=== PATIENT | male | born 1940 | race Caucasian/White ===

== ENCOUNTER → 2018-07-01 08:36 | Outpatient (BNVA) | payer MEDICARE, SELFPAY | PROVIDERS: Visit Provider Urology | DX: R35.0 Frequency of micturition (principal) | CPT/HCPCS: 99213 ==

== ENCOUNTER → 2018-09-24 08:31 | Outpatient (BNVA) | payer MEDICARE, SELFPAY | PROVIDERS: PCP Family Medicine; Visit Provider Urology | DX: R39.15 Urgency of urination (principal); N40.1 Benign prostatic hyperplasia with lower urinary tract symptoms | CPT/HCPCS: 99213 ==

== ENCOUNTER 2018-11-22 17:19 | Observation (INO) | payer MEDICARE, SELFPAY ==
[2018-11-22] VITALS (20 sets, daily range): BP systolic 85–124; BP diastolic 42–75; PULSE 67–104; RESP 12–38; TEMP 36.6–37; O2SAT 94–96
--- NOTE | 2018-11-22 17:49 | DI.COMBO_ITS ---
SYMPTOM/DIAGNOSIS: COUGH, SMOKER, HYPOTENSION, RT SIDED NECK PAIN, ALTERED MENTAL STAT FRONTAL AND LATERAL CHEST: Comparison is made with 09/03/15. Heart size and pulmonary vasculature are within normal limits. The lungs are free of infiltrates, effusions or pneumothoraces. The lungs are hyperinflated with flattened diaphragms suggesting underlying COPD. Degenerative changes are seen in the spine. There is mild accentuation of the kyphosis of the thorax. IMPRESSION: No acute pulmonary process. NONCONTRAST HEAD CT: Comparison is made with 09/26/12. There is prominence of the ventricles and sulci consistent with the patient's age. Areas of decreased attenuation are present in the white matter, most consistent with small vessel ischemic disease. No acute intracranial hemorrhage, infarct, midline shift or mass effect is identified. The ventricles are intact. The basilar cisterns are patent. The visualized paranasal sinuses are clear. The mastoid air cells are well pneumatized. The calvarium is intact. IMPRESSION: No acute intracranial process. CTA OF HEAD AND NECK: CT angiography was performed with multi slice acquisition and multi planar and 3D reconstruction. NECK: There is atherosclerosis of the aortic arch noted. The common carotid arteries are unremarkable. No occlusion,dissection or significant stenosis. The external carotid arteries are unremarkable. No evidence of occlusion or significant stenosis. There is atherosclerotic calcification in the left carotid bulb and the proximal left internal carotid artery with less than 50% stenosis noted. There is atherosclerosis seen in the right carotid bulb and origin of the right internal carotid artery without significant stenosis. No occlusion or dissection is seen. The vertebral arteries are unremarkable. No evidence of significant stenosis, dissection or occlusion. Degenerative changes are seen in the spine. Severe centrilobular and paraseptal emphysematous changes are seen in the lung apices. 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 No significant stenosis, dissection or occlusion is seen. HEAD: Routine post contrast examination was performed. Sagittal and coronal images were evaluated on the Siemens work station. There is atherosclerotic calcification of the cavernous sinus portions of the internal carotid arteries bilaterally. No evidence of occlusion, aneurysm or significant stenosis is seen. The anterior cerebral arteries are unremarkable. No evidence of aneurysm, occlusion or significant stenosis. The middle cerebral arteries are unremarkable. No evidence of aneurysm, occlusion or significant stenosis. The left posterior cerebral artery appears to arise from the posterior communicating artery. It is unremarkable without evidence of aneurysm, occlusion or significant stenosis. The right posterior cerebral artery is unremarkable without evidence of occlusion, aneurysm or significant stenosis. The vertebral arteries and basilar artery are unremarkable. No evidence of occlusion, dissection, aneurysm or significant stenosis. IMPRESSION: No evidence of intracranial arterial occlusion, dissection or aneurysm.
--- NOTE | 2018-11-22 17:55 | W.ED.GENAD ---
Discharge Plan Disposition Patient Disposition: [facility] INPATIENT Condition: Good Discharge Details Chief Complaint: Nk/Back Pain Clinical Impression: Hypotension, Hypokalemia Reason For Visit: HYPOTENSION,HYPOKALEMIA,NECK PAIN,EPISODE OF Admit Date/Time: 11/22/18 19:53 Admit Provider: Kamaljit Piper Attending Provider: Kamaljit Piper Primary Care Provider: Costa Lockett ED Provider: Yenni Johnson Discharge Data Discharge Date/Time-TO BE ENTERED AT DEPARTURE: 11/22/18 20:21 Medical Decision Making 77-year-old male with a history of hypertension and BPH and a history of chronic right-sided neck pain for the past 8 months who presents with worsening right-sided neck pain today. also states he had a period of confusion today which is since resolved. Patient drank 2 beers today. He is a daily drinker of 2-3 beers. Patient hypotensive. Systolic on arrival 88. Remainder vitals within normal limits. Patient appears nontoxic. Normal ENT exam. Lungs clear to auscultation. Abdomen soft and nontender. No focal deficits. He has tenderness to palpation of his right cervical paraspinal region but no midline C-spine/T-spine/L-spine tenderness. Differential diagnosis includes pneumonia, UTI, carotid dissection, electrolyte abnormality, ND. EKG notes a rate of 86, sinus, no acute ST findings. Will place an IV, bolus IV fluids, labs, lactate, blood cultures, chest x-ray, urinalysis, CT head. Will also obtain a CTA brain and neck. 1944 --labs and imaging reviewed. Normal white blood cell count and hemoglobin. Sodium 132. Potassium 2.3. Creatinine 1.79, GFR 36. Lactate 3. Troponin negative. Urinalysis not yet obtained. Discussed with nurse to obtain Specimen. CT head and CTA head and neck negative. Chest x-ray negative for acute findings. Patient's blood pressure improved with fluids, 111/71. Considering patient's age, hypokalemia which may be attributed to his Lasix, and an episode of confusion today, will admit patient for observation overnight, repeat potassium in the morning, and to monitor blood pressure. Suspect his blood pressure may be due to his blood pressure medications and alcohol use. 1999 --discussed with hospitalist -accepts patient for admission. Notified hospitalist that due to high number of patients in the emergency department after patient was admitted, patient was transferred to the floor prior to my discussion with him regarding his diagnosis and plan. Medical Records Medical records reviewed: Yes I reviewed the patient's medical records. Imaging Data Radiologic Study: Radiologist's impression: CT Head Without Contrast EXAM DATE/TIME: 11/22/2018 5:54 PM FINDINGS: Brain: Global cerebral atrophy is consistent with patient's age. Decreased attenuation within the white matter tracts of both cerebral hemispheres is nonspecific but typically seen with small vessel disease/chronic white matter ischemic changes of aging. No CT scan evidence of acute stroke. No intracranial hemorrhage or mass effect. Ventricles: Unremarkable. No ventriculomegaly. Bones/joints: Unremarkable. No acute fracture. Sinuses: Visualized sinuses are unremarkable. No acute sinusitis. Mastoid air cells: Visualized mastoid air cells are unremarkable. No mastoid effusion. Soft tissues: Unremarkable. Vasculature: Atherosclerosis of the cavernous carotid arteries. IMPRESSION: No acute abnormality. CT Angiography Head With Contrast EXAM DATE/TIME: 11/22/2018 5:54 PM FINDINGS: Right internal carotid artery: Atherosclerosis of the right cavernous carotid artery. No occlusion, dissection or aneurysm. Right anterior cerebral artery: Unremarkable. No occlusion or significant stenosis. No aneurysm. Right middle cerebral artery: Unremarkable. No occlusion or significant stenosis. No aneurysm. Right posterior cerebral artery: Unremarkable. No occlusion or significant stenosis. No aneurysm. Right vertebral artery: Unremarkable. No occlusion or significant stenosis. No aneurysm. Left internal carotid artery: Mild atherosclerosis of the left cavernous carotid artery. No occlusion, aneurysm or dissection. Left anterior cerebral artery: Unremarkable. No occlusion or significant stenosis. No aneurysm. Left middle cerebral artery: Unremarkable. No occlusion or significant stenosis. No aneurysm. Left posterior cerebral artery: Unremarkable. No occlusion or significant stenosis. No aneurysm. Left vertebral artery: Unremarkable. No occlusion or significant stenosis. No aneurysm. Basilar artery: Unremarkable. No occlusion or significant stenosis. No aneurysm. IMPRESSION: No intracranial arterial occlusion, dissection or aneurysm. CT Angiography Neck With Contrast EXAM DATE/TIME: 11/22/2018 5:54 PM FINDINGS: VASCULATURE: Right common carotid artery: Normal. No significant stenosis. No dissection or occlusion. Right internal carotid artery: Mild atherosclerosis of the proximal right ICA without significant stenosis or dissection. Right external carotid artery: Normal. No occlusion or significant stenosis. Right vertebral artery: Normal. No significant stenosis. No dissection or occlusion. Left common carotid artery: Normal. No significant stenosis. No dissection or occlusion. Left internal carotid artery: Mild atherosclerosis of the proximal left ICA with less than 50% stenosis. No left ICA dissection. Left external carotid artery: Normal. No occlusion or significant stenosis. Left vertebral artery: Normal. No significant stenosis. No dissection or occlusion. Aorta: Mild atherosclerosis of the aortic arch and origin of the great vessels. No significant stenosis. No dissection. NECK: Bones/joints: Degenerative spondylosis of the cervical spine. Soft tissues: Unremarkable. No significant soft tissue swelling. Lungs: Severe diffuse bilateral centrilobular and paraseptal emphysema. IMPRESSION: Mild atherosclerosis of the aortic arch, origin of the great vessels and proximal aspects of the right and left internal carotid arteries. No significant stenosis or dissection. XR Chest, 2 Views EXAM DATE/TIME: 11/22/2018 5:55 PM FINDINGS: The lungs are hyperexpanded, consistent with COPD. The lungs are clear. The cardiomediastinal silhouette and pulmonary vasculature are within normal limits. No pleural effusion or pneumothorax. Degenerative changes of aging within the thoracic spine with mild accentuation of thoracic kyphosis. IMPRESSION: 1. COPD. 2. No acute abnormality. Lab Data Lab results reviewed: Yes I reviewed the patient's lab results. 11/22/18 17:49 Blood Blood Culture - Pending 11/22/18 17:49 Blood Blood Culture - Pending Laboratory Tests Range/Units 11/22/18 11/22/18 11/22/18 17:48 17:48 17:48 WBC (4.4-10.8) k/cumm 6.02 RBC (4.50-6.00) m/cumm 3.80 L Hgb (13.5-17.5) g/dL 13.9 Hct (40.0-50.0) % 37.7 L MCV (80-95) fL 99.2 H MCH (27.0-33.0) pg 36.6 H MCHC (32.0-36.0) g/dL 36.9 H RDW (11.8-14.1) % 12.5 Plt Count (130-400) x1000/uL 152 MPV (8.0-11.0) fL 10.6 Immature Gran % 0.2 Neutrophils % 63.9 Lymphocytes % 23.3 Monocytes % 10.5 Eosinophils % 1.8 Basophils % 0.3 Absolute Neutrophils (1.2-6.7) k/cumm 3.85 Absolute Lymphocytes (1.2-3.4) k/cumm 1.40 Absolute Monocytes (0.11-0.7) k/cumm 0.63 Absolute Eosinophils (0.0-0.7) k/cumm 0.11 Absolute Basophils (0.0-0.2) k/cumm 0.02 Sodium (136-145) mmol/L 132 L Potassium (3.5-5.1) mmol/L 2.3 L* Chloride (98-107) mmol/L 92 L Carbon Dioxide (21.0-32.0) mmol/L 30.9 Anion Gap (3-11) mmol/L 9.1 BUN (7-18) mg/dL 15 Creatinine (0.70-1.30) mg/dL 1.79 H Estimated GFR/1.73 m2 (mL/min/1.73m2) 36.82 Glucose (70-100) mg/dL 99 Lactate (0.6-1.4) mmol/l Calcium (8.5-10.1) mg/dL 8.5 Magnesium (1.8-2.4) mg/dL 1.7 L Total Bilirubin (0.2-1.0) mg/dL 0.5 AST (15-37) U/L 25 ALT (12-78) U/L 18 Alkaline Phosphatase (46-116) U/L 48 Troponin I (0.00-0.06) ng/mL < 0.02 Total Protein (6.4-8.2) g/dL 6.9 Albumin (3.4-5.0) g/dL 3.4 Ethyl Alcohol (<3) mg/dL 136.6 Range/Units 11/22/18 18:00 WBC (4.4-10.8) k/cumm RBC (4.50-6.00) m/cumm Hgb (13.5-17.5) g/dL Hct (40.0-50.0) % MCV (80-95) fL MCH (27.0-33.0) pg MCHC (32.0-36.0) g/dL RDW (11.8-14.1) % Plt Count (130-400) x1000/uL MPV (8.0-11.0) fL Immature Gran % Neutrophils % Lymphocytes % Monocytes % Eosinophils % Basophils % Absolute Neutrophils (1.2-6.7) k/cumm Absolute Lymphocytes (1.2-3.4) k/cumm Absolute Monocytes (0.11-0.7) k/cumm Absolute Eosinophils (0.0-0.7) k/cumm Absolute Basophils (0.0-0.2) k/cumm Sodium (136-145) mmol/L Potassium (3.5-5.1) mmol/L Chloride (98-107) mmol/L Carbon Dioxide (21.0-32.0) mmol/L Anion Gap (3-11) mmol/L BUN (7-18) mg/dL Creatinine (0.70-1.30) mg/dL Estimated GFR/1.73 m2 (mL/min/1.73m2) Glucose (70-100) mg/dL Lactate (0.6-1.4) mmol/l 3.0 H Calcium (8.5-10.1) mg/dL Magnesium (1.8-2.4) mg/dL Total Bilirubin (0.2-1.0) mg/dL AST (15-37) U/L ALT (12-78) U/L Alkaline Phosphatase (46-116) U/L Troponin I (0.00-0.06) ng/mL Total Protein (6.4-8.2) g/dL Albumin (3.4-5.0) g/dL Ethyl Alcohol (<3) mg/dL ECG Data Attestation: I personally reviewed and interpreted this ECG (s) as follows: Interpretation: Rate of 86, sinus, PACs. No acute ST elevation or depression. QTc 440. QRS 88. HPI General Mode of arrival: wheelchair. Date/Time Provider Initiated Documentation: 11/22/18 17:36. Limitations to Documentation: no limitations. Information obtained by: patient and family. HPI Narrative: Patient is a 77-year-old male with history of hypertension and BPH who presents for right-sided neck pain for the past 8 months, worse today at home. Denies any new injury. Patient denies headache, fever, chest pain, shortness of breath, nausea, vomiting. Patient states he had 2 beers today. states patient had a period of severe right-sided neck pain and appeared confused but now he seems more back at his baseline. Patient denies any unilateral extremity weakness or numbness. Related Data Home Medications Medication Instructions Recorded Confirmed ibuprofen 600 mg PO Q8H PRN PRN #30 tab 03/21/18 11/21/18 lisinopril 20 mg tablet 20 mg PO DAILY #90 tab-cap 11/21/18 11/21/18 tamsulosin 0.4 mg capsule 0.4 mg PO DAILY #90 cap 11/21/18 11/21/18 trazodone 50 mg tablet 50 mg PO hs prn #90 tab-cap 11/21/18 11/21/18 potassium chloride [Klor-Con M10] 10 meq PO BID #14 tab 11/23/18 Previous Rx's Medication Instructions Recorded ibuprofen 600 mg PO Q8H PRN PRN #30 tab 03/21/18 lisinopril 20 mg tablet 20 mg PO DAILY #90 tab-cap 11/21/18 tamsulosin 0.4 mg capsule 0.4 mg PO DAILY #90 cap 11/21/18 trazodone 50 mg tablet 50 mg PO hs prn #90 tab-cap 11/21/18 potassium chloride [Klor-Con M10] 10 meq PO BID #14 tab 11/23/18 Allergies Allergy/AdvReac Type Severity Reaction Status Date / Time hydrochlorothiazide AdvReac Severe URINARY Verified 11/21/18 13:03 FREQ General Stated Complaint: Nk/Back Pain JULIENNE: 3 Review of Systems Review of Systems All systems reviewed & are unremarkable except as noted in HPI and below Constitutional Denies chills and Denies fever(s) Eyes Denies blurry vision ENT Denies dizziness, Reports neck pain, Denies sore throat and Denies throat swelling Cardiovascular Denies chest pain and Denies dyspnea Respiratory Reports cough and Denies dyspnea Gastrointestinal Denies abdominal pain, Denies diarrhea and Denies vomiting Genitourinary Denies hematuria and Denies dysuria Musculoskeletal Denies back pain, Reports neck pain and Denies numbness Integumentary/Breasts Denies lesions and Denies rash Neurologic Denies dizziness, Denies focal weakness and Denies numbness Allergic/Immunologic Denies throat swelling [facility] Medical History BPH (benign prostatic hyperplasia) (Chronic) HTN (hypertension) (Chronic) Surgical History History of cataract surgery (Chronic) Colonoscopy - [facility] Social History Smoking and Tabacco status: Current every day alcohol intake: current alcohol intake frequency: 3 or more drinks per day substance use type: does not use Exam Const General: cooperative and no acute distress Orientation: alert, awake and oriented x3 HENMT Head: normal to inspection Ears: hearing grossly normal bilaterally, external ears normal and TM's normal bilaterally General nose exam: external nose normal Face and sinus: normal facial exam Mouth: oral mucosae normal Teeth and gingiva: dentition normal Throat: posterior oropharynx normal Eyes General: appearance normal, both eyes and all related structures Eyelids: eyelids normal Pupils: PERRL EOM: EOM intact bilaterally Neck Neck: normal visual inspection Lymphatic: no lymphadenopathy noted Chest Chest: normal inspection of the chest Resp Effort & Inspection: normal respiratory effort and able to speak in complete sentences Auscultation: clear to auscultation bilaterally Cardio Rate: regular rate Rhythm: regular rhythm GI Inspection: normal to inspection Palpation: soft, not firm, no guarding, no hepatosplenomegaly, no masses and nontender Auscultation: normal bowel sounds Back/Spine/Pelvis Cervical Spine: cervical muscular tenderness (Right-sided) and No cervical spinal tenderness Thoracic/Lumbar Spine: No thoracic spinal tenderness and No lumbar spinal tenderness Skin General skin exam: no rashes or lesions noted Neuro General: alert and awake Cranial Nerves: CN's II-XI intact bilaterally Cognition: normal cognition Speech: speech normal Gait: normal gait Motor: muscle tone normal throughout and strength 5/5 throughout Sensory Exam: no sensory deficits noted Extrem General: normal to inspection, full ROM, normal capillary refill and no edema Psych Appearance: grossly normal Mental Status: mental status grossly normal Speech and Movement: speech and movement normal Affect: normal affect Thought Process: normal Course Vital Signs Temperature 98.4 F 11/22/18 17:33 Pulse 72 11/22/18 17:33 Respiratory Rate 16 11/22/18 17:33 Blood Pressure 90/45 L 11/22/18 17:33 Pulse Oximetry 95 11/22/18 17:33 Temperature 98.4 F 11/22/18 17:33 Temperature Source Skin 03/08/19 17:33 Pulse 72 11/22/18 17:33 Respiratory Rate 16 11/22/18 17:33 Blood Pressure 90/45 L 11/22/18 17:33 Blood Pressure Position Supine 11/22/18 17:33 Pulse Oximetry 95 11/22/18 17:33 Oxygen Delivery Method Room Air 11/22/18 17:33 Oxygen Flow Rate 0 11/22/18 17:33 Pain Level 10 11/22/18 17:43 Lab/Test Results Lab/Test Results: 11/22/18 17:49 Blood Blood Culture - Pending 11/22/18 17:49 Blood Blood Culture - Pending
[2018-11-22 18:11] LABS: Abs Immature Grans 0.01 k/cumm (0.0-0.09); Absolute Basophil Count 0.02 k/cumm (0.0-0.2); Absolute Eosinophil Count 0.11 k/cumm (0.0-0.7); Absolute Monocyte Count 0.63 k/cumm (0.11-0.7); Absolute Neutrophil Count 3.85 k/cumm (1.2-6.7); Basophils % 0.3; Eosinophils % 1.8; HCT 37.7 % (40.0-50.0); HGB 13.9 g/dL (13.5-17.5); Immature Grans % 0.2; Lymphocytes % 23.3; Mean Corp. HGB Concentration 36.9 g/dL (32.0-36.0); Mean Corpuscular Hemoglobin 36.6 pg (27.0-33.0); Mean Corpuscular Volume 99.2 fL (80-95); Mean Platelet Volume 10.6 fL (8.0-11.0); Monocytes % 10.5; Neutrophils % 63.9; Platelet Count 152 x1000/uL (130-400); RBC Distribution Width 12.5 % (11.8-14.1); White Blood Cell Count 6.02 k/cumm (4.4-10.8)
[2018-11-22 18:21] LABS: ETHANOL BLOOD 136.6 mg/dL (<3)
[2018-11-22 18:24] LABS: ALT 18 U/L (12-78); AST 25 U/L (15-37); Albumin 3.4 g/dL (3.4-5.0); Alkaline Phosphatase 48 U/L (46-116); Anion Gap 9.1 mmol/L (3-11); BUN 15 mg/dL (7-18); Bilirubin, Total 0.5 mg/dL (0.2-1.0); CO2 30.9 mmol/L (21.0-32.0); CREATININE 1.79 mg/dL (0.70-1.30); Calcium 8.5 mg/dL (8.5-10.1); Chloride 92 mmol/L (98-107); Estimated GFR 36.82 (mL/min/1.73m2); Glucose 99 mg/dL (70-100); Magnesium 1.7 mg/dL (1.8-2.4); Sodium 132 mmol/L (136-145); Total Protein 6.9 g/dL (6.4-8.2)
[2018-11-22 18:25] LABS: Potassium 2.3 mmol/L (3.5-5.1); Troponin I < 0.02 ng/mL (0.00-0.06)
--- NOTE | 2018-11-22 18:46 | DI.VRAD_ITS ---
EXAM: CT Head Without Contrast EXAM DATE/TIME: 11/22/2018 5:54 PM CLINICAL HISTORY: 77 years old, male; Signs and symptoms; Altered mental status/memory loss; Additional info: R/O acute process TECHNIQUE: Axial computed tomography images of the head/brain without contrast. Coronal and sagittal reformatted images were created and reviewed. COMPARISON: CT HEAD WITHOUT CONTRAST 09/26/2012 8:26 PM FINDINGS: Brain: Global cerebral atrophy is consistent with patient's age. Decreased attenuation within the white matter tracts of both cerebral hemispheres is nonspecific but typically seen with small vessel disease/chronic white matter ischemic changes of aging. No CT scan evidence of acute stroke. No intracranial hemorrhage or mass effect. Ventricles: Unremarkable. No ventriculomegaly. Bones/joints: Unremarkable. No acute fracture. Sinuses: Visualized sinuses are unremarkable. No acute sinusitis. Mastoid air cells: Visualized mastoid air cells are unremarkable. No mastoid effusion. Soft tissues: Unremarkable. Vasculature: Atherosclerosis of the cavernous carotid arteries. IMPRESSION: No acute abnormality. Dictated and Authenticated by: Slick Young MD. Ordering:MAC Hyman MD
--- NOTE | 2018-11-22 18:48 | DI.VRAD_ITS ---
EXAM: XR Chest, 2 Views EXAM DATE/TIME: 11/22/2018 5:55 PM CLINICAL HISTORY: 77 years old, male; Signs and symptoms; Cough; Additional info: Smoker, hypotension TECHNIQUE: XR of the chest, 2 views. COMPARISON: CR CHEST 2 VIEWS PA,LAT 09/03/2015 9:50 AM FINDINGS: The lungs are hyperexpanded, consistent with COPD. The lungs are clear. The cardiomediastinal silhouette and pulmonary vasculature are within normal limits. No pleural effusion or pneumothorax. Degenerative changes of aging within the thoracic spine with mild accentuation of thoracic kyphosis. IMPRESSION: 1. COPD. 2. No acute abnormality. Dictated and Authenticated by: Slick Young MD. Ordering:MAC Hyman MD
[2018-11-22] MEDS: Omnipaque 350 MG/ML 100 ML BTL IJ (18:53)
[2018-11-22] MEDS: Normal Saline Flush 10 ML SYR IVP ×2 (19:13→22:21)
[2018-11-22] MEDS: Potassium Chloride 20 MEQ TABCR 40 MEQ PO (19:13)
[2018-11-22] MEDS: POTASSIUM CHLORIDE 20 MEQ/100 ML BAG 50 MEQ IVPB (19:14)
[2018-11-22] MEDS: Normal Saline 500 ML 1000 ML IV (19:16)
--- NOTE | 2018-11-22 19:39 | DI.VRAD_ITS ---
EXAM: CT Angiography Head With Contrast EXAM DATE/TIME: 11/22/2018 5:54 PM CLINICAL HISTORY: 77 years old, male; Signs and symptoms; Other: R sided neck pain, hypotension, R/O carotid dissection; Additional info: Smoker, hypotension TECHNIQUE: Axial computed tomographic angiography images of the head with intravenous contrast using CT angiography protocol. All CT scans at this facility use at least one of these dose optimization techniques: automated exposure control; mA and/or kV adjustment per patient size (includes targeted exams where dose is matched to clinical indication); or iterative reconstruction. Coronal reformatted images were created and reviewed. MIP reconstructed images were created and reviewed. CONTRAST: Contrast Material: 85 ml of omnipaque 350; Contrast Route: iv COMPARISON: CT HEAD WO 11/22/2018 6:07 PM FINDINGS: Right internal carotid artery: Atherosclerosis of the right cavernous carotid artery. No occlusion, dissection or aneurysm. Right anterior cerebral artery: Unremarkable. No occlusion or significant stenosis. No aneurysm. Right middle cerebral artery: Unremarkable. No occlusion or significant stenosis. No aneurysm. Right posterior cerebral artery: Unremarkable. No occlusion or significant stenosis. No aneurysm. Right vertebral artery: Unremarkable. No occlusion or significant stenosis. No aneurysm. Left internal carotid artery: Mild atherosclerosis of the left cavernous carotid artery. No occlusion, aneurysm or dissection. Left anterior cerebral artery: Unremarkable. No occlusion or significant stenosis. No aneurysm. Left middle cerebral artery: Unremarkable. No occlusion or significant stenosis. No aneurysm. Left posterior cerebral artery: Unremarkable. No occlusion or significant stenosis. No aneurysm. Left vertebral artery: Unremarkable. No occlusion or significant stenosis. No aneurysm. Basilar artery: Unremarkable. No occlusion or significant stenosis. No aneurysm. IMPRESSION: No intracranial arterial occlusion, dissection or aneurysm. EXAM: CT Angiography Neck With Contrast EXAM DATE/TIME: 11/22/2018 5:54 PM CLINICAL HISTORY: 77 years old, male; Signs and symptoms; Other: R sided neck pain, hypotension, R/O carotid dissection; Additional info: Smoker, hypotension TECHNIQUE: Axial computed tomographic angiography images of the neck with intravenous contrast using CT angiography protocol. All CT scans at this facility use at least one of these dose optimization techniques: automated exposure control; mA and/or kV adjustment per patient size (includes targeted exams where dose is matched to clinical indication); or iterative reconstruction. Coronal reformatted images were created and reviewed. MIP reconstructed images were created and reviewed. CONTRAST: Contrast Material: 85 ml of omnipaque 350; Contrast Route: iv COMPARISON: CT HEAD WO 11/22/2018 6:07 PM FINDINGS: VASCULATURE: Right common carotid artery: Normal. No significant stenosis. No dissection or occlusion. Right internal carotid artery: Mild atherosclerosis of the proximal right ICA without significant stenosis or dissection. Right external carotid artery: Normal. No occlusion or significant stenosis. Right vertebral artery: Normal. No significant stenosis. No dissection or occlusion. Left common carotid artery: Normal. No significant stenosis. No dissection or occlusion. Left internal carotid artery: Mild atherosclerosis of the proximal left ICA with less than 50% stenosis. No left ICA dissection. Left external carotid artery: Normal. No occlusion or significant stenosis. Left vertebral artery: Normal. No significant stenosis. No dissection or occlusion. Aorta: Mild atherosclerosis of the aortic arch and origin of the great vessels. No significant stenosis. No dissection. NECK: Bones/joints: Degenerative spondylosis of the cervical spine. Soft tissues: Unremarkable. No significant soft tissue swelling. Lungs: Severe diffuse bilateral centrilobular and paraseptal emphysema. IMPRESSION: Mild atherosclerosis of the aortic arch, origin of the great vessels and proximal aspects of the right and left internal carotid arteries. No significant stenosis or dissection. COMMENT: Reference per NASCET criteria for degree of stenosis: Mild: less than 50% stenosis. Moderate: 50-69% stenosis. Severe: 70-94% stenosis. Near occlusion: 95-99% stenosis. Dictated and Authenticated by: Slick Young MD. Ordering:MAC Hyman MD
--- NOTE | 2018-11-22 21:29 | HPE_ITS ---
Date of service: 11/22/18 Time of Service: 21:28 Assessment and Plan (1) Altered mental status: Start date: 11/22/18 Current visit: Yes Status: Acute This is a 77-year-old gentleman who drinks beer daily and most likely became mildly dehydrated with alcohol intake and being on diuretics which resulted in altered mental status but also mild hypotension which corrected with IV fluids and hypokalemia which will be corrected with IV and oral supplement. He was at his baseline for the time I saw him and during his stay in the ED but was kept for observation because of his presentation and the need to replace potassium prior to releasing home. He was most concerned about his neck pain which was persisting and has poor insight into his home habits possibly exace rbating his medical problems. He will be observed overnight with IV hydration and IV potassium along with oral potassium to be continued in the morning with follow-up labs. If he is stable he will be discharged home for continued medical follow-up with his PMD. (2) Hypokalemia: Start date: 11/22/18 Current visit: Yes Status: Acute Patient is currently on furosemide but not on potassium supplement. This may need to be followed closely as outpatient supplemented IV and orally and probably discharged on oral supplement with close follow-up as an outpatient with PMD. (3) Hypotension: Start date: 11/22/18 Current visit: Yes Status: Acute This most likely secondary to mild dehydration which responded to IV fluid resuscitation. Chronically he is on Lasix and should have adequate hydration without use of alcohol daily. (4) Dehydration: Start date: 11/22/18 Current visit: Yes Status: Acute As stated above the patient most likely has this is a problem secondary to alcohol intake with ongoing diuretics. He should avoid alcohol hydrate well during the day with IV hydration overnight during his observation. This probably was the cause of his altered mental status as well. History of Present Illness Chief Complaint: Neck pain with mental status changes just prior to arrival to ED Narrative: This is a 77-year-old gentleman who has chronic neck pain for the last 8 months which he was told is arthritis. He was worsening just prior to presentation to the ED tonight with the patient having a change in mental status acting confused compared to his baseline and his called the ambulance and to be evaluated in the ED. In the ED after IV fluid resuscitation for mild hypotension he was more toward his baseline, smelled strongly of alcohol though he stated he only drinks 2 beers a day and he had less severe neck pain. With IV hydration he improved overall except for his neck pain persisting at the time I saw him he thought he was simply coming in to get something for his neck pain and to go home. He was found to be hypokalemic requiring IV potassium replacement and appears slightly dry which may have been why he cleared up some with IV hydration in the ED. He was admitted for observation for continued IV fluid resuscitation and replacement of the potassium. Questioned him about his drinking and smoking and advised that this was not healthy with his use of Lasix chronically and would not help his chronic arthritic pain. He was cooperative during exam but avoided talking about stopping his alcohol and tobacco. He did state that he saw a urologist to help with his nocturia and was placed on tamsulosin but thought that taken his Lasix later in the day just afternoon helped more than the pill for his prostate. He is not on potassium supplement chronically. He did need a urinalysis to be checked and this is pending. He had no fever or other urinar complaints other than nocturia and he had no other back pain other than neck pain. His appetite is been fair and he has no focal neurological complaints. He denies any chest pain and his edema is chronically stable on Lasix. Denies any increased shortness of breath though he does have some respiratory treatments at home and does smoke. Review of Systems Review of Systems 13 point review of systems otherwise unrevealing or stable and as per HPI. [facility] Medical History BPH (benign prostatic hyperplasia) (Chronic) HTN (hypertension) (Chronic) Surgical History History of cataract surgery (Chronic) Colonoscopy - [facility] Social History Smoking and Tabacco status: Current every day alcohol intake: current alcohol intake frequency: 3 or more drinks per day substance use type: does not use Meds Home Medications Medication Instructions Recorded Confirmed Type ibuprofen 600 mg PO Q8H PRN PRN #30 tab 03/21/18 11/21/18 Rx furosemide 20 mg tablet See Rx Instructions PO QAM PRN #30 11/21/18 11/21/18 Rx tab-cap lisinopril 20 mg tablet 20 mg PO DAILY #90 tab-cap 11/21/18 11/21/18 Rx tamsulosin 0.4 mg capsule 0.4 mg PO DAILY #90 cap 11/21/18 11/21/18 Rx trazodone 50 mg tablet 50 mg PO hs prn #90 tab-cap 11/21/18 11/21/18 Rx Allergies Allergy/AdvReac Type Severity Reaction Status Date / Time hydrochlorothiazide AdvReac Severe URINARY Verified 11/21/18 13:03 FREQ Exam Narrative Exam Narrative: General: Patient appears appropriate for age slightly agitated during the initial part of my exam but he calm down and was cooperative as we proceeded. He is alert and oriented at least to person and place. He is in no acute distress. He does have a strong odor of alcohol on his breath. HEENT: Normocephalic, eyes with pupils equal and react to light symmetrically, extraocular movement intact and sclera anicteric. Ears normal. Oropharynx slightly dry oral mucosa and dentures above and below. Neck: Supple with some discomfort with range of motion and decreased range of motion overall. He does have increased muscle tone and tenderness of the right side of his neck. Lungs: Bronchovesicular breath sounds diffusely with decreased aeration over both lung marroquin but no auscultated rales or rhonchi and no expiratory wheeze or increased expiratory phase. Heart: Distant heart sounds with regular rate and rhythm and no appreciated murmur or gallop. Abdomen: Scaphoid, soft and nontender with no palpable hepatomegaly. Bowel sounds are positive in present in all quadrants. Genitalia and rectal: Deferred. Extremities: No pitting edema, cyanosis or clubbing with decreased range of motion of his large joints but no joint swelling. Muscle atrophy diffusely. Skin: Tanned and brown, decreased turgor with increased wrinkling and rough texture over sun exposed areas. No rashes. Neuro: Cranial nerves II through XII grossly intact, no focalizing motor deficits. Psych: Poor insight into his tobacco and alcohol use with some denial. Results Imaging Additional studies: XR Chest, 2 Views EXAM DATE/TIME: 11/22/2018 5:55 PM CLINICAL HISTORY: 77 years old, male; Signs and symptoms; Cough; Additional info: Smoker, hypotension TECHNIQUE: XR of the chest, 2 views. COMPARISON: CR CHEST 2 VIEWS PA,LAT 09/03/2015 9:50 AM FINDINGS: The lungs are hyperexpanded, consistent with COPD. The lungs are clear. The cardiomediastinal silhouette and pulmonary vasculature are within normal limits. No pleural effusion or pneumothorax. Degenerative changes of aging within the thoracic spine with mild accentuation of thoracic kyphosis. IMPRESSION: 1. COPD. 2. No acute abnormality. Dictated and Authenticated by: Slick Young MD. CT Angiography Head With Contrast EXAM DATE/TIME: 11/22/2018 5:54 PM CLINICAL HISTORY: 77 years old, male; Signs and symptoms; Other: R sided neck pain, hypotension, R/O carotid dissection; Additional info: Smoker, hypotension TECHNIQUE: Axial computed tomographic angiography images of the head with intravenous contrast using CT angiography protocol. All CT scans at this facility use at least one of these dose optimization techniques: automated exposure control; mA and/or kV adjustment per patient size (includes targeted exams where dose is matched to clinical indication); or iterative reconstruction. Coronal reformatted images were created and reviewed. MIP reconstructed images were created and reviewed. CONTRAST: Contrast Material: 85 ml of omnipaque 350; Contrast Route: iv COMPARISON: CT HEAD WO 11/22/2018 6:07 PM FINDINGS: Right internal carotid artery: Atherosclerosis of the right cavernous carotid artery. No occlusion, dissection or aneurysm. Right anterior cerebral artery: Unremarkable. No occlusion or significant stenosis. No aneurysm. Right middle cerebral artery: Unremarkable. No occlusion or significant stenosis. No aneurysm. Right posterior cerebral artery: Unremarkable. No occlusion or significant stenosis. No aneurysm. Right vertebral artery: Unremarkable. No occlusion or significant stenosis. No aneurysm. Left internal carotid artery: Mild atherosclerosis of the left cavernous carotid artery. No occlusion, aneurysm or dissection. Left anterior cerebral artery: Unremarkable. No occlusion or significant stenosis. No aneurysm. Left middle cerebral artery: Unremarkable. No occlusion or significant stenosis. No aneurysm. Left posterior cerebral artery: Unremarkable. No occlusion or significant stenosis. No aneurysm. Left vertebral artery: Unremarkable. No occlusion or significant stenosis. No aneurysm. Basilar artery: Unremarkable. No occlusion or significant stenosis. No aneurysm. IMPRESSION: No intracranial arterial occlusion, dissection or aneurysm. EXAM: CT Angiography Neck With Contrast EXAM DATE/TIME: 11/22/2018 5:54 PM CLINICAL HISTORY: 77 years old, male; Signs and symptoms; Other: R sided neck pain, hypotension, R/O carotid dissection; Additional info: Smoker, hypotension TECHNIQUE: Axial computed tomographic angiography images of the neck with intravenous contrast using CT angiography protocol. All CT scans at this facility use at least one of these dose optimization techniques: automated exposure control; mA and/or kV adjustment per patient size (includes targeted exams where dose is matched to clinical indication); or iterative reconstruction. Coronal reformatted images were created and reviewed. MIP reconstructed images were created and reviewed. CONTRAST: Contrast Material: 85 ml of omnipaque 350; Contrast Route: iv COMPARISON: CT HEAD WO 11/22/2018 6:07 PM FINDINGS: VASCULATURE: Right common carotid artery: Normal. No significant stenosis. No dissection or occlusion. Right internal carotid artery: Mild atherosclerosis of the proximal right ICA without significant stenosis or dissection. Right external carotid artery: Normal. No occlusion or significant stenosis. Right vertebral artery: Normal. No significant stenosis. No dissection or occlusion. Left common carotid artery: Normal. No significant stenosis. No dissection or occlusion. Left internal carotid artery: Mild atherosclerosis of the proximal left ICA with less than 50% stenosis. No left ICA dissection. Left external carotid artery: Normal. No occlusion or significant stenosis. Left vertebral artery: Normal. No significant stenosis. No dissection or occlusion. Aorta: Mild atherosclerosis of the aortic arch and origin of the great vessels. No significant stenosis. No dissection. NECK: Bones/joints: Degenerative spondylosis of the cervical spine. Soft tissues: Unremarkable. No significant soft tissue swelling. Lungs: Severe diffuse bilateral centrilobular and paraseptal emphysema. IMPRESSION: Mild atherosclerosis of the aortic arch, origin of the great vessels and proximal aspects of the right and left internal carotid arteries. No significant stenosis or dissection. COMMENT: Reference per NASCET criteria for degree of stenosis: Mild: less than 50% stenosis. Moderate: 50-69% stenosis. Severe: 70-94% stenosis. Near occlusion: 95-99% stenosis. Dictated and Authenticated by: Slick Young MD. Labs : 11/22/18 17:48 11/22/18 17:48 Laboratory Results - last 24 hr 11/22/18 11/22/18 11/22/18 17:48 17:48 17:48 WBC 6.02 RBC 3.80 L Hgb 13.9 Hct 37.7 L MCV 99.2 H MCH 36.6 H MCHC 36.9 H RDW 12.5 Plt Count 152 MPV 10.6 Immature Gran % 0.2 Neutrophils % 63.9 Lymphocytes % 23.3 Monocytes % 10.5 Eosinophils % 1.8 Basophils % 0.3 Absolute Neutrophils 3.85 Absolute Lymphocytes 1.40 Absolute Monocytes 0.63 Absolute Eosinophils 0.11 Absolute Basophils 0.02 Sodium 132 L Potassium 2.3 L* Chloride 92 L Carbon Dioxide 30.9 Anion Gap 9.1 BUN 15 Creatinine 1.79 H Estimated GFR/1.73 m2 36.82 Glucose 99 Lactate Calcium 8.5 Magnesium 1.7 L Total Bilirubin 0.5 AST 25 ALT 18 Alkaline Phosphatase 48 Troponin I < 0.02 Total Protein 6.9 Albumin 3.4 Ethyl Alcohol 136.6 11/22/18 18:00 WBC RBC Hgb Hct MCV MCH MCHC RDW Plt Count MPV Immature Gran % Neutrophils % Lymphocytes % Monocytes % Eosinophils % Basophils % Absolute Neutrophils Absolute Lymphocytes Absolute Monocytes Absolute Eosinophils Absolute Basophils Sodium Potassium Chloride Carbon Dioxide Anion Gap BUN Creatinine Estimated GFR/1.73 m2 Glucose Lactate 3.0 H Calcium Magnesium Total Bilirubin AST ALT Alkaline Phosphatase Troponin I Total Protein Albumin Ethyl Alcohol Last Vital Signs Temp 36.9 C 11/22/18 20:44 Pulse 75 11/22/18 20:44 Resp 18 11/22/18 20:44 BP 111/71 11/22/18 20:44 Pulse Ox 95 11/22/18 20:44
[2018-11-22] MEDS: Pantoprazole 40 MG VIAL IVP (22:18)
[2018-11-22] MEDS: MAGNESIUM SULFATE 1 GM/100 ML BAG IVPB (22:23)
[2018-11-22] MEDS: Heparin 5,000 UNITS/ML VIAL 5000 UNITS SC (22:23)
[2018-11-22 22:27] LABS: Bilirubin Negative (Negative); Blood Negative (Negative); Clarity Clear; Glucose Negative (Negative); Ketones Negative (Negative); Leukocyte Esterase Negative (Negative); Nitrite Negative (Negative); Specific Gravity <= 1.005 (1.005-1.025); Urobilinogen 0.2 EU/dL (Up TO 0.2); pH 5.5 (5-8)
[2018-11-23 01:54] LABS: Troponin I < 0.02 ng/mL (0.00-0.06)
[2018-11-23 03:05] VITALS: BP 145/69; PULSE 83; RESP 18; TEMP 36.9; O2SAT 96
--- NOTE | 2018-11-23 04:04 | NUR.NOTE ---
Nursing Note: Pt is admitted in rm. 209 on observation status. Alert and oriented, with presenting problems of neck and shoulder blades pain. Refused to drink and eat and denied of pain until this time. Oriented to call lights system and bed alarm in progress.
[2018-11-23] MEDS: Heparin 5,000 UNITS/ML VIAL 5000 UNITS SC (06:02)
[2018-11-23 07:12] LABS: HCT 36.6 % (40.0-50.0); Mean Corp. HGB Concentration 35.5 g/dL (32.0-36.0); Mean Corpuscular Hemoglobin 35.4 pg (27.0-33.0); Mean Corpuscular Volume 99.7 fL (80-95); Mean Platelet Volume 10.7 fL (8.0-11.0); Platelet Count 139 x1000/uL (130-400); RBC 3.67 m/cumm (4.50-6.00); RBC Distribution Width 12.5 % (11.8-14.1); White Blood Cell Count 3.36 k/cumm (4.4-10.8)
[2018-11-23 07:40] LABS: ALT 14 U/L (12-78); AST 23 U/L (15-37); Albumin 3.2 g/dL (3.4-5.0); Alkaline Phosphatase 47 U/L (46-116); Anion Gap 7.9 mmol/L (3-11); BUN 14 mg/dL (7-18); Bilirubin, Total 0.7 mg/dL (0.2-1.0); CO2 31.1 mmol/L (21.0-32.0); CREATININE 1.44 mg/dL (0.70-1.30); Calcium 8.3 mg/dL (8.5-10.1); Chloride 98 mmol/L (98-107); Estimated GFR 47.32 (mL/min/1.73m2); Glucose 85 mg/dL (70-100); Potassium 3.3 mmol/L (3.5-5.1); Sodium 137 mmol/L (136-145); Total Protein 6.6 g/dL (6.4-8.2)
[2018-11-23] MEDS: POTASSIUM CHLORIDE/0.9% NACL 1,000 ML 100 MEQ IV (07:45)
[2018-11-23 07:54] LABS: Troponin I 0.02 ng/mL (0.00-0.06)
[2018-11-23] MEDS: Potassium Chloride 10 MEQ TABCR PO (08:30)
[2018-11-23] MEDS: Tamsulosin 0.4 MG CAPCR PO (08:30)
[2018-11-23] MEDS: Lisinopril 20 MG TAB PO (08:30)
--- NOTE | 2018-11-23 10:14 | PDOC.CMPRO ---
Care Management Progress Note Dave was admitted observation overnight with IV hydration and IV potassium with plan for oral potassium to be continued in the morning with follow-up labs. Once stable he will be discharged home for continued medical follow-up with his PCP. Patient admitted with transient altered mental status, hypotension and hypokalemia all of which improved with IV hydration, oral supplementation of potassium and time. He is a current everyday smoker 1.5/ppd. PMH significant for COPD, GERD, benign prostate hyperplasia, hypertension, PVD, urgency of urination, hx of colonoscopy and cataract surgery. He resides with his significant other, Sheyla in [place], [place]. She will transport him home upon discharge.
--- NOTE | 2018-11-23 10:59 | W.PM.DS.N ---
Date of service: 11/23/18 Time of Service: 11:00 DS: Diagnosis Discharge Diagnosis (1) Altered mental status: Status: Acute Asessment and Plan: Mental status back to baseline on day of discharge. Etiology attributed to dehydration and hypotension. (2) Hypokalemia: Status: Acute Asessment and Plan: Improved with oral supplementation. Lasix put on hold at discharge and discharged with oral potassium supplement. Will need follow-up potassium checked in 1 week. (3) Hypotension: Status: Acute Asessment and Plan: Responded to IV fluids and holding his diuretic. Discharged just on lisinopril and will need outpatient follow-up for med adjustment. (4) Dehydration: Status: Acute Asessment and Plan: Resolved with IV fluids. Taking p.o. well by day of discharge. (5) Neck pain: Status: Chronic Asessment and Plan: Chronic problem, no change made to his outpatient dose of tramadol. No complaints of neck pain on the morning of discharge. (6) Essential hypertension: Status: Chronic Asessment and Plan: No further episodes of low blood pressure, blood pressure crept upward during hospitalization. Diuretic on hold at discharge. Will need outpatient monitoring for further med adjustment. Discharge Plan Disposition Patient Disposition: HOME Condition: Good Discharge Details Reason For Visit: HYPOTENSION,HYPOKALEMIA,NECK PAIN,EPISODE OF Admit Date/Time: 11/22/18 19:53 Admit Provider: Kamaljit Piper Attending Provider: Kamaljit Piper Primary Care Provider: Costa Lockett [facility] Course Hospital Course: Patient admitted with transient altered mental status, hypotension and hypokalemia all of which improved with IV hydration, oral supplementation of potassium and time. He never had any focal neurologic signs or symptoms. He had initial complaints of neck pain which resolved without any particular intervention other than continuing his outpatient dosing of tramadol. In discussion with him regarding his use of diuretic, he states that it helps decrease his nocturia if he takes 40 mg of Lasix midday. I urged him to stop this medication at least transiently until seen in follow-up to see if it makes any difference with his nocturia. I also discussed with him his alcohol use and he has no intent to cut down or stop his current 2 beer per day drinking pattern. Likewise, no progress made and encouraged him to cut down on his tobacco use. Diagnostic studies during hospitalization included admission potassium of 2.3, 3.3 on discharge after oral supplementation. Creatinine 1.79 on admission 1.[address] with age-related changes, no infarct or bleed. Chest x-ray with changes compatible with COPD but no infiltrate. Medication changes made during hospitalization?furosemide put on hold. Potassium supplement for 7 days. Home Meds and New Rx's Prescriptions: New potassium chloride [Klor-Con M10] 10 mEq Tablet,Er Particles/Crystals 10 meq PO BID Qty: 14 RF: 1 Continued lisinopril 20 mg tablet 20 mg PO DAILY Qty: 90 RF: 4 tamsulosin [Flomax] 0.4 mg capsule 0.4 mg PO DAILY Qty: 90 RF: 4 trazodone 50 mg tablet 50 mg PO hs prn Qty: 90 RF: 4 ibuprofen 600 MG tablet 600 mg PO Q8H PRN PRN (Reason: Moderate To Severe Pain) Qty: 30 RF: 0 Discontinued furosemide 20 mg tablet See Rx Instructions PO QAM PRN (Reason: edema) Qty: 30 RF: 0 Discharge Instructions Instructions: How to Stop Smoking (DC), Hypokalemia (DC) Additional Instructions: Stop taking furosemide at least until you are seen in follow-up by Dr. Lockett. Take the potassium supplement twice a day for 1 week. He will need to have your blood rechecked in about 1 week to be sure your potassium level is back to normal. Call the [facility] medical office on Sunday if you do not get a call with a follow-up appointment in about 2 weeks. Stand Alone Forms: Nursing Discharge Form Referrals: Costa Lockett MD [Primary Care Provider] - Activity:: Activity as Tolerated Equipment/Supplies:: No Equipment Needed Diet:: As Tolerated Discharge Orders Discharge Orders: Discharge Order (Routine); Ordered 11/23/18 Ordered By: Osmin Matos Other Ambulatory Orders: Basic Metabolic Panel (Routine) Timeframe: 1 Week Facility: [facility] - Location: Laboratory Ordered By: Osmin Matos DS: Summary Status at Discharge Cognitive/behavioral status at discharge: Back to baseline, oriented x3. Functional status at discharge: independent ambulation Time Spent with Patient Less than 30 minutes Exam Narrative Exam Narrative: On the day of discharge he is awake alert talkative and in no distress. He has spontaneous neck rotation left and right without complaints of pain. No facial asymmetry. Speech is clear. No JVD. Lungs with distant breath sounds no crackles or wheeze. Heart tones also distant no murmur S3 or S4. Nontender abdomen. No ankle edema. He has antigravity power symmetrically in all extremities. He sits up without difficulty and walks without ataxia or complaints of lightheadedness. DS: Data Vitals/I&O Vitals and I&O: Vital Signs Temperature 36.9 C 11/23/18 03:05 Temperature Source Tympanic 11/23/18 03:05 Pulse 83 11/23/18 03:05 Pulse 83 11/22/18 20:10 Respiratory Rate 18 11/23/18 03:05 Respiratory Effort Non-Labored 11/22/18 20:44 Respiratory Depth Normal 11/22/18 20:44 Respiratory Pattern Normal 11/22/18 20:44 Blood Pressure 145/69 H 11/23/18 03:05 Blood Pressure Mean 74 11/22/18 19:46 Blood Pressure Position Supine 11/22/18 17:33 Pulse Oximetry 96 11/23/18 03:05 Oxygen Delivery Method Room Air 11/23/18 03:05 Oxygen Flow Rate 0 11/23/18 03:05 Pain Level 3 11/22/18 20:15 Intake & Output 11/22/18 11/22/18 11/23/18 11:59 23:59 11:59 Intake Total 252.5 / 252.5 Output Total 500 / 500 200 / 200 Balance -247.5 / -247.5 -200 / -200 Weight 60.6 kg 60.4 kg Intake: IV 252.5 / 252.5 Output: Urine 500 / 500 200 / 200 Other: Urine Color Yellow Yellow Urine Appearance Clear Clear Urine Odor Normal Voiding Methods Toilet Urinal Urinal Labs on day of discharge: Labs from last 24 hours 11/23/18 11/23/18 11/23/18 06:25 06:25 06:25 WBC 3.36 L D RBC 3.67 L Hgb 13.0 L Hct 36.6 L MCV 99.7 H MCH 35.4 H MCHC 35.5 RDW 12.5 Plt Count 139 MPV 10.7 Immature Gran % Neutrophils % Lymphocytes % Monocytes % Eosinophils % Basophils % Absolute Neutrophils Absolute Lymphocytes Absolute Monocytes Absolute Eosinophils Absolute Basophils Sodium 137 Potassium 3.3 L D Chloride 98 Carbon Dioxide 31.1 Anion Gap 7.9 BUN 14 Creatinine 1.44 H Estimated GFR/1.73 m2 47.32 Glucose 85 Lactate Calcium 8.3 L Magnesium 2.0 Total Bilirubin 0.7 AST 23 ALT 14 Alkaline Phosphatase 47 Troponin I 0.02 Total Protein 6.6 Albumin 3.2 L TSH 1.00 Urine Color Urine Clarity Urine pH Ur Specific [place] Urine Protein Urine Ketones Urine Blood Urine Nitrite Urine Bilirubin Urine Urobilinogen Ur Leukocyte Esterase Urine Glucose Ethyl Alcohol 11/23/18 11/22/18 11/22/18 01:25 22:17 18:00 WBC RBC Hgb Hct MCV MCH MCHC RDW Plt Count MPV Immature Gran % Neutrophils % Lymphocytes % Monocytes % Eosinophils % Basophils % Absolute Neutrophils Absolute Lymphocytes Absolute Monocytes Absolute Eosinophils Absolute Basophils Sodium Potassium Chloride Carbon Dioxide Anion Gap BUN Creatinine Estimated GFR/1.73 m2 Glucose Lactate 3.0 H Calcium Magnesium Total Bilirubin AST ALT Alkaline Phosphatase Troponin I < 0.02 Total Protein Albumin TSH Urine Color Yellow Urine Clarity Clear Urine pH 5.5 Ur Specific [place] <= 1.005 Urine Protein Negative Urine Ketones Negative Urine Blood Negative Urine Nitrite Negative Urine Bilirubin Negative Urine Urobilinogen 0.2 Ur Leukocyte Esterase Negative Urine Glucose Negative Ethyl Alcohol 11/22/18 11/22/18 11/22/18 17:48 17:48 17:48 WBC 6.02 RBC 3.80 L Hgb 13.9 Hct 37.7 L MCV 99.2 H MCH 36.6 H MCHC 36.9 H RDW 12.5 Plt Count 152 MPV 10.6 Immature Gran % 0.2 Neutrophils % 63.9 Lymphocytes % 23.3 Monocytes % 10.5 Eosinophils % 1.8 Basophils % 0.3 Absolute Neutrophils 3.85 Absolute Lymphocytes 1.40 Absolute Monocytes 0.63 Absolute Eosinophils 0.11 Absolute Basophils 0.02 Sodium 132 L Potassium 2.3 L* Chloride 92 L Carbon Dioxide 30.9 Anion Gap 9.1 BUN 15 Creatinine 1.79 H Estimated GFR/1.73 m2 36.82 Glucose 99 Lactate Calcium 8.5 Magnesium 1.7 L Total Bilirubin 0.5 AST 25 ALT 18 Alkaline Phosphatase 48 Troponin I < 0.02 Total Protein 6.9 Albumin 3.4 TSH Urine Color Urine Clarity Urine pH Ur Specific [place] Urine Protein Urine Ketones Urine Blood Urine Nitrite Urine Bilirubin Urine Urobilinogen Ur Leukocyte Esterase Urine Glucose Ethyl Alcohol 136.6 11/22/18 22:17 Blood Blood Culture - Pending 11/22/18 22:05 Blood Blood Culture - Pending Preliminary micro results at discharge 11/22/18 22:17 Blood Culture - Pending Blood 11/22/18 22:05 Blood Culture - Pending Blood [facility] Medical History BPH (benign prostatic hyperplasia) (Chronic) HTN (hypertension) (Chronic) Surgical History History of cataract surgery (Chronic) Colonoscopy - [facility] Social History Smoking and Tabacco status: Current every day alcohol intake: current alcohol intake frequency: 3 or more drinks per day substance use type: does not use
--- NOTE | 2018-11-23 11:02 | CMPROGNOTE_ITS ---
Care Management Progress Note Dave was admitted observation overnight with IV hydration and IV potassium with plan for oral potassium to be continued in the morning with follow-up labs. Once stable he will be discharged home for continued medical follow-up with his PCP. Patient admitted with transient altered mental status, hypotension and hypokalemia all of which improved with IV hydration, oral supplementation of potassium and time. He is a current everyday smoker 1.5/ppd. PMH significant for COPD, GERD, benign prostate hyperplasia, hypertension, PVD, urgency of urination, hx of colonoscopy and cataract surgery. He resides with his significant other, Sheyla in [place], [place]. She will transport him home upon discharge.
== END 2018-11-23 13:06 | disposition home or self-care (01) ==
LOC: ER 20:13 → MS 11-23 11:04
PROVIDERS: Admitting Provider Family Medicine; Emergency Provider Physician Assistant; PCP Family Medicine; Visit Provider Internal Medicine
DX: R41.82 Altered mental status, unspecified (principal); I95.9 Hypotension, unspecified; E87.6 Hypokalemia; E86.0 Dehydration; M54.2 Cervicalgia; I10 Essential (primary) hypertension; Z72.89 Other problems related to lifestyle; F17.210 Nicotine dependence, cigarettes, uncomplicated
CPT/HCPCS: 36410; 36415; 70496; 70498; 80053; 85027; 87040; 93005; 96361; 96365; 99219; 99238; 99285; 70450; 71046; 80320; 81003; 83605; 83735; 84443; 84484; 85025; 93010; G0378; J1644; J3475; J3480; J3490

== ENCOUNTER 2018-12-10 10:30 | Outpatient (CLI) | payer MEDICARE, SELFPAY ==
[2018-12-10 13:14] LABS: Anion Gap 7.8 mmol/L (3-11); BUN 14 mg/dL (7-18); CO2 30.2 mmol/L (21.0-32.0); Calcium 8.8 mg/dL (8.5-10.1); Chloride 99 mmol/L (98-107); Estimated GFR 58.26 (mL/min/1.73m2); Glucose 98 mg/dL (70-100); Potassium 4.3 mmol/L (3.5-5.1); Sodium 137 mmol/L (136-145)
== END 2018-12-10 10:50 ==
PROVIDERS: PCP Family Medicine; Visit Provider Family Medicine
DX: E87.6 Hypokalemia (principal)
CPT/HCPCS: 36415; 80048

== ENCOUNTER 2019-04-18 12:20 | Outpatient (CLI) | payer MEDICARE, SELFPAY ==
[2019-04-18 13:22] LABS: CREATININE 1.26 mg/dL (0.70-1.30); Estimated GFR 55.07 (mL/min/1.73m2)
== END 2019-04-18 12:40 ==
PROVIDERS: PCP Family Medicine; Visit Provider Otolaryngology
DX: Z01.812 Encounter for preprocedural laboratory examination (principal); R69 Illness, unspecified
CPT/HCPCS: 36415; 82565

== ENCOUNTER 2019-04-21 00:34 | Outpatient (CLI) | payer MEDICARE, SELFPAY ==
--- NOTE | 2019-04-21 10:00 | DI.CT_ITS ---
SYMPTOM/DIAGNOSIS: VOCAL CORD MASS, J38.[address]: A post contrast exam was performed. The exam is limited by patient motion. There is slight fullness of the right vocal cord compared to the left. No adenopathy is seen. The parotid and thyroid glands are unremarkable. The submandibular glands are somewhat obscured by motion. No vascular occlusion or significant stenosis is seen. Degenerative changes are seen in the spine. IMPRESSION: Limited exam due to patient motion. There is slight asymmetry of the vocal cords, with slight prominence on the right side which presumably represents the previously identified vocal cord mass.
[2019-04-21] MEDS: Omnipaque 350 MG/ML 100 ML BTL IJ (10:02)
== END 2019-04-21 00:54 ==
PROVIDERS: PCP Family Medicine; Visit Provider Otolaryngology
DX: J38.3 Other diseases of vocal cords (principal)
CPT/HCPCS: 70491; J3490

== ENCOUNTER 2019-04-26 08:49 | Emergency (ER) | payer MEDICARE, SELFPAY ==
[2019-04-26 08:58] VITALS: BP 102/75; PULSE 106; RESP 16; TEMP 36.5; O2SAT 95
--- NOTE | 2019-04-26 09:01 | W.ED.GENAD ---
Discharge Plan Disposition Patient Disposition: HOME Condition: Stable Discharge Details Chief Complaint: GenMedical Clinical Impression: Vocal cord mass Primary Care Provider: Costa Lockett ED Provider: Maxwell Hernandez Home Meds and New Rx's Prescriptions: New tramadol 50 mg tablet 50 mg PO Q8H PRN (Reason: pain) Qty: 20 RF: 0 No Action lisinopril 20 mg tablet 20 mg PO DAILY Qty: 90 RF: 4 tamsulosin [Flomax] 0.4 mg capsule 0.4 mg PO DAILY Qty: 90 RF: 4 trazodone 50 mg tablet 50 mg PO hs prn Qty: 90 RF: 4 furosemide 20 mg tablet 20 mg PO DAILY Qty: 90 RF: 4 lidocaine HCl [Lidocaine Viscous] 2 % solution 15 ml MM BID-QID PRN (Reason: mouth pain) Qty: 15 RF: 2 Discharge Instructions Additional Instructions: follow up as scheduled with your primary care provider on Sunday for continued prescribing of pain medications it is also important you follow up with the ears, nose and throat as you are planning on doing you can take 1000mg tylenol and 600mg ibuprofen every 6 hours for pain as needed if you have inability to swallow liquids or difficulty breathing return to the emergency department for evaluation Medical Decision Making 78 yo male comes in with months of neck/throat pain. 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 He used to have tramadol for his pain but has none so cam e here for pain. He denies any dyspnea or difficulty swallowing and n ofevers. Has no pain over hyoid, no restricted neck movements, normal oropharynx and midline uvula. He has no findings to suggest rpa, banquet captain, epigltoitis. He has no drooling and is swallowing and breathing without problems. I sspect his pain is due to his known mass and has no evidence of airway comprosmise so do not feel emergent workup inidcated and had a ct done this past week. Will prescribe tramadol and has an appt Sunday with pcp and will also f/u with ent, return precautions given Differential Diagnosis djd, neck mass HPI General Mode of arrival: ambulatory. Date/Time Provider Initiated Documentation: 04/26/19 08:52. Limitations to Documentation: no limitations. Information obtained by: patient. History of Present Illness 78 year old M presents to the emergency department with the chief complaint of neck pain, described as moderate, Quality is described as aching, and is localized to the neck. Patient reports no radiation. Patient started experiencing this month(s) (5) and it has been constant. No relieving factors improve symptom(s), No exacerbating factors reported . Related Data Home Medications Medication Instructions Recorded Confirmed lisinopril 20 mg tablet 20 mg PO DAILY #90 tab-cap 11/21/18 04/26/19 tamsulosin 0.4 mg capsule 0.4 mg PO DAILY #90 cap 11/21/18 04/26/19 trazodone 50 mg tablet 50 mg PO hs prn #90 tab-cap 11/21/18 04/26/19 furosemide 20 mg tablet 20 mg PO DAILY #90 tab 12/24/18 04/26/19 lidocaine HCl 2 % mucosal solution 15 ml MM BID-QID PRN #15 ml 03/28/19 04/26/19 tramadol 50 mg PO Q8H PRN #20 tab 04/26/19 Previous Rx's Medication Instructions Recorded lisinopril 20 mg tablet 20 mg PO DAILY #90 tab-cap 11/21/18 tamsulosin 0.4 mg capsule 0.4 mg PO DAILY #90 cap 11/21/18 trazodone 50 mg tablet 50 mg PO hs prn #90 tab-cap 11/21/18 furosemide 20 mg tablet 20 mg PO DAILY #90 tab 12/24/18 lidocaine HCl 2 % mucosal solution 15 ml MM BID-QID PRN #15 ml 03/28/19 tramadol 50 mg PO Q8H PRN #20 tab 04/26/19 Allergies Allergy/AdvReac Type Severity Reaction Status Date / Time hydrochlorothiazide AdvReac Severe URINARY Verified 03/28/19 12:47 FREQ General JULIENNE: 3 Review of Systems Review of Systems All systems reviewed & are unremarkable except as noted in HPI and below Constitutional Denies chills, Denies fever(s) and Denies weakness Cardiovascular Denies chest pain and Denies dyspnea Respiratory Denies cough and Denies dyspnea Gastrointestinal Denies abdominal pain, Denies nausea and Denies vomiting Integumentary/Breasts Denies rash Neurologic Denies weakness PFSH Social History (Updated 11/25/18 @ 11:25 by Bhupinder Khan) Smoking/Tobacco Use Status: Current every day Tobacco Type: cigarettes Quit status: not considering quitting Alcohol Intake: current Alcohol Intake frequency: 0-2 drinks per day Alcohol type: beer Drug use: Never Substance use type: does not use Details: 2 beers a day. Caregiver/Support person: Yes Household members: spouse and significant other Pets and animals: No Sexually active: No Do you think of yourself as: straight/heterosexual Current gender identity: decline to answer What is your relationship status?: living with partner How often do you talk on the phone with friends or family?: decline to answer How often do you get together with friends or relatives?: decline to answer How often do you attend methodist or mormonism services?: decline to answer Do you belong to any clubs or organized social groups?: decline to answer Panel score (0-1 are the most socially isolated patients): 1 What type of physical activity do you participate in: walking Frequency: daily Tiffany/Judaism: None Agree to transfusion: No Do you feel safe in your relationship?: Yes Exam Const General: no acute distress Orientation: alert HENMT Head: normal to inspection Ears: external ears normal General nose exam: external nose normal Mouth: moist mucous membranes Eyes General: appearance normal, both eyes and all related structures Neck Neck: normal visual inspection Resp Effort & Inspection: normal respiratory effort and able to speak in complete sentences Cardio Rate: regular rate Skin General skin exam: no rashes or lesions noted Neuro General: alert and oriented x3 Extrem General: normal to inspection Psych Mental Status: mental status grossly normal
[2019-04-26] MEDS: traMADol 50 MG TAB PO (09:05)
[2019-04-26 09:18] VITALS: RESP 16
== END 2019-04-26 09:17 | disposition home or self-care (01) ==
LOC: ER 09:05
PROVIDERS: Emergency Provider Emergency Medicine; PCP Family Medicine
DX: M54.2 Cervicalgia (principal); J38.2 Nodules of vocal cords; F17.210 Nicotine dependence, cigarettes, uncomplicated
CPT/HCPCS: 99283

== ENCOUNTER 2019-05-29 10:07 | Outpatient (CLI) | payer MEDICARE, SELFPAY ==
[2019-05-29 13:30] LABS: Anion Gap 7.4 mmol/L (3-11); BUN 14 mg/dL (7-18); CO2 29.6 mmol/L (21.0-32.0); CREATININE 1.18 mg/dL (0.70-1.30); Calcium 8.4 mg/dL (8.5-10.1); Chloride 97 mmol/L (98-107); Glucose 100 mg/dL (70-100); Potassium 3.9 mmol/L (3.5-5.1); Sodium 134 mmol/L (136-145)
== END 2019-05-29 10:27 ==
PROVIDERS: PCP Family Medicine; Visit Provider Nurse Practitioner
DX: I10 Essential (primary) hypertension (principal)
CPT/HCPCS: 36415; 80048

== ENCOUNTER 2019-07-08 08:56 | Outpatient (CLI) | payer MEDICARE, SELFPAY ==
[2019-07-08 10:39] LABS: CREATININE 1.18 mg/dL (0.70-1.30)
== END 2019-07-08 09:16 ==
PROVIDERS: PCP Family Medicine; Visit Provider Preventive Medicine Undersea and Hyperbaric Medicine
DX: C32.9 Malignant neoplasm of larynx, unspecified (principal)
CPT/HCPCS: 36415; 82565

== ENCOUNTER 2019-09-19 09:51 | Emergency (ER) | payer MEDICARE, SELFPAY ==
[2019-09-19 09:54] VITALS: BP 138/84; PULSE 112; RESP 22; TEMP 36.6; O2SAT 100
--- NOTE | 2019-09-19 10:09 | ED.GENADUL_ITS ---
Discharge Plan Disposition Patient Disposition: HOME Condition: Good Discharge Details Chief Complaint: Nausea/Vomit/Diar Clinical Impression: Diarrhea, Dehydration Primary Care Provider: Costa Lockett ED Provider: Yenni Johnson Home Meds and New Rx's Prescriptions: Continued lisinopril 20 mg tablet 20 mg PO DAILY Qty: 90 RF: 4 tamsulosin [Flomax] 0.4 mg capsule 0.4 mg PO DAILY Qty: 90 RF: 4 trazodone 50 mg tablet 50 mg PO hs prn Qty: 90 RF: 4 furosemide 20 mg tablet 20 mg PO DAILY Qty: 90 RF: 4 Lidocaine Viscous 2 % solution 15 ml MM BID-QID PRN (Reason: mouth pain) Qty: 15 RF: 2 tramadol 50 mg tablet 50 mg PO Q8H PRN (Reason: pain) Qty: 20 RF: 0 oxycodone 5 mg Tablet 5 mg PO QID PRNRF: 0 Discharge Instructions Instructions: Dehydration (ED), Acute Diarrhea (ED) Additional Instructions: Drink plenty of fluids and get plenty of rest. Follow up with your primary care doctor within the next week for re-evaluation. Return to the emergency department with any worsening or new concerning symptoms. Discharge Data Discharge Physician: Yenni Johnson Medical Decision Making 1005 -- 78-year-old male with a history of vocal cord mass who recently finished 30+ radiation treatment after surgical removal of this mass presents with watery brown diarrhea for the past 3 days. He was going daily to [facility] for his radiation treatments and denies any recent hospitalization in the last 3 months. He denies fever, nausea, vomiting, abdominal pain or urinary symptoms. He denies any recent antibiotics or recent travel or known sick contacts. Patient states he has had a poor appetite for several months and mainly drinks Ensure for nutrition. He states he drinks no water throughout the day. Heart rate 110s. Normal BP. Afebrile. Patient appears nontoxic but generally fatigued. Will give fluids, check screening labs and urinalysis and attempt to send stool for culture. Do not see an indication for CT imaging at this time as patient has no fever vomiting or abdominal pain. 1120 --labs reviewed and unremarkable. Potassium 3.2 which was repleted. Patient declines food to eat at this time. He has not yet given a urine sample. Will give another liter fluids and reassess. 1300 --urine notes ketones but no evidence of infection. Patient is requesting to go home. He states he feels much better and would like to go home at this time. He was advised to increase fluids and attempt better nutrition along with his Ensure drinks as there were ketones in the urine. He is advised to follow-up with his primary care doctor for evaluation and to return here with any concerns. Medical Records Medical records reviewed: Yes I reviewed the patient's medical records. Lab Data Lab results reviewed: Yes I reviewed the patient's lab results. Labs: 09/19/19 11:10 Stool Clostridioides difficile Screen - Final Laboratory Tests Range/Units 09/19/19 09/19/19 09/19/19 10:15 10:15 12:57 WBC (4.4-10.8) k/cumm 5.20 RBC (4.50-6.00) m/cumm 4.04 L Hgb (13.5-17.5) g/dL 13.6 Hct (40.0-50.0) % 39.7 L MCV (80-95) fL 98.3 H MCH (27.0-33.0) pg 33.7 H MCHC (32.0-36.0) g/dL 34.3 RDW (11.8-14.1) % 11.7 L Plt Count (130-400) x1000/uL 331 MPV (8.0-11.0) fL 9.5 Immature Gran % % 0.2 Neutrophils % 62.9 Lymphocytes % 25.0 Monocytes % 10.0 Eosinophils % 1.5 Basophils % 0.4 Absolute Neutrophils (1.2-6.7) k/cumm 3.27 Absolute Lymphocytes (1.2-3.4) k/cumm 1.30 Absolute Monocytes (0.11-0.7) k/cumm 0.52 Absolute Eosinophils (0.0-0.7) k/cumm 0.08 Absolute Basophils (0.0-0.2) k/cumm 0.02 Sodium (136-145) mmol/L 136 Potassium (3.5-5.1) mmol/L 3.2 L Chloride (98-107) mmol/L 100 Carbon Dioxide (21.0-32.0) mmol/L 25.4 Anion Gap (3-11) mmol/L 10.6 BUN (7-18) mg/dL 15 Creatinine (0.70-1.30) mg/dL 0.93 Estimated GFR/1.73 m2 (mL/min/1.73m2) >= 60.00 Glucose (74-106) mg/dL 106 Calcium (8.5-10.1) mg/dL 8.7 Total Bilirubin (0.2-1.0) mg/dL 0.7 AST (15-37) U/L 29 ALT (16-63) U/L 22 Alkaline Phosphatase (46-116) U/L 131 H Total Protein (6.4-8.2) g/dL 7.8 Albumin (3.4-5.0) g/dL 3.2 L Urine Color (Yellow) Yellow Urine Clarity (Clear) Clear Urine pH (5-8) 6.5 Ur Specific [place] (1.005-1.025) 1.020 Urine Protein (Negative) mg/dL Negative Urine Ketones (Negative) mg/dL 40 H Urine Blood (Negative) Negative Urine Nitrite (Negative) Negative Urine Bilirubin (Negative) Small H Urine Urobilinogen (Up TO 0.2) EU/dL 2.0 H Ur Leukocyte Esterase (Negative) Negative Urine Glucose (Negative) mg/dL Negative HPI General Mode of arrival: ambulatory . Date/Time Provider Initiated Documentation: 09/19/19 10:00 . Limitations to Documentation: no limitations . Information obtained by: patient . History of Present Illness 78 year old M presents to the emergency department with the chief complaint of diarrhea, Patient started experiencing this day(s) (3) and it has been constant. No relieving factors improve symptom(s), No exacerbating factors reported . Patient notes loss of appetite and malaise; denies fever/chills, nausea/vomiting, rash, seizure, shortness of breath, syncope and weakness. Patient did receive the following treatments prior to arrival, none Related Data Home Medications Medication Instructions Recorded Confirmed lisinopril 20 mg tablet 20 mg PO DAILY #90 tab-cap 11/21/18 09/19/19 tamsulosin 0.4 mg capsule 0.4 mg PO DAILY #90 cap 11/21/18 09/19/19 trazodone 50 mg tablet 50 mg PO hs prn #90 tab-cap 11/21/18 09/19/19 furosemide 20 mg tablet 20 mg PO DAILY #90 tab 12/24/18 09/19/19 lidocaine HCl 2 % mucosal solution 15 ml MM BID-QID PRN #15 ml 03/28/19 09/19/19 tramadol 50 mg PO Q8H PRN #20 tab 04/26/19 09/19/19 oxycodone 5 mg PO QID PRN 09/19/19 09/19/19 Previous Rx's Medication Instructions Recorded lisinopril 20 mg tablet 20 mg PO DAILY #90 tab-cap 11/21/18 tamsulosin 0.4 mg capsule 0.4 mg PO DAILY #90 cap 11/21/18 trazodone 50 mg tablet 50 mg PO hs prn #90 tab-cap 11/21/18 furosemide 20 mg tablet 20 mg PO DAILY #90 tab 12/24/18 lidocaine HCl 2 % mucosal solution 15 ml MM BID-QID PRN #15 ml 03/28/19 tramadol 50 mg PO Q8H PRN #20 tab 04/26/19 Allergies Allergy/AdvReac Type Severity Reaction Status Date / Time hydrochlorothiazide AdvReac Severe URINARY Verified 05/29/19 09:43 FREQ General Stated Complaint: Nausea/Vomit/Diar JULIENNE: 3 Review of Systems All systems reviewed & are unremarkable except as noted in HPI and below Constitutional Constitutional: Reports as per HPI, Denies chills and Denies fever(s) Eyes Eyes: Denies blurry vision ENT Ears, Nose, Mouth, and Throat: Denies dizziness, Denies sore throat and Denies throat swelling Cardiovascular Cardiovascular: Denies chest pain and Denies dyspnea Respiratory Respiratory: Denies cough and Denies dyspnea Gastrointestinal Gastrointestinal: Denies abdominal pain, Reports diarrhea and Denies vomiting Genitourinary Genitourinary: Denies hematuria and Denies dysuria Musculoskeletal Musculoskeletal: Denies back pain and Denies numbness Integumentary/Breasts Skin/Breast: Denies lesions and Denies rash Neurologic Neurologic: Denies dizziness, Denies focal weakness and Denies numbness Allergic/Immunologic Allergic/Immunologic: Denies throat swelling [facility] Medical History BPH (benign prostatic hyperplasia) (Chronic) HTN (hypertension) (Chronic) Surgical History Colonoscopy - MAC 2002 2012 N/L History of cataract surgery (Chronic) Family History Mother Stroke Father , 71 Leukemia Sister No problems noted. Social History Smoking/Tobacco Use Status: Current every day Tobacco Type: cigarettes Quit status: not considering quitting Alcohol Intake: current Alcohol Intake frequency: 0-2 drinks per day Alcohol type: beer Drug use: Never Substance use type: does not use Details: 2 beers a day. Caregiver/Support person: Yes Household members: spouse and significant other Pets and animals: No Sexually active: No Do you think of yourself as: straight/heterosexual Current gender identity: decline to answer What is your relationship status?: living with partner How often do you talk on the phone with friends or family?: decline to answer How often do you get together with friends or relatives?: decline to answer How often do you attend worship or worship services?: decline to answer Do you belong to any clubs or organized social groups?: decline to answer Panel score (0-1 are the most socially isolated patients): 1 What type of physical activity do you participate in: walking Frequency: daily Tiffany/Congregation: None Agree to transfusion: No Do you feel safe at home: Yes Do you feel safe in your relationship?: Yes Exam Const General: cooperative, no acute distress, frail appearing and ill appearing chr onically Orientation: alert, awake and oriented x3 HENMT Head: normal to inspection Face and sinus: normal facial exam Eyes General: appearance normal, both eyes and all related structures EOM: EOM intact bilaterally Neck Neck: normal visual inspection and No submandibular swelling Lymphatic: no lymphadenopathy noted Chest Chest: normal inspection of the chest and no tenderness Resp Effort & Inspection: normal respiratory effort and able to speak in complete sentences Auscultation: clear to auscultation bilaterally Cardio Rate: regular rate Rhythm: regular rhythm GI Inspection: normal to inspection Palpation: soft, not firm, not rigid and nontender Auscultation: normal bowel sounds Male General Exam: Yes normal external exam Penis: normal penis Meatus: meatus normal Scrotum: scrotum normal Testes: normal, no testicular mass, no testicular swelling and no testicular tenderness Skin General skin exam: no rashes or lesions noted Neuro General: alert, awake and oriented x3 Cognition: normal cognition Speech: speech normal Motor: muscle tone normal throughout Sensory Exam: no sensory deficits noted Extrem General: normal to inspection, full ROM, normal capillary refill, no calf tenderness bilaterally and no edema Psych Appearance: grossly normal Mental Status: mental status grossly normal Speech and Movement: speech and movement normal Affect: normal affect Course Vital Signs Vital signs: Vital Signs Temperature 97.9 F 09/19/19 09:54 Pulse 112 H 09/19/19 09:54 Respiratory Rate 22 09/19/19 09:54 Blood Pressure 138/84 09/19/19 09:54 Pulse Oximetry 100 09/19/19 09:54 Temperature 97.9 F 09/19/19 09:54 Temperature Source Skin 09/19/19 09:54 Pulse 112 H 09/19/19 09:54 Respiratory Rate 22 09/19/19 09:54 Blood Pressure 138/84 09/19/19 09:54 Blood Pressure Position Sitting 09/19/19 09:54 Pulse Oximetry 100 09/19/19 09:54 Oxygen Delivery Method Room Air 09/19/19 09:54 Oxygen Flow Rate 0 09/19/19 09:54 Pain Level 5 09/19/19 09:54
[2019-09-19] MEDS: Normal Saline Flush 10 ML SYR IVP (10:15)
[2019-09-19] MEDS: Normal Saline 1,000 ML 1000 ML IV ×2 (10:20→11:27)
[2019-09-19 10:27] LABS: Abs Immature Grans 0.01 k/cumm (0.0-0.09); Absolute Basophil Count 0.02 k/cumm (0.0-0.2); Absolute Eosinophil Count 0.08 k/cumm (0.0-0.7); Absolute Monocyte Count 0.52 k/cumm (0.11-0.7); Absolute Neutrophil Count 3.27 k/cumm (1.2-6.7); Basophils % 0.4; Eosinophils % 1.5; HCT 39.7 % (40.0-50.0); HGB 13.6 g/dL (13.5-17.5); Immature Grans % 0.2 %; Mean Corp. HGB Concentration 34.3 g/dL (32.0-36.0); Mean Corpuscular Hemoglobin 33.7 pg (27.0-33.0); Mean Corpuscular Volume 98.3 fL (80-95); Mean Platelet Volume 9.5 fL (8.0-11.0); Neutrophils % 62.9; Platelet Count 331 x1000/uL (130-400); RBC 4.04 m/cumm (4.50-6.00); RBC Distribution Width 11.7 % (11.8-14.1)
[2019-09-19 10:39] LABS: ALT 22 U/L (16-63); AST 29 U/L (15-37); Albumin 3.2 g/dL (3.4-5.0); Alkaline Phosphatase 131 U/L (46-116); Anion Gap 10.6 mmol/L (3-11); BUN 15 mg/dL (7-18); Bilirubin, Total 0.7 mg/dL (0.2-1.0); CO2 25.4 mmol/L (21.0-32.0); CREATININE 0.93 mg/dL (0.70-1.30); Calcium 8.7 mg/dL (8.5-10.1); Chloride 100 mmol/L (98-107); Glucose 106 mg/dL (74-106); Potassium 3.2 mmol/L (3.5-5.1); Sodium 136 mmol/L (136-145); Total Protein 7.8 g/dL (6.4-8.2)
[2019-09-19] MEDS: Potassium Chloride 20 MEQ TABCR 40 MEQ PO (11:20)
[2019-09-19 12:07] VITALS: BP 134/76; PULSE 80; RESP 16; TEMP 36.6; O2SAT 99
[2019-09-19 13:05] LABS: Bilirubin Small (Negative); Blood Negative (Negative); Clarity Clear (Clear); Glucose Negative (Negative); Ketones 40 mg/dL (Negative); Leukocyte Esterase Negative (Negative); Nitrite Negative (Negative); pH 6.5 (5-8)
[2019-09-19 13:29] VITALS: BP 136/53; PULSE 71; RESP 16; TEMP 36.6; O2SAT 99
[2019-09-24 17:12] LABS: Campylobacter PCR Negative (Negative); Salmonella PCR Negative (Negative); Shiga Toxin PCR Negative (Negative); Shigella/Enteroinvasive Ecoli Negative (Negative)
== END 2019-09-19 14:08 | disposition home or self-care (01) ==
PROVIDERS: Emergency Provider Physician Assistant; PCP Family Medicine
DX: R19.7 Diarrhea, unspecified (principal); E86.0 Dehydration; E87.6 Hypokalemia; I10 Essential (primary) hypertension; F17.210 Nicotine dependence, cigarettes, uncomplicated
CPT/HCPCS: 36415; 80053; 87505; 96360; 96361; 99284; 81003; 85025; 87324

== ENCOUNTER 2020-10-04 00:49 | Outpatient (CLI) | payer MEDICARE, SELFPAY ==
--- NOTE | 2020-10-04 | DI.CT_ITS ---
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 TECHNIQUE: Imaging Protocol: Axial computed tomography images with coronal and sagittal reformatted images were created and reviewed. CONTRAST MATERIAL: Intravenous: Omnipaque 350 Contrast volume:100 mL COMPARISON: CT,PT PET/CT EYE TO THIGH from 07/04/[address] RAD ONC NEURO INTER from 07/09/[address] NECK SOFT TISSUE W CONTRAST (GENERIC) from 03/22/2020 FINDINGS: The vocal cords are apposed. No definite evidence of a recurrent or residual mass is seen. No signi ficant cervical adenopathy is present. No suspicious cystic or solid masses are seen in the neck. T he parotid, submandibular and thyroid glands are unremarkable. There is mild mucosal thickening in t he maxillary sinuses bilaterally. There is opacification of a few ethmoid air cells. The mastoid ai r cells are clear. Degenerative changes are seen in the spine. Degenerative facet arthropathy is se en particularly on the right. No suspicious lytic or sclerotic lesions are identified. Centrilobula r emphysematous changes are seen in the lung apices no pulmonary nodules are identified IMPRESSION: No definite evidence of residual or recurrent tumor involving the right true vocal cord. No evidence of cervical adenopathy or metastatic disease. RADIATION DOSE DELIVERED: 367.76mGy.cm Total DLP 367.76mGy.cm Total DLP DATA REPOSITORY: All CT scans at this facility are submitted to the National Radiology Data Registry (NRDR) Dose Index Registry (DIR) with the [employer] (ACR). RADIATION OPTIMIZATION: All CT scans at this facility use at least one of these dose optimization te chniques: automated exposure control; mA and/or kV adjustment per patient size (includes targeted exa ms where dose is matched to clinical indication); or iterative reconstruction.
[2020-10-04 13:22] LABS: CREATININE 0.92 mg/dL (0.70-1.30)
[2020-10-04] MEDS: Omnipaque 350 MG/ML 100 ML BTL IV (13:49)
[2020-10-04] MEDS: Normal Saline - Diluent 50 ML VIAL IV (14:00)
== END 2020-10-04 01:09 ==
PROVIDERS: PCP Nurse Practitioner; Visit Provider Preventive Medicine Undersea and Hyperbaric Medicine
DX: C32.0 Malignant neoplasm of glottis (principal)
CPT/HCPCS: 70491; 82565; J3490

== ENCOUNTER 2020-12-24 01:31 | Outpatient (RCR) | payer MEDICARE, SELFPAY | END 2021-01-14 23:59 | disposition home or self-care (01) | LOC: RT 01:31 | PROVIDERS: PCP Nurse Practitioner; Visit Provider Nurse Practitioner | DX: Z53.9 Procedure and treatment not carried out, unspecified reason (principal) | CPT/HCPCS: 93225 ==

== ENCOUNTER 2021-01-27 02:14 | Outpatient (CLI) | payer MEDICARE, SELFPAY ==
[2021-01-27 09:59] LABS: ALT 42 U/L (16-63); AST 54 U/L (15-37); Albumin 3.6 g/dL (3.4-5.0); Alkaline Phosphatase 84 U/L (46-116); Anion Gap 8.6 mmol/L (3-11); BUN 6 mg/dL (7-18); Bilirubin, Total 0.5 mg/dL (0.2-1.0); CO2 29.4 mmol/L (21.0-32.0); CREATININE 0.9 mg/dL (0.70-1.30); Calcium 8.9 mg/dL (8.5-10.1); Chloride 101 mmol/L (98-107); GGT 88 U/L (15-85); Glucose 93 mg/dL (74-106); Potassium 4.2 mmol/L (3.5-5.1); Sodium 139 mmol/L (136-145); TSH (W/Ref FT4) 0.91 uIU/mL (0.36-3.74); Total Protein 7.8 g/dL (6.4-8.2)
[2021-01-27 10:13] LABS: PHOSPHORUS 4.2 mg/dL (2.6-4.7)
[2021-01-28 09:55] LABS: Parathyroid Hormone,Intact 42 pg/mL (19-88)
[2021-02-02 11:27] LABS: 1,25-Dihydroxyvitamin D 37 pg/mL (18-64)
== END 2021-01-27 02:15 | disposition home or self-care (01) ==
PROVIDERS: PCP Nurse Practitioner; Visit Provider Nurse Practitioner
DX: I10 Essential (primary) hypertension (principal); C32.0 Malignant neoplasm of glottis; E55.9 Vitamin D deficiency, unspecified; R74.8 Abnormal levels of other serum enzymes; R60.0 Localized edema
CPT/HCPCS: 36415; 80053; 82652; 82977; 83970; 84100; 84443

== ENCOUNTER 2021-03-25 09:53 | Outpatient (CLI) | payer MEDICARE, SELFPAY ==
--- NOTE | 2021-03-25 09:45 | DI.RAD_ITS ---
Exam(s) XR ABDOMEN FLAT UPRIGHT EXAM: 2D digital imaging was performed. CLINICAL HISTORY: as below R63.4 WEIGHT LOSS R74.8 ABNL LEVELS R10.9 ABD PAIN R19.7 DIARRHEA. COMPARISON: CR XR CHEST 2V PA LATERAL from 11/22/2018 CR XR CHEST 2V PA LATERAL from 11/22/2018 TECHNIQUE: Supine and uprightSupine and Lateral views of the abdomen was performed. FINDINGS: BOWEL GAS PATTERN: Nondistended.No free air. CALCIFICATIONS: No urinary tract calcifications. Vascular calcifications. OSSEOUS STRUCTURES: degenerative changes and scoliosis. OTHER FINDINGS: Lung bases show hyperinflation and flattening of the diaphragms.. Heart size normal. IMPRESSION: 1. Nonobstructive bowel gas pattern. DATA REPOSITORY: RADIATION DOSE DELIVERED:
== END 2021-03-25 10:13 ==
PROVIDERS: PCP Nurse Practitioner; Visit Provider Nurse Practitioner
DX: R10.9 Unspecified abdominal pain (principal); R19.7 Diarrhea, unspecified; R63.4 Abnormal weight loss; R74.8 Abnormal levels of other serum enzymes
CPT/HCPCS: 74019

== ENCOUNTER 2021-04-01 16:53 | Outpatient (REF) | payer MEDICARE, SELFPAY ==
[2021-04-01 21:03] LABS: C Diff PCR Negative (Negative)
[2021-04-03 11:06] LABS: Campylobacter PCR Negative (Negative); Salmonella PCR Negative (Negative); Shiga Toxin PCR Negative (Negative); Shigella/Enteroinvasive Ecoli Negative (Negative)
== END 2021-04-01 16:54 | disposition home or self-care (01) ==
LOC: LBN 16:53
PROVIDERS: PCP Nurse Practitioner; Visit Provider Nurse Practitioner
DX: R63.4 Abnormal weight loss (principal); R19.7 Diarrhea, unspecified; R10.9 Unspecified abdominal pain; R74.8 Abnormal levels of other serum enzymes
CPT/HCPCS: 87493; 87505

== ENCOUNTER 2021-06-01 01:33 | Outpatient (CLI) | payer MEDICARE, SELFPAY ==
[2021-06-01] MEDS: Omnipaque 350 MG/ML 50 ML BTL IJ (09:14)
[2021-06-01] MEDS: Breeza Beverage 473 ML BTL PO (09:15)
[2021-06-01] MEDS: Omnipaque 350 MG/ML 100 ML BTL IJ (10:47)
--- NOTE | 2021-06-01 10:55 | DI.CT_ITS ---
Exam(s) CT CHEST/ABD/PEL W EXAM: CT CHEST/ABD/PEL W CLINICAL HISTORY: eval for ca, DIARRHEA, ABD PAIN, WT LOSS, TOBACCO USE, TECHNIQUE: Imaging Protocol: Axial computed tomography images with coronal and sagittal reformatted images were created and reviewed CONTRAST MATERIAL: Intravenous: Omnipaque 350 Contrast volume:structured data in ml Oral: yes / no COMPARISON: CT CT brain neck CTA from 11/22/2018 CT,PT PET/CT EYE TO THIGH from 07/04/2019 CT,PT PET/CT EYE TO THIGH from 07/04/[address] RAD ONC NEURO INTER from 07/09/[address] RAD ONC NEURO INTER from 07/09/2019 FINDINGS: CHEST: Tracheobronchial tree: Patent where visualized. Pulmonary parenchyma: No consolidation or dominant measurable mass. Moderately severe centrilobular p ulmonary emphysema is present. Visualized thyroid gland: Unremarkable. Mediastinum and Edith: No dominant adenopathy or fluid collection. Pleura: No effusion or pneumothorax. Heart: The heart is not dilated. Coronary artery calcification. No pericardial effusion. Aorta: Thoracic aorta non-dilated. Atherosclerosis. Lymph nodes: Within normal limits. Soft tissues: Unremarkable. Bones:Within normal limits for the patient's age. ABDOMEN: Liver: Normal density. No measurable mass. Portal, Superior Mesenteric, and Splenic Veins: Unremarkable. Gallbladder and Biliary Tract: No radiodense calculus or dilation. Pancreas: Normal density, no abnormal calcifications or inflammatory process. Spleen: Normal. Adrenals: No masses seen. Kidneys: Normal size, contour and axis. There is a nonobstructing 3 mm stone in the midpole of the le ft kidney. No masses seen. Abdominal Aorta: Abdominal portion non-dilated. There is atherosclerosis. There is atherosclerosis o f the proximal right common iliac artery causing 50-70 percent stenosis. 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 They all contribute to cause approximately 50 perce nt stenosis. Bowel: No obstruction or bowel wall thickening. Small hiatal hernia. The appendix measures 7 mm in d iameter. There is mild enhancement of the wall. It is fluid filled. No definite periappendiceal in flammatory changes are seen. (Series 12, images [id number].) Peritoneal Cavity: There is a small amount of perihepatic ascites. No free air. Lymph Nodes: Within normal limits. Bones: Age-appropriate degenerative changes. There is an old superior compression fracture deformity of L4. This was present on the CT PET scan from 07/04/2019. Soft Tissues: Unremarkable. PELVIS: Bladder: The urinary bladder is incompletely distended. There is diffuse thickening of the urinary b ladder which may be due to underdistention. Inflammatory process cannot be excluded. Reproductive Organs: Mildly enlarged prostate gland. Lymph Nodes: Within normal limits. Bones: Within normal limits. IMPRESSION: 1. No evidence of an abdominal or pelvic mass. 2. The appendix measures 7 mm with mild wall enhancement. No inflammatory changes to suggest acute a ppendicitis. Please correlate clinically. 3. Atherosclerosis of the abdominal aorta causing 50-70 percent stenosis of the right common iliac ar daysi and 50 percent stenosis of the proximal superior mesenteric artery. 4. Diffuse thickening of the wall of the urinary bladder. This may be due to underdistention, howeve r an inflammatory infectious process cannot be excluded. 5. Moderately severe centrilobular emphysema. RADIATION DOSE DELIVERED: 968.39mGy.cm Total DLP DATA REPOSITORY: All CT scans at this facility are submitted to the National Radiology Data Registry (NRDR) Dose Index Registry (DIR) with the [employer] (ACR). RADIATION OPTIMIZATION: All CT scans at this facility use at least one of these dose optimization te chniques: automated exposure control; mA and/or kV adjustment per patient size (includes targeted exa ms where dose is matched to clinical indication); or iterative reconstruction.
== END 2021-06-01 01:53 ==
PROVIDERS: PCP Nurse Practitioner; Visit Provider Nurse Practitioner
DX: R10.9 Unspecified abdominal pain; R19.7 Diarrhea, unspecified; R63.4 Abnormal weight loss; Z72.0 Tobacco use; I70.0 Atherosclerosis of aorta; J43.2 Centrilobular emphysema
CPT/HCPCS: 74177; 71260; 82565; J3490; Q9967

== ENCOUNTER 2021-08-28 14:28 | Inpatient (IN) | payer MEDICARE, SELFPAY ==
[2021-08-28] VITALS (34 sets, daily range): BP systolic 118–152; BP diastolic 67–106; PULSE 66–127; RESP 15–36; TEMP 35.6–36.5; O2SAT 89–99
--- NOTE | 2021-08-28 14:30 | DI.RAD_ITS ---
Exam(s) XR HIP RT COMPLETE AP PELVIS EXAM: XR HIP RT COMPLETE AP PELVIS CLINICAL HISTORY: fall/pain. TECHNIQUE: 2D digital imaging was performed of the right hip. Three images were obtained. AP pelvis and lateral right hip views were obtained. COMPARISON: No exams were available for comparison FINDINGS: BONES: There is an acute mildly impacted and angulated subcapital right femoral neck fracture. No jesse ny destructive lesion is seen. Osteopenia. JOINTS: No dislocation present. SOFT TISSUE: Atherosclerosis is present. IMPRESSION: Subcapital right femoral neck fracture. DATA REPOSITORY: RADIATION DOSE DELIVERED:
--- NOTE | 2021-08-28 14:30 | DI.CT_ITS ---
Exam(s) CT HEAD WO EXAM: CT HEAD WO CLINICAL HISTORY: fall/head injury. TECHNIQUE: Imaging Protocol: Axial computed tomography images with coronal and sagittal reformatted images were created and reviewed COMPARISON: CT CT NECK SOFT TISSUE W CONTRAST (GENERIC) from 03/22/2020 FINDINGS: The examination is limited due to patient motion artifact. Ventricles and Extra axial spaces: Normal in size and morphology for the patient's age. Hemorrhage: None. Cerebral parenchyma: No acute territorial infarct. There are areas of decreased attenuation in the w niranjan matter most consistent with chronic microvascular ischemic disease. Midline shift: None. Brainstem/Cerebellum: Normal. Calvarium: Normal. Visualized Paranasal sinuses/Mastoids: Clear. Soft Tissues: Unremarkable. IMPRESSION: 1. No acute intracranial process. 2. No skull fracture. RADIATION DOSE DELIVERED: 784.43mGy.cm Total DLP DATA REPOSITORY: All CT scans at this facility are submitted to the National Radiology Data Registry (NRDR) Dose Index Registry (DIR) with the [employer] (ACR). RADIATION OPTIMIZATION: All CT scans at this facility use at least one of these dose optimization te chniques: automated exposure control; mA and/or kV adjustment per patient size (includes targeted exa ms where dose is matched to clinical indication); or iterative reconstruction.
--- NOTE | 2021-08-28 14:30 | RT.EKG_ITS ---
APPROVED REPORT Exam: Resting ECG Reason for Exam: dizzy Patient Location: E HR:98 bpm ECG Measurements Heart Rate 98 AXIS MD 183 P 85 QRSd 77 QRS 68 QT 345 T 59 QTc 435 Conclusion Sinus rhythm...normal P axis, V-rate 60- 99 Atrial premature complex...SV complex w/ short R-R interval
--- NOTE | 2021-08-28 14:39 | DI.RAD_ITS ---
Exam(s) XR CHEST 1V IN DI DEPT EXAM: XR CHEST 1V IN DI DEPT CLINICAL HISTORY: fall/dizzy TECHNIQUE: 2D digital imaging was performed of the chest. One image was obtained. An AP view was ob tained. COMPARISON: CR XR CHEST 2V PA LATERAL from 11/22/2018 FINDINGS: MEDIASTINUM: Normal. HEART: Normal. PULMONARY VASCULATURE: Normal. LUNGS: No focal consolidation. Atelectasis in the left lung base. Underlying COPD. PLEURAL SPACE: No pleural effusion or pneumothorax. BONE:Within normal limits for the patient's age. Osteopenia. OTHER FINDINGS:Normal. IMPRESSION: No acute pulmonary findings. DATA REPOSITORY: RADIATION DOSE DELIVERED:
--- NOTE | 2021-08-28 14:41 | ED.GENADUL_ITS ---
Discharge Plan Disposition Patient Disposition: [facility] INPATIENT Condition: Stable Discharge Details Clinical Impression: Closed fracture of neck of right femur Admit Date/Time: 08/28/21 16:49 Admit Provider: Foster Calixto Attending Provider: Foster Calixto Primary Care Provider: Adina Mcallister ED Provider: Mariam Sauceda Discharge Data Discharge Date/Time-TO BE ENTERED AT DEPARTURE: 08/28/21 18:06 Medical Decision Making <CHELA Tobar - Last Filed: 08/29/21 12:08> 80-year-old gentleman presents with right hip pain status post fall after feeling slightly dizzy. Denies feeling dizzy now. Clinically he appears uncomfortable, right leg is shortened and externally rotated. Concern for fracture versus dislocation. Given his dizziness prior to the fall and striking his head will initiate cardiac work-up and obtain a CT of the head as well. Patient will be given IV fluid and 4 mg IV morphine Medical Records Medical records reviewed: Yes I reviewed the patient's medical records. Lab Data Lab results reviewed: Yes I reviewed the patient's lab results. Labs: Laboratory Tests Range/Units 08/28/21 08/28/21 08/28/21 14:45 14:45 15:00 WBC (4.4-10.8) 10^3/uL 7.37 RBC (4.36-5.78) 10^6/uL 3.74 L Hgb (13.5-17.5) g/dL 12.3 L Hct (40.0-50.0) % 36.6 L MCV (80-95) fL 97.9 H MCH (27.0-33.0) pg 32.9 MCHC (32.0-36.0) % 33.6 RDW (11.8-14.1) % 12.3 Plt Count (130-400) 10^3/uL 186 MPV (8.0-11.0) fL 10.2 Immature Gran % 0.3 Neutrophils % 76.9 Lymphocytes % 11.8 Monocytes % 8.4 Eosinophils % 2.2 Basophils % 0.4 Nucleated RBC % % 0 Absolute Neutrophils (1.2-6.7) 10^3/uL 5.67 Absolute Lymphocytes (1.2-3.4) 10^3/uL 0.87 L Absolute Monocytes (0.1-0.8) 10^3/uL 0.62 Absolute Eosinophils (0.0-0.7) 10^3/uL 0.16 Absolute Basophils (0.0-0.2) 10^3/uL 0.03 PT (9.3-11.0) sec 11.5 H INR (0.9-1.1) 1.1 APTT (21.0-27.5) sec 23.7 Sodium (136-145) mmol/L 136 Potassium (3.5-5.1) mmol/L 3.6 Chloride (98-107) mmol/L 102 Carbon Dioxide (21.0-32.0) mmol/L 29.2 Anion Gap (3-11) mmol/L 4.8 BUN (7-18) mg/dL 11 Creatinine (0.70-1.30) mg/dL 1.0 Estimated GFR/1.73 m2 (mL/min/1.73m2) >= 60.00 Glucose (74-106) mg/dL 142 H Calcium (8.5-10.1) mg/dL 8.2 L Magnesium (1.8-2.4) mg/dL 1.7 L Total Bilirubin (0.2-1.0) mg/dL 0.5 AST (15-37) U/L 29 ALT (16-63) U/L 18 Alkaline Phosphatase (46-116) U/L 80 Troponin I (<0.06) ng/mL < 0.05 Total Protein (6.4-8.2) g/dL 6.9 Albumin (3.4-5.0) g/dL 2.8 L COVID-19 Source Range/Units 08/28/21 15:20 WBC (4.4-10.8) 10^3/uL RBC (4.36-5.78) 10^6/uL Hgb (13.5-17.5) g/dL Hct (40.0-50.0) % MCV (80-95) fL MCH (27.0-33.0) pg MCHC (32.0-36.0) % RDW (11.8-14.1) % Plt Count (130-400) 10^3/uL MPV (8.0-11.0) fL Immature Gran % Neutrophils % Lymphocytes % Monocytes % Eosinophils % Basophils % Nucleated RBC % % Absolute Neutrophils (1.2-6.7) 10^3/uL Absolute Lymphocytes (1.2-3.4) 10^3/uL Absolute Monocytes (0.1-0.8) 10^3/uL Absolute Eosinophils (0.0-0.7) 10^3/uL Absolute Basophils (0.0-0.2) 10^3/uL PT (9.3-11.0) sec INR (0.9-1.1) APTT (21.0-27.5) sec Sodium (136-145) mmol/L Potassium (3.5-5.1) mmol/L Chloride (98-107) mmol/L Carbon Dioxide (21.0-32.0) mmol/L Anion Gap (3-11) mmol/L BUN (7-18) mg/dL Creatinine (0.70-1.30) mg/dL Estimated GFR/1.73 m2 (mL/min/1.73m2) Glucose (74-106) mg/dL Calcium (8.5-10.1) mg/dL Magnesium (1.8-2.4) mg/dL Total Bilirubin (0.2-1.0) mg/dL AST (15-37) U/L ALT (16-63) U/L Alkaline Phosphatase (46-116) U/L Troponin I (<0.06) ng/mL Total Protein (6.4-8.2) g/dL Albumin (3.4-5.0) g/dL COVID-19 Source Nasal/Nares ECG Data Attestation: I personally reviewed and interpreted this ECG (s) as follows: Interpretation: Please see official report by Dr. Hernandez. Sinus rhythm with premature atrial complexes. Ventricular rate of 98. No STEMI. <Mariam Sauceda - Last Filed: 08/28/21 19:16> Care assumed from provider (CHELA Aleman) Please see their initial HPI, PE, and documentation. Discussed patient details and case and pending workup and disposition. Patient is hemodynamically stable, and alert and oriented. At the time of signout we are awaiting a right hip and pelvis x-ray results. Suspect right hip fracture. TECHNIQUE: Imaging protocol: Computed tomography of the head without contrast. COMPARISON: CT HEAD WO 11/22/2018 6:07 PM FINDINGS: Brain: No CT evidence of acute transcortical infarction. Generalized cerebral and cerebellar volume loss is within normal limits for the patient's age, with mild to moderate chronic small vessel ischemic change. No acute intracranial hemorrhage, edema, midline shift, or mass effect. Cerebral ventricles: No ventriculomegaly. Paranasal sinuses: Visualized sinuses are unremarkable. No fluid levels. Mastoid air cells: Visualized mastoid air cells are well aerated. Orbital cavity: Status post bilateral lens replacement surgery. Vasculature: Dense arteriosclerotic calcifications of the intracranial internal carotid arteries. Bones/joints: Unremarkable. No acute fracture. Soft tissues: Mild soft tissue swelling of the low left occipital scalp. IMPRESSION: 1. Mild soft tissue swelling of the low left occipital scalp may represent contusion. No underlying calvarial fracture. 2. Grossly stable arteriosclerosis and chronic small vessel ischemic change Imaging protocol: XR Right hip. Views: 2 or 3 views hip with pelvis when performed. COMPARISON: CT CHEST/ABD/PEL W 06/01/2021 10:28 AM FINDINGS: Bones/joints: Mildly displaced, mildly angulated subcapital fracture of the right femur. There are degenerative changes of the visualized lower lumbar spine, sacroiliac joints, and hips. Soft tissues: Unremarkable. Vasculature: Stable calcifications over the left pelvis are consistent with phleboliths. Vascular calcifications are noted. IMPRESSION: Mildly displaced, mildly angulated subcapital fracture of the right femur. Thank you for allowing us to participate in the care of your patient. Dictated and Authenticated by: Lawson Draper MD 1615: Ortho Paged 162: Spoke with treatment course with orthopedic surgery who was able to personally view the x-ray images. He recommends reimaging the right hip due to poor quality and having the x-rays done without his right leg being externally rotated. He also requests a right femur. I did discuss results with patient who verbalizes understanding and is in agreement with the plan for admission. Patient is awake and alert still complaining of some right hip pain. An additional 4 mg of morphine ordered at this time. Patient did receive 4 mg prior to my arrival by my colleague approximately 2:30pm. 1625: Hospitalist paged. CT CHEST/ABD/PEL W 06/01/2021 10:28 AM FINDINGS: Lungs: Hyperaeration of the upper lung marroquin with crowding of the markings at the lung bases consistent with COPD seen on the prior CT chest examination. No focal airspace consolidation is appreciated. Pleural spaces: Unremarkable. No pleural effusion. No pneumothorax. Heart/Mediastinum: Unremarkable. No cardiomegaly. Bones/joints: Generalized osteopenia. IMPRESSION: Grossly stable changes of COPD, without demonstration of acute airspace consolidation. 1630: Spoke with Dr. Calixto regarding patient he agrees to accept patient for admission at this time. Prior to patient being transported up to the floor Dr. Bunn reviewed repeat x- rays and recommends a CT of the hip. Orders placed. Patient transported to [facility] in hemodynamically stable condition. HPI <CHELA Tobar - Last Filed: 08/29/21 12:08> General Mode of arrival: EMS . Date/Time Provider Initiated Documentation: 08/28/21 14:39 . Limitations to Documentation: no limitations . Information obtained by: patient and EMS . HPI Narrative: This is an 80-year-old gentleman, full code, past medical history that includes BPH, hypertension, presenting to the ER for evaluation status post fall secondary to feeling lightheadedness or dizziness, subsequent right hip injury. Patient states the pain in his right hip is severe, unable to bear weight. The fall occurred around 10 AM, he states he did strike his head but denies any headache or LOC. He was able to crawl over to his bed where he laid for quite some time hoping the pain would get better, it did not and subsequently he called EMS. He denies recent illness. Denies any other recent trauma. Denies visual changes, neck pain, fever, chest pain, shortness of breath, abdominal pain, nausea, vomiting, any other injuries, difficulty with bowel or bladder function, numbness, tingling, weakness. Has not taken any medication for his symptoms. Related Data Home Medications Medication Instructions Recorded Confirmed furosemide 20 mg tablet 20 mg PO DAILY #90 tab 11/27/19 06/23/21 tamsulosin 0.4 mg capsule 0.4 mg PO DAILY #90 cap 01/20/21 08/28/21 lisinopril 30 mg tablet 30 mg PO DAILY #90 tab 02/15/21 08/28/21 Previous Rx's Medication Instructions Recorded furosemide 20 mg tablet 20 mg PO DAILY #90 tab 11/27/19 tamsulosin 0.4 mg capsule 0.4 mg PO DAILY #90 cap 01/20/21 lisinopril 30 mg tablet 30 mg PO DAILY #90 tab 02/15/21 Allergies Allergy/AdvReac Type Severity Reaction Status Date / Time hydrochlorothiazide AdvReac Severe URINARY Verified 06/23/21 11:34 FREQ General Stated Complaint: Orthopedic JULIENNE: 3 Review of Systems <CHELA Tobar - Last Filed: 08/29/21 12:08> Constitutional Constitutional: Denies fatigue, Denies fever(s), Denies headache(s) and Denies weakness ENT Ears, Nose, Mouth, and Throat: Denies headache(s) Cardiovascular Cardiovascular: Denies chest pain and Denies dyspnea Respiratory Respiratory: Denies cough and Denies dyspnea Gastrointestinal Gastrointestinal: Denies abdominal pain, Denies nausea and Denies vomiting Musculoskeletal Musculoskeletal: Denies myalgias, Reports arthralgias, Denies numbness and Denies tingling Integumentary/Breasts Skin/Breast: Denies rash Neurologic Neurologic: Denies headache(s), Denies numbness, Denies tingling and Denies weakness Endocrine Endocrine: Denies fatigue Hematologic/Lymphatic Hematologic/Lymphatic: Denies easy bleeding and Denies easy bruising PFSH <CHELA Tobar - Last Filed: 08/29/21 12:08> All Active Problems (Updated 08/29/21 @ 11:36 by Dary Baum NP) DVT prophylaxis (Acute) Discharge planning issues (Acute) Closed fracture of neck of right femur (Acute) Fracture of femoral neck, right (Acute 08/28/21) Diarrhea (Acute) Weight loss (Acute) 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) Irregular heart beat (Acute) Elevated alkaline phosphatase level (Acute) Insomnia (Acute) Tobacco abuse (Acute) Peripheral vascular disease (Chronic 07/28/14) Essential hypertension (Chronic 07/10/13) Chronic obstructive pulmonary disease (COPD) (Chronic 07/28/14) Benign prostate hyperplasia (Chronic 07/28/14) Medical History BPH (benign prostatic hyperplasia) HTN (hypertension) Neck pain (07/11/13) 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 Social History Smoking/Tobacco Use Status: Current every day Tobacco Type: cigarettes Quit status: considering quitting Smoking risk assessment performed?: Yes Alcohol Intake: current Alcohol Intake frequency: 0-2 drinks per day Alcohol type: beer Drug use: Never Substance use type: painkillers Details: 2 beers a day. Household members: significant other Communication Needs: Hard of Hearing Pets and animals: No Sexually active: No Current gender identity: decline to answer What is your relationship status?: living with partner How often do you talk on the phone with friends or family?: decline to answer How often do you get together with friends or relatives?: decline to answer How often do you attend confucianist or episcopal services?: decline to answer Do you belong to any clubs or organized social groups?: decline to answer Panel score (0-1 are the most socially isolated patients): 1 What type of physical activity do you participate in: decline to answer Duration: decline to answer Frequency: decline to answer Tiffany/Jew: None Special tiffany needs: No Seatbelt use: always Drive intox or ride w/intox [employer] company driver: No Do you feel safe at home: Yes Do you feel safe in your relationship?: Yes Exam <CHELA Tobar - Last Filed: 08/29/21 12:08> Const General: cooperative, comfortable and in distress Orientation: alert, awake and oriented x3 HENMT Head: normal to inspection, normocephalic and atraumatic Face and sinus: normal facial exam Mouth: moist mucous membranes Eyes General: appearance normal, both eyes and all related structures Conjunctivae: conjunctivae normal Neck Neck: normal visual inspection, full ROM, trachea midline, supple and nontender Resp Effort & Inspection: normal respiratory effort and able to speak in complete sentences Auscultation: clear to auscultation bilaterally Cardio Rate: tachycardic (102) Rhythm: regular rhythm GI Inspection: normal to inspection Palpation: soft and nontender Back/Spine/Pelvis Back: No back tenderness Skin General skin exam: no rashes or lesions noted Neuro General: patient alert, patient awake, patient oriented x3, moves all extremities and no focal motor deficits Cognition: normal cognition Speech: speech normal Motor: muscle tone normal throughout Sensory Exam: no sensory deficits noted Extrem General: capillary refill normal Other: Right lower extremity is shortened and externally rotated. Diffuse right hip discomfort. Skin is intact. Normal pedal pulse and capillary refill. Psych Appearance: grossly normal Mental Status: mental status grossly normal Course <CHELA Tobar - Last Filed: 08/29/21 12:08> Vital Signs Vital signs: Vital Signs Temperature 36.3 C L 08/28/21 14:31 Blood Pressure 150/73 H 08/28/21 14:31 Pulse Oximetry 92 08/28/21 14:31 Temperature 36.3 C L 08/28/21 14:31 Temperature Source Temporal Artery Scan 08/28/21 14:31 Blood Pressure 150/73 H 08/28/21 14:31 Blood Pressure Position Sitting 08/28/21 14:31 Pulse Oximetry 92 08/28/21 14:31 Oxygen Delivery Method Room Air 08/28/21 14:31 Oxygen Flow Rate 0 08/28/21 14:31 Critical Care Time <CHELA Tobar - Last Filed: 08/29/21 12:08> Critical Care Time Critical Care Time: Yes Total Critical Care Time: 35 Attestation: Upon my evaluation, this patient had a high probability of clinically significant, life-threatening deterioration due to their current medical conditions, which required my direct attention, intervention, and personal management. I have personally provided greater than 30 minutes of critical care time exclusive of the time spend on separately billable p rocedures. Time includes obtaining a history, examining the patient, pulse oximetry, review of laboratory data, radiology results, discussion with consultants, arranging urgent treatment with development of a management plan, evaluation of patient's response to treatment, and monitoring for potential decompensation. Interventions were performed as documented above. Sign Out <CHELA Tobar - Last Filed: 08/29/21 12:08> Sign Out Data: Sign Out Comment: Likely right hip fracture. Obtaining head CT and cardiac work-up given his dizziness. Receiving IV fluid and 4 mg IV morphine. Once imaging is completed, will need reevaluation and likely admission to our facility for dizziness observation and a right hip fracture surgery Last updated by Sergio Robbins PA at 08/28/21 15:51
[2021-08-28 14:51] LABS: Abs Immature Grans 0.02 10^3/uL (0.0-0.06); Absolute Basophil Count 0.03 10^3/uL (0.0-0.2); Absolute Eosinophil Count 0.16 10^3/uL (0.0-0.7); Absolute Lymphocyte Count 0.87 10^3/uL (1.2-3.4); Absolute Monocyte Count 0.62 10^3/uL (0.1-0.8); Absolute Neutrophil Count 5.67 10^3/uL (1.2-6.7); Basophils % 0.4; Eosinophils % 2.2; HCT 36.6 % (40.0-50.0); HGB 12.3 g/dL (13.5-17.5); Immature Grans % 0.3; Lymphocytes % 11.8; MCH 32.9 pg (27.0-33.0); MCHC 33.6 % (32.0-36.0); MCV 97.9 fL (80-95); MPV 10.2 fL (8.0-11.0); Monocytes % 8.4; Neutrophils % 76.9; Nucleated RBC 0 %; Platelet Count 186 10^3/uL (130-400); RBC 3.74 10^6/uL (4.36-5.78); RDW 12.3 % (11.8-14.1); RDW-SD 44.4 fL; WBC 7.37 10^3/uL (4.4-10.8)
[2021-08-28 15:07] LABS: ALT 18 U/L (16-63); AST 29 U/L (15-37); Albumin 2.8 g/dL (3.4-5.0); Alkaline Phosphatase 80 U/L (46-116); Anion Gap 4.8 mmol/L (3-11); BUN 11 mg/dL (7-18); Bilirubin, Total 0.5 mg/dL (0.2-1.0); CO2 29.2 mmol/L (21.0-32.0); Calcium 8.2 mg/dL (8.5-10.1); Chloride 102 mmol/L (98-107); Glucose 142 mg/dL (74-106); Magnesium 1.7 mg/dL (1.8-2.4); Potassium 3.6 mmol/L (3.5-5.1); Sodium 136 mmol/L (136-145); Total Protein 6.9 g/dL (6.4-8.2)
[2021-08-28] MEDS: MORPHine 10 MG/ML VIAL 4 MG IVP (15:08)
[2021-08-28 15:09] LABS: Troponin I < 0.05 ng/mL (<0.06)
[2021-08-28] MEDS: Normal Saline 1,000 ML 125 ML IV (15:09)
[2021-08-28 15:18] LABS: INR 1.1 (0.9-1.1); PTT Activated 23.7 sec (21.0-27.5); Prothrombin Time 11.5 sec (9.3-11.0)
[2021-08-28 15:26] LABS: Source Nasal/Nares
--- NOTE | 2021-08-28 16:03 | DI.VRAD_ITS ---
PROCEDURE INFORMATION: Exam: CT Head Without Contrast Exam date and time: 08/28/2021 2:41 PM Age: 80 years old Clinical indication: Injury or trauma; Fall; Blunt trauma (contusions or hematomas) TECHNIQUE: Imaging protocol: Computed tomography of the head without contrast. COMPARISON: CT HEAD WO 11/22/2018 6:07 PM FINDINGS: Brain: No CT evidence of acute transcortical infarction. Generalized cerebral and cerebellar volume loss is within normal limits for the patient's age, with mild to moderate chronic small vessel ischemic change. No acute intracranial hemorrhage, edema, midline shift, or mass effect. Cerebral ventricles: No ventriculomegaly. Paranasal sinuses: Visualized sinuses are unremarkable. No fluid levels. Mastoid air cells: Visualized mastoid air cells are well aerated. Orbital cavity: Status post bilateral lens replacement surgery. Vasculature: Dense arteriosclerotic calcifications of the intracranial internal carotid arteries. Bones/joints: Unremarkable. No acute fracture. Soft tissues: Mild soft tissue swelling of the low left occipital scalp. IMPRESSION: 1. Mild soft tissue swelling of the low left occipital scalp may represent contusion. No underlying calvarial fracture. 2. Grossly stable arteriosclerosis and chronic small vessel ischemic change. Dictated and Authenticated by: Lawson Draper MD. Ordering:JAYLON Hill MD
--- NOTE | 2021-08-28 16:12 | DI.VRAD_ITS ---
PROCEDURE INFORMATION: Exam: XR Right Hip Exam date and time: 08/28/2021 2:41 PM Age: 80 years old Clinical indication: Other: Fall/pain TECHNIQUE: Imaging protocol: XR Right hip. Views: 2 or 3 views hip with pelvis when performed. COMPARISON: CT CHEST/ABD/PEL W 06/01/2021 10:28 AM FINDINGS: Bones/joints: Mildly displaced, mildly angulated subcapital fracture of the right femur. There are degenerative changes of the visualized lower lumbar spine, sacroiliac joints, and hips. Soft tissues: Unremarkable. Vasculature: Stable calcifications over the left pelvis are consistent with phleboliths. Vascular calcifications are noted. IMPRESSION: Mildly displaced, mildly angulated subcapital fracture of the right femur. Dictated and Authenticated by: Lawson Draper MD. Ordering:JAYLON Hill MD
--- NOTE | 2021-08-28 16:15 | DI.RAD_ITS ---
Exam(s) XR FEMUR RT EXAM: XR FEMUR RT CLINICAL HISTORY: Right Hip Fracture. TECHNIQUE: 2D digital imaging was performed. COMPARISON: CR,XR XR HIP RT COMPLETE AP PELVIS from 08/28/2021 CR,XR XR HIP RT COMPLETE AP PELVIS from 08/28/2021 FINDINGS: There is fracture at the femoral neck subcapital region. Unchanged from previous no fracture seen mo re distally in the ipsilateral femur. IMPRESSION: DATA REPOSITORY: RADIATION DOSE DELIVERED:
--- NOTE | 2021-08-28 16:22 | DI.RAD_ITS ---
Exam(s) XR HIP RT COMPLETE AP PELVIS EXAM: XR HIP RT COMPLETE AP PELVIS CLINICAL HISTORY: Re-eval Right hip Fracture. TECHNIQUE: 2D digital imaging was performed. COMPARISON: CR,XR XR HIP RT COMPLETE AP PELVIS from 08/28/2021 FINDINGS: There is a minimally displaced subcapsular fracture of the right hip. No other fractures identified. No osseous lesions. IMPRESSION: DATA REPOSITORY: RADIATION DOSE DELIVERED:
--- NOTE | 2021-08-28 16:26 | DI.VRAD_ITS ---
PROCEDURE INFORMATION: Exam: XR Chest Exam date and time: 08/28/2021 3:37 PM Age: 80 years old Clinical indication: Other: Fall/dizzy TECHNIQUE: Imaging protocol: XR of the chest. Views: 1 view. COMPARISON: CT CHEST/ABD/PEL W 06/01/2021 10:28 AM FINDINGS: Lungs: Hyperaeration of the upper lung marroquin with crowding of the markings at the lung bases consistent with COPD seen on the prior CT chest examination. No focal airspace consolidation is appreciated. Pleural spaces: Unremarkable. No pleural effusion. No pneumothorax. Heart/Mediastinum: Unremarkable. No cardiomegaly. Bones/joints: Generalized osteopenia. IMPRESSION: Grossly stable changes of COPD, without demonstration of acute airspace consolidation. Dictated and Authenticated by: Lawson Draper MD. Ordering:JAYLON Hill MD
--- NOTE | 2021-08-28 16:56 | HPE_ITS ---
Date of service: 08/28/21 Time of Service: 16:56 Assessment and Plan Assessment and plan (1) Closed fracture of neck of right femur: Start date: 08/28/21 Start time: 17:30 Status: Acute Assessment and plan: From mechanical fall OR tomorrow with ortho NPO after MN, PT and DVT prophylaxis when ortho recommends Qualifiers: Encounter type: initial encounter Qualified Code(s): S72.001A - Fractur e of unspecified part of neck of right femur, initial encounter for closed fracture (2) Peripheral vascular disease: Start date: 08/28/21 Start time: 17:30 Status: Chronic Assessment and plan: Recommend smoking cessation. at this time not interested in quiting. (3) Essential hypertension: Start date: 08/28/21 Start time: 17:30 Status: Chronic Assessment and plan: continue lisinopril (4) Chronic obstructive pulmonary disease (COPD): Start date: 08/28/21 Start time: 17:30 Status: Chronic Assessment and plan: not exacerbated at this time Qualifiers: COPD type: emphysema Emphysema type: panlobular Qualified Code(s): J43.1 - Panlobular emphysema (5) Benign prostate hyperplasia: Start date: 08/28/21 Start time: 17:30 Status: Chronic Assessment and plan: Continue tamsulosin (6) Tobacco abuse: Start date: 08/28/21 Start time: 17:30 Status: Acute Assessment and plan: as above nicotine replacement as needed (7) DVT prophylaxis: Start date: 08/28/21 Start time: 17:30 Status: Acute Assessment and plan: teds and scds, hold chemical until cleared by ortho (8) Discharge planning issues: Start date: 08/28/21 Start time: 17:30 Status: Acute Assessment and plan: Patient will be evaluated by PT. SNIF vs rehab discussed with Dr. Calixto History of Present Illness History of Present Illness Chief Complaint: Right femur fx Narrative: 80 y.o male with pmh of smoking, HTN, PVD, BPH, COPD, presented to [facility] after getting up from chair and going from living room to bathroom falling on living room floor. ED labs insignificant. He has been asked to be admitted for further management. Ortho consulted, NPO after MN surgery for OR. He is low-moderate risk for surgery. 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) Irregular heart beat (Acute) Elevated alkaline phosphatase level (Acute) Insomnia (Acute) Tobacco abuse (Acute) Peripheral vascular disease (Chronic 07/28/14) Essential hypertension (Chronic 07/10/13) Chronic obstructive pulmonary disease (COPD) (Chronic 07/28/14) Benign prostate hyperplasia (Chronic 07/28/14) Medical History BPH (benign prostatic hyperplasia) HTN (hypertension) Neck pain (07/11/13) 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 Social History Smoking/Tobacco Use Status: Current every day Tobacco Type: cigarettes Quit status: considering quitting Smoking risk assessment performed?: Yes Alcohol Intake: current Alcohol Intake frequency: 0-2 drinks per day Alcohol ty pe: beer Drug use: Never Substance use type: painkillers Details: 2 beers a day. Household members: significant other Communication Needs: Hard of Hearing Pets and animals: No Sexually active: No Current gender identity: decline to answer What is your relationship status?: living with partner How often do you talk on the phone with friends or family?: decline to answer How often do you get together with friends or relatives?: decline to answer How often do you attend pentecostalism or christianity services?: decline to answer Do you belong to any clubs or organized social groups?: decline to answer Panel score (0-1 are the most socially isolated patients): 1 What type of physical activity do you participate in: decline to answer Duration: decline to answer Frequency: decline to answer Tiffany/Restorationism: None Special tiffany needs: No Seatbelt use: always Drive intox or ride w/intox driver license technician: No Do you feel safe at home: Yes Do you feel safe in your relationship?: Yes Meds Allergies and Home Medications Allergies Allergy/AdvReac Type Severity Reaction Status Date / Time hydrochlorothiazide AdvReac Severe URINARY Verified 06/23/21 11:34 FREQ Home Medications Medication Instructions Recorded Confirmed Type furosemide 20 mg tablet 20 mg PO DAILY #90 tab 11/27/19 06/23/21 Rx tamsulosin 0.4 mg capsule 0.4 mg PO DAILY #90 cap 01/20/21 08/28/21 Rx lisinopril 30 mg tablet 30 mg PO DAILY #90 tab 02/15/21 08/28/21 Rx Exam Const General: cooperative, comfortable and no acute distress Orientation: alert, awake and oriented x3 Eyes Eyelids: eyelids normal Pupils: PERRL EOM: EOM intact bilaterally Neck Neck: normal visual inspection and no JVD Lymphatic: no lymphadenopathy noted Resp Effort & Inspection: normal respiratory effort Auscultation: clear to auscultation bilaterally Cardio Jugular venous pressure: no JVD Rhythm: regular rhythm Heart Sounds: S1 normal GI Auscultation: normal bowel sounds General: No CVA tenderness and deferred Skin General skin exam: no rashes or lesions noted Neuro General: patient alert, patient awake and patient oriented x3 Cognition: normal cognition Speech: speech normal Gait: normal gait Extrem General: abnormal to inspection Right lower extremity: lower leg Details: deformity (externally rotated with shortening); inspection abnormal; ROM limited Results Labs Result diagrams: 08/29/21 06:54 08/29/21 06:54 Labs: Laboratory Results - last 24 hr 08/28/21 08/28/21 08/28/21 14:45 14:45 15:00 WBC 7.37 RBC 3.74 L Hgb 12.3 L Hct 36.6 L MCV 97.9 H MCH 32.9 MCHC 33.6 RDW 12.3 Plt Count 186 MPV 10.2 Immature Gran % 0.3 Neutrophils % 76.9 Lymphocytes % 11.8 Monocytes % 8.4 Eosinophils % 2.2 Basophils % 0.4 Nucleated RBC % 0 Absolute Neutrophils 5.67 Absolute Lymphocytes 0.87 L Absolute Monocytes 0.62 Absolute Eosinophils 0.16 Absolute Basophils 0.03 PT 11.5 H INR 1.1 APTT 23.7 Sodium 136 Potassium 3.6 Chloride 102 Carbon Dioxide 29.2 Anion Gap 4.8 BUN 11 Creatinine 1.0 Estimated GFR/1.73 m2 >= 60.00 Glucose 142 H Calcium 8.2 L Magnesium 1.7 L Total Bilirubin 0.5 AST 29 ALT 18 Alkaline Phosphatase 80 Troponin I < 0.05 Total Protein 6.9 Albumin 2.8 L COVID-19 Source 08/28/21 15:20 WBC RBC Hgb Hct MCV MCH MCHC RDW Plt Count MPV Immature Gran % Neutrophils % Lymphocytes % Monocytes % Eosinophils % Basophils % Nucleated RBC % Absolute Neutrophils Absolute Lymphocytes Absolute Monocytes Absolute Eosinophils Absolute Basophils PT INR APTT Sodium Potassium Chloride Carbon Dioxide Anion Gap BUN Creatinine Estimated GFR/1.73 m2 Glucose Calcium Magnesium Total Bilirubin AST ALT Alkaline Phosphatase Troponin I Total Protein Albumin COVID-19 Source Nasal/Nares Last Vital Signs Temp 36.3 C L 08/28/21 14:31 BP 150/73 H 08/28/21 14:31 Pulse Ox 92 08/28/21 14:31
[2021-08-28 17:23] LABS: COVID-19 PCR Negative (Negative)
--- NOTE | 2021-08-28 17:27 | DI.VRAD_ITS ---
PROCEDURE INFORMATION: Exam: XR Right Femur Exam date and time: 08/28/2021 4:24 PM Age: 80 years old Clinical indication: Other: Right hip fracture TECHNIQUE: Imaging protocol: XR Right femur. Views: 2 views. COMPARISON: CR XR HIP RT COMPLETE AP PELVIS 08/28/2021 5:03 PM FINDINGS: Bones/joints: Subcapital fracture of the right femur is grossly unchanged from the prior right hip series. No additional fractures of the right femur are appreciated. Degenerative changes of the right hip and right knee are noted, which appear mild. Soft tissues: Unremarkable. Vasculature: Arterial calcifications are appreciated. IMPRESSION: Stable appearance of the subcapital fracture of the right femur. Dictated and Authenticated by: Lawson Draper MD. Ordering:ROSANNE Becerra MD
--- NOTE | 2021-08-28 17:29 | DI.VRAD_ITS ---
PROCEDURE INFORMATION: Exam: XR Right Hip Exam date and time: 08/28/2021 4:36 PM Age: 80 years old Clinical indication: Other: Re-eval right hip fracture TECHNIQUE: Imaging protocol: XR Right hip. Views: 2 or 3 views hip with pelvis when performed. COMPARISON: CR XR HIP RT COMPLETE AP PELVIS 08/28/2021 3:51 PM FINDINGS: Bones/joints: Mildly displaced, mildly angulated subcapital fracture of the right femur. Mild degenerative changes of the hips and sacroiliac joints. Soft tissues: Unremarkable. Vasculature: Scattered vascular calcifications are appreciated. IMPRESSION: Mildly displaced, mildly angulated subcapital fracture of the right femur. Dictated and Authenticated by: Lawson Draper MD. Ordering:ROSANNE Becerra MD
--- NOTE | 2021-08-28 17:36 | NUR.NOTE ---
Nursing Note: Sheyla [phone] updates later
--- NOTE | 2021-08-28 17:45 | DI.CT_ITS ---
Exam(s) CT PELVIC WO EXAM: CT PELVIC WO CLINICAL HISTORY: Evaluate right hip fracture. TECHNIQUE: Imaging Protocol: Axial computed tomography images with coronal and sagittal reformatted images were created and reviewed CONTRAST MATERIAL: Intravenous: none Oral: None COMPARISON: No exams were available for comparison FINDING: PELVIS: OSSEOUS: There is a mildly displaced and angulated and mildly impacted subcapital fracture of the rig ht hip.No acetabular fracture. No pubic rami fractures IMPRESSION: 1. Subcapital fracture of the right hip with mild impaction and angulation. 2. 3. RADIATION DOSE DELIVERED: 312.74mGy.cm Total DLP DATA REPOSITORY: All CT scans at this facility are submitted to the National Radiology Data Registry (NRDR) Dose Index Registry (DIR) with the [employer] (A[employer]). RADIATION OPTIMIZATION: All CT scans at this facility use at least one of these dose optimization te chniques: automated exposure control; mA and/or kV adjustment per patient size (includes targeted exa ms where dose is matched to clinical indication); or iterative reconstruction.
[2021-08-28 17:55] LABS: Troponin I < 0.05 ng/mL (<0.06)
--- NOTE | 2021-08-28 18:23 | DI.VRAD_ITS ---
PROCEDURE INFORMATION: Exam: CT Pelvis Without Contrast; Skeletal Exam date and time: 08/28/2021 5:53 PM Age: 80 years old Clinical indication: Injury or trauma; Fall; Fracture of pelvis \T\ hip; Right; Traumatic fracture; Neck of femur; Closed fracture TECHNIQUE: Imaging protocol: Computed tomography images of the pelvis without contrast. Exam focused on the skeletal structures. COMPARISON: CT CHEST/ABD/PEL W 06/01/2021 10:28 AM FINDINGS: Vasculature: Scattered atherosclerotic calcifications are appreciated. Bones/joints: Subcapital fracture of the proximal right femur is mildly displaced, angulated, and impacted. Small right hip lipohemarthrosis related to fracture. Mild degenerative changes of the right hip and right sacroiliac joint. Soft tissues: Unremarkable. IMPRESSION: Subcapital fracture of the proximal right femur is mildly displaced, angulated, and impacted. There is an associated right hip lipohemarthrosis. Dictated and Authenticated by: Lawson Draper MD. Ordering:ROSANNE Becerra MD
[2021-08-28] MEDS: Lactated Ringers 1,000 ML 75 ML IV (18:38)
[2021-08-28] MEDS: Ondansetron 4 MG/2 ML VIAL IVP (21:00)
[2021-08-28] MEDS: Acetaminophen 325 MG TAB PO (21:01)
[2021-08-28] MEDS: Normal Saline Flush 10 ML SYR IVP ×2 (21:21→23:23)
[2021-08-28] MEDS: MORPHine 4 MG/ML SYR IVP ×2 (21:21→23:24)
[2021-08-28] MEDS: Magnesium Oxide 400 MG TAB PO (21:21)
[2021-08-29] VITALS (13 sets, daily range): BP systolic 99–133; BP diastolic 57–84; PULSE 69–109; RESP 11–18; TEMP 36.4–37.7; O2SAT 88–96; BMI 16.5
[2021-08-29] MEDS: MORPHine 4 MG/ML SYR IVP ×5 (05:20→22:53)
[2021-08-29 07:33] LABS: Abs Immature Grans 0.02 10^3/uL (0.0-0.06); Absolute Basophil Count 0.02 10^3/uL (0.0-0.2); Absolute Eosinophil Count 0.18 10^3/uL (0.0-0.7); Absolute Lymphocyte Count 0.87 10^3/uL (1.2-3.4); Absolute Monocyte Count 0.68 10^3/uL (0.1-0.8); Absolute Neutrophil Count 5.02 10^3/uL (1.2-6.7); Basophils % 0.3; Eosinophils % 2.7; HCT 37.4 % (40.0-50.0); HGB 12.3 g/dL (13.5-17.5); Immature Grans % 0.3; Lymphocytes % 12.8; MCH 32.5 pg (27.0-33.0); MCHC 32.9 % (32.0-36.0); MCV 98.7 fL (80-95); MPV 10.6 fL (8.0-11.0); Neutrophils % 73.9; Nucleated RBC 0 %; Platelet Count 187 10^3/uL (130-400); RBC 3.79 10^6/uL (4.36-5.78); RDW 12.4 % (11.8-14.1); RDW-SD 44.9 fL; WBC 6.79 10^3/uL (4.4-10.8)
[2021-08-29 07:53] LABS: Anion Gap 3.6 mmol/L (3-11); BUN 11 mg/dL (7-18); CO2 29.4 mmol/L (21.0-32.0); CREATININE 0.9 mg/dL (0.70-1.30); Calcium 8.1 mg/dL (8.5-10.1); Chloride 104 mmol/L (98-107); Glucose 96 mg/dL (74-106); Magnesium 1.6 mg/dL (1.8-2.4); Potassium 3.9 mmol/L (3.5-5.1); Sodium 137 mmol/L (136-145)
--- NOTE | 2021-08-29 10:10 | ANES.PREOP_ITS ---
General Info Date of Service Date Performed: 08/29/21 Height: 5 ft 9 in Weight: 50.9 kg Body Mass Index (BMI): 16.5 Surgical Procedure: Operation Date: 08/29/21 11:10 Proposed Procedures Side Surgeon p Hip Uni/Bipolar Atul Right Jose Bunn MD Meds Allergies and Home Medications Allergies Allergy/AdvReac Type Severity Reaction Status Date / Time hydrochlorothiazide AdvReac Severe URINARY Verified 06/23/21 11:34 FREQ Home Medication Medication Instructions Recorded furosemide 20 mg tablet 20 mg PO DAILY #90 tab 11/27/19 tamsulosin 0.4 mg capsule 0.4 mg PO DAILY #90 cap 01/20/21 lisinopril 30 mg tablet 30 mg PO DAILY #90 tab 02/15/21 Current Visit Medications: Current Medications Generic Name Dose Route Start Last Admin Trade Name Freq PRN Reason Stop Dose Admin Acetaminophen 0 mg 08/28/21 16:35 08/28/21 21:01 Acetaminophen 325 Mg Tab PO 650 mg Q4H PRN PRN Administration Albuterol Sulfate 2.5 mg 08/28/21 16:35 Albuterol 2.5 Mg/3 Ml Inh Soln Vial UPD Q2H PRN PRN Calcium Citrate/Cholecalciferol 1 tab 08/29/21 08:30 Calcium Citrate/Cholecalciferol 315 Mg/250 Unit Tab PO DAILY TYRESE Dimethicone/Zinc Oxide 0 gm 08/28/21 16:29 Manny Protect Cream 142 Gm Tube TP PRN PRN Ringer's Solution 1,000 mls @ 75 mls/hr 08/28/21 17:00 08/28/21 18:38 IV 75 mls/hr INFUSION TYRESE Administration IV Miscellaneous Supplies 1 each 08/28/21 14:45 Iv Access IV DIRECTED TYRESE Lisinopril 30 mg 08/29/21 08:30 Lisinopril 10 Mg Tab PO DAILY TYRESE Magnesium Oxide 400 mg 08/28/21 22:00 08/28/21 21:21 Magnesium Oxide 400 Mg Tab PO 400 mg HS TYRESE Administration Morphine Sulfate 4 mg 08/28/21 20:50 08/29/21 05:20 Morphine 4 Mg/Ml Syr IVP 4 mg Q2H PRN PRN Administration Ondansetron HCl 4 mg 08/28/21 18:44 08/28/21 21:00 Ondansetron 4 Mg/2 Ml Vial IVP 4 mg Q4H PRN PRN Administration Polyethylene Glycol 17 gm 08/28/21 16:35 Polyethylene Glycol 3350 17 Gm Packet PO DAILY PRN PRN Constipation Sodium Chloride 0 ml 08/28/21 20:59 08/28/21 23:23 Normal Saline Flush 10 Ml Syr IVP 10 ml PRN PRN Administration Tamsulosin HCl 0.4 mg 08/29/21 08:30 Tamsulosin 0.4 Mg Capcr PO DAILY TYRESE PFSH Active Problems Active Problems: Problem Status Onset Code Closed fracture of neck of right femur S72.001A Fracture of femoral neck, right 08/28/21 S72.001A Diarrhea R19.7 Weight loss R63.4 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.0 Irregular heart beat I49.9 Elevated alkaline phosphatase level R74.8 Insomnia G47.00 Tobacco abuse Z72.0 Peripheral vascular disease 07/28/14 I73.9 Essential hypertension 07/10/13 I10 Chronic obstructive pulmonary disease (COPD) 07/28/14 J44.9 Benign prostate hyperplasia 07/28/14 N40.0 Medical History Medical History BPH (benign prostatic hyperplasia) HTN (hypertension) Neck pain (07/11/13) 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 Vital Signs and Lab Results Vital Signs Most Recent Vital Signs in EMR: Most Recent Vital Signs Temp Pulse Resp BP Pulse Ox 37.7 C H 109 H 17 126/79 92 08/29/21 08:05 08/29/21 08:05 08/29/21 08:05 08/29/21 08:05 08/29/21 08:05 Lab Results Result Diagrams: 08/29/21 06:54 08/29/21 06:54 Blood Type / Crossmatch: No Data to Display Complete Blood Count: White Blood Count 6.79 10^3/uL (4.4-10.8) 08/29/21 06:54 08/29/21 Red Blood Count 3.79 10^6/uL (4.36-5.78) L 08/29/21 06:54 08/29/21 Hemoglobin 12.3 g/dL (13.5-17.5) L 08/29/21 06:54 08/29/21 Hematocrit 37.4 % (40.0-50.0) L 08/29/21 06:54 08/29/21 Platelet Count 187 10^3/uL (130-400) 08/29/21 06:54 08/29/21 Complete Metabolic Panel: Sodium Level 137 mmol/L (136-145) 08/29/21 06:54 08/29/21 Potassium Level 3.9 mmol/L (3.5-5.1) 08/29/21 06:54 08/29/21 Chloride Level 104 mmol/L (98-107) 08/29/21 06:54 08/29/21 Carbon Dioxide Level 29.4 mmol/L (21.0-32.0) 08/29/21 06:54 08/29/21 Blood Urea Nitrogen 11 mg/dL (7-18) 08/29/21 06:54 08/29/21 Creatinine 0.9 mg/dL (0.70-1.30) 08/29/21 06:54 08/29/21 Estimated GFR/1.73 m2 >= 60.00 (mL/min/1.73m2) 08/29/21 06:54 08/29/21 Magnesium Level 1.6 mg/dL (1.8-2.4) L 08/29/21 06:54 08/29/21 Calcium Level 8.1 mg/dL (8.5-10.1) L 08/29/21 06:54 08/29/21 Albumin 2.8 g/dL (3.4-5.0) L 08/28/21 14:45 08/28/21 Glucose Level 96 mg/dL (74-106) 08/29/21 06:54 08/29/21 Liver Function Panel: Alanine Aminotransferase (ALT/SGPT) 18 U/L (16-63) 08/28/21 14:45 1 10/29/20 Aspartate Amino Transf (AST/SGOT) 29 U/L (15-37) 08/28/21 14:45 08/28/21 Coagulation Panel: INR International Normalized Ratio 1.1 (0.9-1.1) 08/28/21 15:00 08/28/21 Prothrombin Time 11.5 sec (9.3-11.0) H 08/28/21 15:00 08/28/21 Activated Partial Thromboplast Time 23.7 sec (21.0-27.5) 08/28/21 15:00 08/28/21 Cardiac Panel: Troponin I < 0.05 ng/mL (<0.06) 08/28/21 17:35 08/28/21 Arterial Blood Gas: No Data to Display Venous Blood Gas: No Data to Display Pancreas Panel: No Data to Display Thyroid Panel: No Data to Display Infectious Disease: Coronavirus (COVID-19)(PCR) Negative (Negative) 08/28/21 15:20 08/28/21 Coronavirus 2019 Source Nasal/Nares 08/28/21 15:20 08/28/21 Blood Cultures: No Data to Display Toxicology Panel: No Data to Display Imaging and Studies Imaging and Studies Study information below may be from another EMR and interpreted by another provider. Please see original notes in EMR for more complete details. EKG Summary: DATE/TIME OF SERVICE: 08/28/21 1447 HR:98 bpm ECG Measurements Heart Rate 98 AXIS ND 183 P 85 QRSd 77 QRS 68 QT 345 T59 QTc 435 Conclusion Sinus rhythm...normal P axis, V-rate 60- 99 Atrial premature complex...SV complex w/ short R-R interval Anesthesia Assessment and Plan Anesthesia History Personal History: No History of Anesthesia Complications Family History: No Family History of Anesthesia Complications Exercise Tolerance Exercise Tolerance: Metabolic Equivalents<4 Pertinent Negatives Pertinent Negatives: No Symptoms of GERD, No Major Cardiovascular Symptoms or Complaints and No Major Pulmonary Symptoms or Complaints Cardiac & Pulmonary Exam Cardiac Exam: Normal S1/S2 Heart Sounds Pulmonary Exam: Clear Bilateral Breath Sounds Implantable Cardiac Device Does patient have a Pacemaker or an ICD?: No Airway Exam Known Difficult Airway: No Mallampati Class: 2 Mouth Opening: Normal (> 3cm) Thyromental Distance: Greater than 3 cm Neck Range of Motion: Full ROM Neck Circumference: Normal Teeth Condition: Removable Dentures/Plates Upper and Removable Dentures/Plates Lower ASA Classification ASA Score: ASA 2 Emergency Case?: No NPO Status NPO Status: NPO Clears >2 hours, Solids >8 hours Anesthesia Plan Resuscitation Status: Full Code Anesthesia Technique: General Anesthesia Airway Planned: LMA Monitors Used: Standard Monitors Preoperative Comments:: Jay is a pleasant gentleman. He has had a cancerous lesion on his vocal cord which was treated with radiation and has [place] [facility] [place] His voice is hoarse but he states this is due to begin dry. Denies Cardiac, Pulmonary significant history and states he has been NPO.
[2021-08-29] MEDS: Lactated Ringers 1,000 ML 75 ML IV (10:56)
--- NOTE | 2021-08-29 11:03 | W.ORTHOCONSU ---
Date of service: 08/29/21 Time of Service: 10:51 History of Present Illness Narrative: 80 year old male s/p mechanical fall onto right side yesterday with severe right hip pain, inability ambulate, brought to the hospital found to have right femoral neck fracture. Denies any significant pre-existing hip issues. Independent ambulator. Lives at home with [facility]. Consult Reason Right hip fx Assessment and Plan Assessment and plan (1) Fracture of femoral neck, right: Status: Acute Assessment and plan: 80 year old male with Right displaced femoral neck fracture Medical admission and optimization for surgery: Evaluated and deemed appropriate candidate for planned procedure today Multimodal pain control, bedrest, SCDS, hold chemo dvt ppx pending OR, NPO, & IVF Decision to proceed with surgery: Right hip press-fit vs cemented hemiarthroplasty The risks, benefits, and alternatives were thoroughly discussed. Patient was counseled regarding pain management, expected postoperative course, and recovery timeline. All questions were answered. Informed consent was obtained. Patient agrees and understands treatment plan. 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) Irregular heart beat (Acute) Elevated alkaline phosphatase level (Acute) Insomnia (Acute) Tobacco abuse (Acute) Peripheral vascular disease (Chronic 07/28/14) Essential hypertension (Chronic 07/10/13) Chronic obstructive pulmonary disease (COPD) (Chronic 07/28/14) Benign prostate hyperplasia (Chronic 07/28/14) Medical History BPH (benign prostatic hyperplasia) HTN (hypertension) Neck pain (07/11/13) 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 Social History Smoking/Tobacco Use Status: Current every day Tobacco Type: cigarettes Quit status: considering quitting Smoking risk assessment performed?: Yes Alcohol Intake: current Alcohol Intake frequency: 0-2 drinks per day Alcohol type: beer Drug use: Never Substance use type: painkillers Details: 2 beers a day. Household members: significant other Communication Needs: Hard of Hearing Pets and animals: No Sexually active: No Current gender identity: decline to answer What is your relationship status?: living with partner How often do you talk on the phone with friends or family?: decline to answer How often do you get together with friends or relatives?: decline to answer How often do you attend taoist or gnosticism services?: decline to answer Do you belong to any clubs or organized social groups?: decline to answer Panel score (0-1 are the most socially isolated patients): 1 What type of physical activity do you participate in: decline to answer Duration: decline to answer Frequency: decline to answer Tiffany/Hinduism: None Special tiffany needs: No Seatbelt use: always Drive intox or ride w/intox service parts driver: No Do you feel safe at home: Yes Do you feel safe in your relationship?: Yes Exam Narrative Exam Narrative: Awake, alert, and oriented Resting comfortably. No acute distress. Breathing comfortably on room air. No cough wheezes 2+ right radial pulse. Tachycardic, but regular. Right thigh and hip without skin breakdown, significant edema or any ecchymosis Mild logroll elicits right hip pain. Knee range of motion benign. Distally neurovascular intact. Able to demonstrate active range of motion left lower extremity and bilateral upper extremity without difficulty Results Last Vital Signs Temp 97.3 F L 08/28/21 14:31 BP 150/73 H 08/28/21 14:31 Pulse Ox 92 08/28/21 14:31 Labs Result diagrams: 08/29/21 06:54 08/29/21 06:54 Labs: Laboratory Results - last 24 hr 08/28/21 08/28/21 08/28/21 14:45 14:45 15:00 WBC 7.37 RBC 3.74 L Hgb 12.3 L Hct 36.6 L MCV 97.9 H MCH 32.9 MCHC 33.6 RDW 12.3 Plt Count 186 MPV 10.2 Immature Gran % 0.3 Neutrophils % 76.9 Lymphocytes % 11.8 Monocytes % 8.4 Eosinophils % 2.2 Basophils % 0.4 Nucleated RBC % 0 Absolute Neutrophils 5.67 Absolute Lymphocytes 0.87 L Absolute Monocytes 0.62 Absolute Eosinophils 0.16 Absolute Basophils 0.03 PT 11.5 H INR 1.1 APTT 23.7 Sodium 136 Potassium 3.6 Chloride 102 Carbon Dioxide 29.2 Anion Gap 4.8 BUN 11 Creatinine 1.0 Estimated GFR/1.73 m2 >= 60.00 Glucose 142 H Calcium 8.2 L Magnesium 1.7 L Total Bilirubin 0.5 AST 29 ALT 18 Alkaline Phosphatase 80 Troponin I < 0.05 Total Protein 6.9 Albumin 2.8 L COVID-19 Source 08/28/21 15:20 WBC RBC Hgb Hct MCV MCH MCHC RDW Plt Count MPV Immature Gran % Neutrophils % Lymphocytes % Monocytes % Eosinophils % Basophils % Nucleated RBC % Absolute Neutrophils Absolute Lymphocytes Absolute Monocytes Absolute Eosinophils Absolute Basophils PT INR APTT Sodium Potassium Chloride Carbon Dioxide Anion Gap BUN Creatinine Estimated GFR/1.73 m2 Glucose Calcium Magnesium Total Bilirubin AST ALT Alkaline Phosphatase Troponin I Total Protein Albumin COVID-19 Source Nasal/Nares Imaging Imaging Studies: Right hip x-rays and CT scan reviewed showing complete femoral neck fracture with moderate comminution and displacement
[2021-08-29] MEDS: ceFAZolin 2 GM/50 ML BAG IVPB (11:36)
--- NOTE | 2021-08-29 11:44 | W.PM.PROGNOT ---
Date of Service Date of service: 08/29/21 Time of Service: 11:44 Assessment and Plan Assessment and plan (1) Closed fracture of neck of right femur: Start date: 08/29/21 Start time: 08:00 Status: Acute Assessment and plan: OR today with ortho. NPO since MN Qualifiers: Encounter type: initial encounter Qualified Code(s): S72.001A - Fracture of unspecified part of neck of right femur, initial encounter for closed fracture (2) Peripheral vascular disease: Start date: 08/29/21 Start time: 08:00 Status: Chronic Assessment and plan: Recommend smoking cessation. at this time not interested in quiting. (3) Essential hypertension: Start date: 08/29/21 Start time: 08:00 Status: Chronic Assessment and plan: continue lisinopril (4) Chronic obstructive pulmonary disease (COPD): Start date: 08/29/21 Start time: 08:00 Status: Chronic Assessment and plan: not exacerbated at this time Qualifiers: COPD type: emphysema Emphysema type: panlobular Qualified Code(s): J43.1 - Panlobular emphysema (5) Benign prostate hyperplasia: Start date: 08/29/21 Start time: 08:00 Status: Chronic Assessment and plan: Continue tamsulosin (6) Tobacco abuse: Start date: 08/29/21 Start time: 08:00 Status: Acute Assessment and plan: as above nicotine replacement as needed (7) DVT prophylaxis: Start date: 08/29/21 Start time: 08:00 Status: Acute Assessment and plan: teds and scds, hold chemical until cleared by ortho (8) Discharge planning issues: Start date: 08/29/21 Start time: 08:00 Status: Acute Assessment and plan: Patient will be evaluated by PT. SNIF vs rehab discussed with Dr. Calixto Subjective Subjective Patient reports: still having pain Interval history since last seen: Having pain, will give added dose morphine for pain. Surgery for this afternoon. Exam Const General: cooperative, frail appearing and other (in pain) Orientation: alert, awake and oriented x3 Eyes Eyelids: eyelids normal Pupils: PERRL EOM: EOM intact bilaterally Neck Neck: normal visual inspection and no JVD Lymphatic: no lymphadenopathy noted Resp Effort & Inspection: normal respiratory effort Auscultation: clear to auscultation bilaterally Cardio Jugular venous pressure: no JVD Rhythm: regular rhythm Heart Sounds: S1 normal GI Auscultation: normal bowel sounds General: No CVA tenderness and deferred Skin General skin exam: no rashes or lesions noted Neuro General: patient alert, patient awake and patient oriented x3 Cognition: normal cognition Speech: speech normal Gait: normal gait Extrem General: abnormal to inspection Right lower extremity: lower leg Details: deformity (externally rotated with shortening); inspection abnormal; ROM limited Objective Last Vital Signs Temp 37.7 C H 08/29/21 08:05 Pulse 109 H 08/29/21 08:05 Resp 17 08/29/21 08:05 BP 126/79 08/29/21 08:05 Pulse Ox 92 08/29/21 08:05 Laboratory Results - last 24 hr 08/28/21 08/28/21 08/28/21 14:45 14:45 15:00 WBC 7.37 RBC 3.74 L Hgb 12.3 L Hct 36.6 L MCV 97.9 H MCH 32.9 MCHC 33.6 RDW 12.3 Plt Count 186 MPV 10.2 Immature Gran % 0.3 Neutrophils % 76.9 Lymphocytes % 11.8 Monocytes % 8.4 Eosinophils % 2.2 Basophils % 0.4 Nucleated RBC % 0 Absolute Neutrophils 5.67 Absolute Lymphocytes 0.87 L Absolute Monocytes 0.62 Absolute Eosinophils 0.16 Absolute Basophils 0.03 PT 11.5 H INR 1.1 APTT 23.7 Sodium 136 Potassium 3.6 Chloride 102 Carbon Dioxide 29.2 Anion Gap 4.8 BUN 11 Creatinine 1.0 Estimated GFR/1.73 m2 >= 60.00 Glucose 142 H Calcium 8.2 L Magnesium 1.7 L Total Bilirubin 0.5 AST 29 ALT 18 Alkaline Phosphatase 80 Troponin I < 0.05 Total Protein 6.9 Albumin 2.8 L COVID-19 Source SARS-CoV-2 (PCR) 08/28/21 08/28/21 08/29/21 15:20 17:35 06:54 WBC RBC Hgb Hct MCV MCH MCHC RDW Plt Count MPV Immature Gran % Neutrophils % Lymphocytes % Monocytes % Eosinophils % Basophils % Nucleated RBC % Absolute Neutrophils Absolute Lymphocytes Absolute Monocytes Absolute Eosinophils Absolute Basophils PT INR APTT Sodium 137 Potassium 3.9 Chloride 104 Carbon Dioxide 29.4 Anion Gap 3.6 BUN 11 Creatinine 0.9 Estimated GFR/1.73 m2 >= 60.00 Glucose 96 Calcium 8.1 L Magnesium 1.6 L Total Bilirubin AST ALT Alkaline Phosphatase Troponin I < 0.05 Total Protein Albumin COVID-19 Source Nasal/Nares SARS-CoV-2 (PCR) Negative 08/29/21 06:54 WBC 6.79 RBC 3.79 L Hgb 12.3 L Hct 37.4 L MCV 98.7 H MCH 32.5 MCHC 32.9 RDW 12.4 Plt Count 187 MPV 10.6 Immature Gran % 0.3 Neutrophils % 73.9 Lymphocytes % 12.8 Monocytes % 10.0 Eosinophils % 2.7 Basophils % 0.3 Nucleated RBC % 0 Absolute Neutrophils 5.02 Absolute Lymphocytes 0.87 L Absolute Monocytes 0.68 Absolute Eosinophils 0.18 Absolute Basophils 0.02 PT INR APTT Sodium Potassium Chloride Carbon Dioxide Anion Gap BUN Creatinine Estimated GFR/1.73 m2 Glucose Calcium Magnesium Total Bilirubin AST ALT Alkaline Phosphatase Troponin I Total Protein Albumin COVID-19 Source SARS-CoV-2 (PCR)
--- NOTE | 2021-08-29 13:45 | DI.RAD_ITS ---
Exam(s) XR PELVIS AP EXAM: XR PELVIS AP CLINICAL HISTORY: Postop. TECHNIQUE: 2D digital imaging was performed. COMPARISON: 08/28/2021 FINDINGS: There is now a right hip prosthesis in place. Appears to be in satisfactory position alignment on th is single view. No other fractures identified. IMPRESSION: DATA REPOSITORY: RADIATION DOSE DELIVERED:
--- NOTE | 2021-08-29 14:35 | W.NUTRFU ---
Date of service: 08/29/21 Time of Service: 14:36 Nutrition Note NOTE: 80yo male admitted with fx of R femur and PMH significant for diarrhea, weight loss, COPD, DVT, HTN, BPH, carcinoma of vocal chords, tobacco abuse. Meds: Cefazolin, ephedrine, lactated ringers, Lisinopril, omeprazole, tamsulosin, tranexamic acid, calcium citrate/vitamin D, Mg oxide; with acetaminophen, albuterol, lizbeth, morphine, naloxone, nicotine, ondansetron and polyethylene glycol prn. Pt ordered regular/normal diet however currently npo as of breakfast this morning for xray. Pt not in room x2 attempts to visit. Of concern is Mr. Simms?s weight loss of 7.1kg since January of this year. He is currently 50.9kg with a BMI of 16.6kg/m2. His IBW is 72.7kg for his current height (175cm). Estimated nutrition needs: 1527-1781kcals (30-35kcals/kg for weight gain), 61-76g protein (1.2-1.5g/kg) and 1272mL fluid (25mL per kg). Diagnosis: Severe malnutrition in the context of chronic illness related to increased nutrition needs and low energy intake AEB 12% wt loss in 7 months. Intervention: Will start nutrition supplement of Ensure plus TID on meal trays once PO intake resumes and would recommend liquid protein supplement ordered TID to. If patient is expected to stay admitted for the next 5 days, enteral feeding support would be indicated if po intake continues to be poor. Monitoring/evaluation: Will follow closely to assess intake once npo order advances and approach patient to evaluate any additional barriers to meeting his needs orally. Rafael Daigle NDTR ? Inside Sales Coordinator Time Spent in Nutritional Counseling and Treatment: 0
--- NOTE | 2021-08-29 15:12 | W.ANESPOSTOP ---
Postoperative Evaluation Date, Time and Location Date Performed: 08/29/21 Time Performed: 15:10 Patient Location: PACU Vital Signs Most Recent Imported Vital Signs: Most Recent Vital Signs Temp Pulse Resp BP Pulse Ox 36.4 C L 91 H 11 L 123/84 96 08/29/21 15:05 08/29/21 15:05 08/29/21 15:05 08/29/21 15:05 08/29/21 15:05 Pain Score Most Recent Pain Score: Most Recent Pain Score Pain Level 0 08/29/21 15:05 Assessment Mental Status: Awake (Alert & Oriented to Patient Baseline) Airway and Respiratory Function: Patent airway with normal (patient baseline) respiratory exam Cardiovascular Function: Hemodynamically Stable Hydration Status: Adequately Hydrated Nausea & Vomiting: No Nausea or Vomiting Pain: Pain is tolerable per patient Peripheral Nerve Block: Patient did not receive a nerve block
--- NOTE | 2021-08-29 15:15 | W.PM.PROGNOT ---
Date of Service Date of service: 08/29/21 Time of Service: 14:15 Assessment and Plan Assessment and plan (1) Fracture of femoral neck, right: Status: Acute Assessment and plan: 80-year-old male postop day #0 status post right Hip hemiarthroplasty Complete 24 hours postoperative antibiotics Discontinue Jackson catheter postop day #1 if hemodynamically stable Pain control-Multimodal Physical therapy ordered: Weightbearing as tolerated with assist device. Avoid deep hip flexion with internal rotation and/or adduction for 8 weeks. May start chemical DVT prophylaxis tomorrow assuming no concerns for blood loss anemia: Aspirin 81 mg twice daily x30 days ordered Continue mechanical DVT prophylaxis with SCDs and/or NAYELY hose I will see the patient tomorrow Discharge home when medical appropriate Follow-up with Dr. Bunn outpatient [facility] in 2 to 3 weeks Appreciate medical management. Discussed with primary medical team Qualifiers: Encounter type: initial encounter Fracture type: closed Qualified Code(s): S72.001A - Fracture of unspecified part of neck of right femur, initial encounter for closed fracture Subjective Subjective Interval history since last seen: No significant complaints Exam Narrative Exam Narrative: Moderate discomfort still getting comfortable in PACU. Right lower extremity within a few millimeters of equal leg lengths. Tolerates gentle range of motion about the hip without undue difficulty. No signs of compartment syndrome. Dressing clean dry intact. Objective Last Vital Signs Temp 99.9 F H 08/29/21 08:05 Pulse 109 H 08/29/21 08:05 Resp 17 08/29/21 08:05 BP 126/79 08/29/21 08:05 Pulse Ox 92 08/29/21 08:05 Laboratory Results - last 24 hr 08/28/21 08/28/21 08/28/21 14:45 14:45 15:00 WBC 7.37 RBC 3.74 L Hgb 12.3 L Hct 36.6 L MCV 97.9 H MCH 32.9 MCHC 33.6 RDW 12.3 Plt Count 186 MPV 10.2 Immature Gran % 0.3 Neutrophils % 76.9 Lymphocytes % 11.8 Monocytes % 8.4 Eosinophils % 2.2 Basophils % 0.4 Nucleated RBC % 0 Absolute Neutrophils 5.67 Absolute Lymphocytes 0.87 L Absolute Monocytes 0.62 Absolute Eosinophils 0.16 Absolute Basophils 0.03 PT 11.5 H INR 1.1 APTT 23.7 Sodium 136 Potassium 3.6 Chloride 102 Carbon Dioxide 29.2 Anion Gap 4.8 BUN 11 Creatinine 1.0 Estimated GFR/1.73 m2 >= 60.00 Glucose 142 H Calcium 8.2 L Magnesium 1.7 L Total Bilirubin 0.5 AST 29 ALT 18 Alkaline Phosphatase 80 Troponin I < 0.05 Total Protein 6.9 Albumin 2.8 L COVID-19 Source SARS-CoV-2 (PCR) 08/28/21 08/28/21 08/29/21 15:20 17:35 06:54 WBC RBC Hgb Hct MCV MCH MCHC RDW Plt Count MPV Immature Gran % Neutrophils % Lymphocytes % Monocytes % Eosinophils % Basophils % Nucleated RBC % Absolute Neutrophils Absolute Lymphocytes Absolute Monocytes Absolute Eosinophils Absolute Basophils PT INR APTT Sodium 137 Potassium 3.9 Chloride 104 Carbon Dioxide 29.4 Anion Gap 3.6 BUN 11 Creatinine 0.9 Estimated GFR/1.73 m2 >= 60.00 Glucose 96 Calcium 8.1 L Magnesium 1.6 L Total Bilirubin AST ALT Alkaline Phosphatase Troponin I < 0.05 Total Protein Albumin COVID-19 Source Nasal/Nares SARS-CoV-2 (PCR) Negative 08/29/21 06:54 WBC 6.79 RBC 3.79 L Hgb 12.3 L Hct 37.4 L MCV 98.7 H MCH 32.5 MCHC 32.9 RDW 12.4 Plt Count 187 MPV 10.6 Immature Gran % 0.3 Neutrophils % 73.9 Lymphocytes % 12.8 Monocytes % 10.0 Eosinophils % 2.7 Basophils % 0.3 Nucleated RBC % 0 Absolute Neutrophils 5.02 Absolute Lymphocytes 0.87 L Absolute Monocytes 0.68 Absolute Eosinophils 0.18 Absolute Basophils 0.02 PT INR APTT Sodium Potassium Chloride Carbon Dioxide Anion Gap BUN Creatinine Estimated GFR/1.73 m2 Glucose Calcium Magnesium Total Bilirubin AST ALT Alkaline Phosphatase Troponin I Total Protein Albumin COVID-19 Source SARS-CoV-2 (PCR)
--- NOTE | 2021-08-29 15:23 | W.PM.OP ---
Date of service: 08/29/21 Time of Service: 12:00 Operative Note Operative Note DATE OF PROCEDURE: 08/29/21 PRE-OP DIAGNOSIS: Right displaced femoral neck fracture POST-OP DIAGNOSIS: same PROCEDURE: Right posterior hip hemiarthroplasty SURGEON: Jose Bunn OFFICE MACHINE EMBOSSOGRAPH OPERATOR: Meghana Angel ANESTHESIA TYPE: Local By Surgeon and General LMA/ETT Refer to Anesthesia Record ESTIMATED BLOOD LOSS: 75 COMPLICATIONS: None Patient was transported to: PACU Patient's condition: stable Implants: DePuy Meagher cemented femoral stem size 5 with 56 mm unipolar head +5 mm length Indications: Please see complete medical record for details. Findings: Severely comminuted femoral neck fracture. Procedure Description: In the operating room, general anesthesia was induced. The patient was transferred and positioned laterally on the operating room table. All bony prominences were well-padded. Preoperative antibiotics were administered as well as 1 g of TXA. The right hip was prepped and draped in the usual sterile fashion. The correct patient, procedure, and side of the procedure were all verified prior to incision. The posterior lateral approach to left hip was utilized. 30 cc of 0.5% bupivacaine containing epinephrine was infiltrated about the incision. Deeply, care was taken to protect the sciatic nerve. The short external rotators and capsule were reflected off the femoral neck and tagged for retraction and later repair. The femoral neck fracture was cleaned with a rongeur to an appropriate length and to match the desired implant. The femoral head was removed from the acetabulum and measured on the back table. Labrum was preserved. All bony debris was removed from the wound. The proximal femoral canal was sequentially opened, reamed, and broached with the appropriate lateralization and anteversion until there was a solid fit. Size 5 stem was slightly countersunk, but size 6 was too proud. Trial reduction with a standard offset +0 mm length head demonstrated good suction seal and reasonable stability throughout physiologic range of motion. The trial implants were removed. The proximal femur acetabular copiously irrigated. 1 g vancomycin powder was distributed deeply. The standard offset size 5 femoral stem was then impacted to the appropriate depth with excellent stability and rotational control of the proximal femur. Trialing was done again with +0 mm and although there was excellent suction seal and reasonable stability of the tension and leg lengths were felt to be slightly short. Trialing was then done with plus a 5 mm taper and demonstrated excellent stability through supraphysiologic range of motion including vulnerable positions. There was appropriate spring on the quadriceps with knee extension. Trial head was then removed, trunnion dried, and final impacted and hip reduced one last time with excellent stability and leg lengths confirmed. The short external rotators were repaired using #2 FiberWire and suture tape through 3 bone tunnels in the greater trochanter. Proximally the piriformis and gluteus medius were reapproximated with suture tape as well. Distally the IT band was closed using buried suture tape single [id number]. More distally there is minimal defect closed with 0 Vicryl [id number]. Approximately the gluteus gladys muscle fascia was closed with 0 Vicryl running fashion. The superficial wound was irrigated with normal saline. Subcutaneous tissue was closed using 2-0 Monocryl in a buried interrupted fashion. Skin was closed using 3-0 Monocryl in a buried subcuticular buried fashion. Skin was sealed with skin glue. A silver impregnated bandage was applied over the wound. The patient awoke from anesthesia without complication and was transferred to the recovery room in a stable condition.
[2021-08-29] MEDS: ceFAZolin 1 GM/50 ML BAG IVPB (16:59)
[2021-08-29] MEDS: MAGNESIUM SULFATE 4 GM/100 ML BAG IVPB (17:35)
--- NOTE | 2021-08-29 18:59 | PDOC.CMIN ---
- If Service Date Differs Date of service: 08/29/21 Time of Service: 19:00 Care Management Initial Assess REASON FOR HOSPITALIZATION:: right femoral neck fracture PAST MEDICAL HISTORY/PAST SURGICAL HISTORY:: All Active Problems. DVT prophylaxis (Acute). Discharge planning issues (Acute). Closed fracture of neck of right femur (Acute). Fracture of femoral neck, right (Acute 08/28/21). Diarrhea (Acute). Weight loss (Acute). 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 Irregular heart beat (Acute). Elevated alkaline phosphatase level (Acute). Insomnia (Acute). Tobacco abuse (Acute). Peripheral vascular disease (Chronic 07/28/14). Essential hypertension (Chronic 07/10/13). Chronic obstructive pulmonary disease (COPD) (Chronic 07/28/14). Benign prostate hyperplasia (Chronic 07/28/14). Medical History. BPH (benign prostatic hyperplasia). HTN (hypertension). Neck pain (07/11/13). 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 Polyp of colon. Surgical History. Colonoscopy - MAC. 2002. 2012 N/L. History of cataract surgery. Status post angioplasty. PV left side PREVIOUS FUNCTIONAL STATUS/SOCIAL/FAMILY SUPPORTS:: Dave lives in [place] with his significant other, Sheyla. They are not , but have been together for over thirty years. He reports that he is independent at baseline. CURRENT FUNCTIONAL STATUS:: Dave was in the OR most of the day. CM met with him later in the day, as he was eating his dinner. He reported that he has some pain, but his RN had given him some medication for it. He has not been evaluated by PT, but CM discussed discharge options and he reported that he is not agreeable to SNF or HH. He stated that he cannot hear well, and his ears were ringing, so CM will discuss this further tomorrow. CM will continue to follow. ADVANCE DIRECTIVES:: Not on file at [facility]. Has patient been provided with info about the portal/API?: No Did the patient sign up for the portal?: No CODE STATUS:: Full Code INSURANCE COVERAGE / FINANCIAL ISSUES:: [facility]/ [employer]ARP CURRENT HOME/COMMUNITY SERVICES/EQUIPMENT:: No current services. PRIMARY CARE PHYSICIAN:: Adina Mcallister POTENTIAL DISCHARGE NEEDS:: Evaluations for further needs, follow up appointments. PATIENT/FAMILY EDUCATION NEEDS:: Review discharge instructions regarding activity levels and medications, discussion of self care needs and goals of care. ANTICIPATED BARRIERS TO DISCHARGE:: None identified. TRANSPORTATION:: Via private vehicle by s/o. PLAN:: Anticipate Dave will return home when medically cleared. His S/O, Sheyla, will drive him home via private vehicle. He will follow up with Ortho, his PCP and discharge plan of care. CM will continue to follow.
[2021-08-29] MEDS: Acetaminophen 325 MG TAB PO (20:26)
[2021-08-29 20:51] LABS: Creatine Kinase 79 U/L (39-308)
[2021-08-29] MEDS: Magnesium Oxide 400 MG TAB PO (22:53)
[2021-08-30] MEDS: ceFAZolin 1 GM/50 ML BAG IVPB ×2 (00:16→08:04)
[2021-08-30 00:30] VITALS: BP 109/62; PULSE 88; RESP 18; TEMP 37.3; O2SAT 90
[2021-08-30] MEDS: MORPHine 4 MG/ML SYR IVP ×2 (05:32→08:07)
[2021-08-30] MEDS: Lactated Ringers 1,000 ML 75 ML IV (05:35)
[2021-08-30 07:27] VITALS: BP 115/66; PULSE 114; RESP 18; TEMP 37.2; O2SAT 84
[2021-08-30 07:35] VITALS: O2SAT 92
[2021-08-30] MEDS: Lisinopril 10 MG TAB 30 MG PO (08:06)
[2021-08-30] MEDS: Omeprazole 20 MG CAPCR PO (08:07)
[2021-08-30] MEDS: Normal Saline Flush 10 ML SYR IVP (08:07)
[2021-08-30] MEDS: Tamsulosin 0.4 MG CAPCR PO (08:07)
[2021-08-30 10:02] LABS: Abs Immature Grans 0.02 10^3/uL (0.0-0.06); Absolute Basophil Count 0.03 10^3/uL (0.0-0.2); Absolute Eosinophil Count 0.05 10^3/uL (0.0-0.7); Absolute Lymphocyte Count 1.09 10^3/uL (1.2-3.4); Absolute Monocyte Count 0.98 10^3/uL (0.1-0.8); Basophils % 0.3; Eosinophils % 0.5; HCT 31.9 % (40.0-50.0); HGB 10.5 g/dL (13.5-17.5); Immature Grans % 0.2; Lymphocytes % 11.1; MCH 32.5 pg (27.0-33.0); MCHC 32.9 % (32.0-36.0); MCV 98.8 fL (80-95); MPV 10.5 fL (8.0-11.0); Neutrophils % 77.9; Nucleated RBC 0 %; Platelet Count 186 10^3/uL (130-400); RBC 3.23 10^6/uL (4.36-5.78); RDW 12.5 % (11.8-14.1); RDW-SD 45.3 fL; WBC 9.79 10^3/uL (4.4-10.8)
[2021-08-30 10:05] LABS: Absolute Neutrophil Count 7.63 10^3/uL (1.2-6.7)
[2021-08-30 10:15] LABS: BUN 15 mg/dL (7-18); Chloride 103 mmol/L (98-107); Glucose 102 mg/dL (74-106); Sodium 137 mmol/L (136-145)
[2021-08-30] MEDS: oxyCODONE 5 mg/Acetaminophen 325 mg TAB 2 TAB PO (11:48)
--- NOTE | 2021-08-30 13:05 | PT.INIE ---
Date of service: 08/30/21 Time of Service: 13:05 PT Notes Visit Reasons: Right Femoral Neck Fracture Physical Therapy Inpatient Initial Evaluation Date: 08/30/2021 Referring Doctor: Jose Bunn MD PT Orders: PT CONSULT: Status post Ortho surgery. WBAT with assistive device. Precautions: Fall. Standard. WBAT on right LE with AD. On hip precautions: no deep hip flexion with internal rotation and/or adduction for 8 weeks. [place] [place]. Patient Profile/Admitting Diagnosis: Dave is an 80-year-old male who presented to the ED on 08/28/2021 due to a fall at home. Patient is diagnosed with right displaced femoral neck fracture and is status post right hip hemiarthroplasty on postoperative day 1. 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) Irregular heart beat (Acute) Elevated alkaline phosphatase level (Acute) Insomnia (Acute) Tobacco abuse (Acute) Peripheral vascular disease (Chronic 07/28/14) Essential hypertension (Chronic 07/10/13) Chronic obstructive pulmonary disease (COPD) (Chronic 07/28/14) Benign prostate hyperplasia (Chronic 07/28/14) Medical History BPH (benign prostatic hyperplasia) HTN (hypertension) Neck pain (07/11/13) 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 Has 13 steps to the basement which patient states he does not need to use. Equipment Owned/DME: FWW Subjective: Refused to be seen early this morning due to high pain level and lack of sleep. MD updated. Nurse Sand Slinger Operator Layne and Nurse Paulie planned to premedicate patient after lunch today in preparation for PT evaluation which patient agreed to after Nurse Sand Slinger Operator Layne spoke with him. Agreeable to PT consult with second attempt later this afternoon. Reports pain in the right hip at 6?7/10 pain with weight bearing. Objective: General Observation: Supine in bed. Mepilex Ag over surgical incision. Mental Status: Alert and oriented as to person, place, time, and purpose. Appeared exhausted and in mild distress due to pain level and lack of sleep. Pain: 6?7/10 in right hip Vital Signs: Within normal limits as monitored by nursing staff ROM: Right Upper Extremity: Shoulder Flexion WFL. Shoulder abduction WFL. Elbow flexion WFL. Wrist flexion WFL. Functional opening and closing of hand WFL. Left Upper Extremity: Shoulder Flexion WFL. Shoulder abduction WFL. Elbow flexion WFL. Wrist flexion WFL. Functional opening and closing of hand WFL. Right Lower Extremity: Hip flexion allows up to 90 degrees, limited due to movement precautions. Hip abduction WFL. Able to adduct to midline, limited by movement precautions. HIp IR to neutral only due to movement precaution. Knee flexion WFL. Ankle dorsiflexion to neutral only. Ankle plantarflexion WFL. Left Lower Extremity: Hip flexion WFL. Hip abduction WFL. Knee flexion WFL. Ankle dorsiflexion to neutral only. Ankle plantarflexion WFL. Strength: Right Upper Extremity: Shoulder flexors 4-/5. Shoulder abductors 4-/5. Elbow flexors 4-/5. Elbow extensors 4-/5. Geographic Information Systems Analyst strong. Left Upper Extremity: Shoulder flexors 4-/5. Shoulder abductors 4-/5. Elbow flexors 4-/5. Elbow extensors 4-/5. Geographic Information Systems Analyst strong. Right Lower Extremity: Hip flexors NT due to pain. Hip abductors NT due to pain. Knee flexors 5/5. Knee extensors NT due to pain. Ankle dorsiflexors 4-/5. Ankle plantarflexors 4-/5. Left Lower Extremity: Hip flexors 3+/5. Hip abductors 3+/5. Knee flexors 3+5/5. Knee extensors 3+5. Ankle dorsiflexors 3-/5. Ankle plantarflexors 3-/5. Bed Mobility/Transfers: Rolling minimal assist Supine to sit minimal assist Sit to supine minimal assist Sit to stand minimal assist Stand to sit contact guard assist Bed to reclining chair minimal assist Gait: Instructed patient with level surface ambulation of 100 feet requiring contact guard assist. Gisselle decreased. Step height on the R decreased. Step length on the R decreased. Gait antalgic. Reported mild dizziness towards the end of ambulation that resolved with rest. Balance: Static Sitting: Good Dynamic Sitting: Fair Static Standing: Fair Dynamic Standing: Fair Special Tests: Mobility Limitations Standardized Measure [facility] AM-PAC 6 clicks Basic Mobility Inpatient Short Form: Raw Score: 18 CMS Score: 47% deficit Informed Consent/Education: Patient was instructed in purpose of PT consult and plan of care. Agreeable to proceed with established PT POC to achieve personal goals. Assessment: Significant functional mobility decline needing the use of the front-wheeled walker and the assistance of 1 person for all functional mobility performance, decreased strength, and increased risk for falls. Patient presents with clinical signs and symptoms consistent with current/admitting diagnoses that have resulted to mobility limitations, gait instability, generalized weakness, and overall ADL decline as demonstrated by the following impairment level findings: 1. Decreased strength to B UE/LE major muscle groups 2. Impaired sitting/standing balance 3. Impaired activity tolerance 4. Limitation of joint range of motion in R hip and knee 5. Pain in R hip with weight bearing Impairments are contributing to the following functional limitations: 1. Decline in bed mobility skills 2. Decline in transfer skills 3. Difficulty with ambulation without assistive device and physical assistance 4. Increased completion time for mobility ADL performance 5. Increased risk for falls 6. Difficulty with managing steps alone safely Patient is assessed as a 10612 moderate complexity based on the following: History: 80-year-old female with past medical history as indicated above Examination: Demonstrable impairment in strength, balance, and mobility level with underlying impairments and functional limitations as exhibited above as well as deficit score of 47% utilizing the [facility] Mobility Inpatient Short Form Presentation: Evolving Decision Makin moderate complexity Goals: Goals X1 week 1. Supine-Sit independent 2. Sit-Supine independent 3. Sit-Stand independent 4. Stand-Sit independent with FWW 5. Bed-Chair independent with FWW 6. Chair-Bed independent with FWW 7. Independent gait on level surface with use of FWW for at least 300 feet without report of pain nor dyspnea 8. Independent stair negotiation while holding onto B rails for at least 10 steps without report of pain nor dyspnea 9. Good static and dynamic standing balance/tolerance Plan of Care/Treatment Plan: 1-2x/day, 7 days/week x 1 week. Plan of care has been reviewed with the CHILD AND ADOLESCENT THERAPIST providing the service under Physical Therapy direction. Initiate Physical Therapy intervention for pain management as needed, strengthening, bed mobility, transfers, gait, stairs, balance training, and use of assistive device. DISCHARGE RECOMMENDATIONS: [] Home with no services [] [X] Home with services. Patient will benefit from home health PT services in order to progress mobility level using least restrictive assistive ambulatory device, assess home safety, identify additional equipment needs, and establish a functional maintenance program that will increase ability of patient to remain at home. Will need FWW at home. [] Home with outpatient PT [] [] SNF for continued rehabilitation [] [] Intermediate Care [] [] SNF versus LTC based on ability to participate and progress [] TREATMENT CODE/TIME: 88634 x 25 minutes beginning at 13:05 PM. Thank you for the opportunity to participate in the care of this patient. Abeba Cates PT, DPT, CLT [facility] [place], [place]
--- NOTE | 2021-08-30 13:14 | W.PM.PROGNOT ---
Date of Service Date of service: 08/30/21 Time of Service: 13:18 Assessment and Plan Assessment and plan (1) Fracture of femoral neck, right: Status: Acute Assessment and plan: 80-year-old male postop day #1 status post right Hip hemiarthroplasty Complete 24 hours postoperative antibiotics Optimize pain control-Multimodal Advance with physical therapy: Weightbearing as tolerated with assist device. Avoid deep hip flexion with internal rotation and/or adduction for 8 weeks. May start chemical DVT prophylaxis tomorrow assuming no concerns for blood loss anemia: Aspirin 81 mg twice daily x30 days unless prolonged inpatient status anticipated and then would switch to Lovenox Continue mechanical DVT prophylaxis with SCDs and/or NAYELY hose Discharge home when appropriate Follow-up with Dr. Bunn outpatient [facility] in 2 to 3 weeks Appreciate medical management. Discussed with primary medical team. Qualifiers: Encounter type: initial encounter Fracture type: closed Qualified Code(s): S72.001A - Fracture of unspecified part of neck of right femur, initial encounter for closed fracture Subjective Subjective Interval history since last seen: No complaints except right hip pain. Exam Narrative Exam Narrative: No discomfort at this time. Describes earlier significant discomfort about the right hip. Right hip dressing clean dry intact. Right thigh compartment soft. Distally neurovascularly intact Tolerates gentle circumduction of the hip without difficulty. Unable to demonstrate or maintain straight leg raise due to pain. Objective Last Vital Signs Temp 99.0 F 08/30/21 07:27 Pulse 114 H 08/30/21 07:27 Resp 18 08/30/21 07:27 BP 115/66 08/30/21 07:27 Pulse Ox 92 08/30/21 07:35 Laboratory Results - last 24 hr 08/29/21 08/30/21 08/30/21 06:54 09:46 09:46 WBC 9.79 D RBC 3.23 L Hgb 10.5 L Hct 31.9 L MCV 98.8 H MCH 32.5 MCHC 32.9 RDW 12.5 Plt Count 186 MPV 10.5 Immature Gran % 0.2 Neutrophils % 77.9 Lymphocytes % 11.1 Monocytes % 10.0 Eosinophils % 0.5 Basophils % 0.3 Nucleated RBC % 0 Absolute Neutrophils 7.63 H Absolute Lymphocytes 1.09 L Absolute Monocytes 0.98 H Absolute Eosinophils 0.05 Absolute Basophils 0.03 Sodium 137 Potassium 4.0 Chloride 103 Carbon Dioxide 30.0 Anion Gap 4.0 BUN 15 Creatinine 1.0 Estimated GFR/1.73 m2 >= 60.00 Glucose 102 Calcium 8.0 L Creatine Kinase 79
--- NOTE | 2021-08-30 15:20 | PGE_ITS ---
Date of Service Date of service: 08/30/21 Time of Service: 10:40 Assessment and Plan Assessment and plan (1) Closed fracture of neck of right femur: Start date: 08/30/21 Start time: 10:40 Status: Deleted Assessment and plan: POD 1. Initially refused to work with PT, however then agreed Pain managed with multiple analgesics ASA started Jackson dcd Did not allow examination Qualifiers: Encounter type: initial encounter Qualified Code(s): S72.001A - Fracture of unspecified part of neck of right femur, initial encounter for closed fracture (2) Peripheral vascular disease: Start date: 08/30/21 Start time: 10:40 Status: Chronic Assessment and plan: Recommend smoking cessation. at this time not interested in quiting. (3) Essential hypertension: Start date: 08/30/21 Start time: 10:40 Status: Chronic Assessment and plan: continue lisinopril (4) Chronic obstructive pulmonary disease (COPD): Start date: 08/30/21 Start time: 10:40 Status: Chronic Assessment and plan: not exacerbated at this time Qualifiers: COPD type: emphysema Emphysema type: panlobular Qualified Code(s): J43.1 - Panlobular emphysema (5) Benign prostate hyperplasia: Status: Chronic Assessment and plan: Continue tamsulosin (6) Tobacco abuse: Start date: 08/30/21 Start time: 10:40 Status: Acute Assessment and plan: as above nicotine replacement as needed (7) DVT prophylaxis: Start date: 08/30/21 Start time: 10:40 Status: Acute Assessment and plan: teds and scds, ASA started by ortho (8) Discharge planning issues: Start date: 08/30/21 Start time: 10:40 Status: Acute Assessment and plan: Patient will be evaluated by PT. SNIF vs rehab discussed with Dr. Calixto Subjective Subjective Patient reports: other Interval history since last seen: Patient refused care, kicked provider out, however after having Charge nurse and myself and nurse speak with patient he became cooperative. He is [employer] and needs to be spoken to in a louder voice. He was in pain did not want to cooperate, refused exam, He was willing to talk. He wanted catheter out. Catheter dcd, Pain management was improved to percocet and IM morphine as he pulled his IV out. He did agree after to work with PT. Exam Narrative Exam Narrative: Refused exam. However appeared to be in pain, NAD. nonlabored breathing. Objective Last Vital Signs Temp 37.2 C 08/30/21 07:27 Pulse 114 H 08/30/21 07:27 Resp 18 08/30/21 07:27 BP 115/66 08/30/21 07:27 Pulse Ox 92 08/30/21 07:35 Laboratory Results - last 24 hr 08/29/21 08/30/21 08/30/21 06:54 09:46 09:46 WBC 9.79 D RBC 3.23 L Hgb 10.5 L Hct 31.9 L MCV 98.8 H MCH 32.5 MCHC 32.9 RDW 12.5 Plt Count 186 MPV 10.5 Immature Gran % 0.2 Neutrophils % 77.9 Lymphocytes % 11.1 Monocytes % 10.0 Eosinophils % 0.5 Basophils % 0.3 Nucleated RBC % 0 Absolute Neutrophils 7.63 H Absolute Lymphocytes 1.09 L Absolute Monocytes 0.98 H Absolute Eosinophils 0.05 Absolute Basophils 0.03 Sodium 137 Potassium 4.0 Chloride 103 Carbon Dioxide 30.0 Anion Gap 4.0 BUN 15 Creatinine 1.0 Estimated GFR/1.73 m2 >= 60.00 Glucose 102 Calcium 8.0 L Creatine Kinase 79
[2021-08-30 16:39] VITALS: BP 107/62; PULSE 99; RESP 19; TEMP 37.2; O2SAT 90
--- NOTE | 2021-08-30 18:51 | PDOC.CMPRO ---
- If Service Date Differs Date of service: 08/30/21 Time of Service: 18:52 Care Management Progress Note S/O: Dave was sitting up in bed when CM met with him. He reported that he has been in pain, but his RN has been checking on him frequently. Per PT, he is not yet ready to return home, and he was complaining of pain during the evaluation as well. Dave stated that he is not agreeable to short term rehab. CM will discuss services, if indicated by MD/PT. CM will continue to follow. A: Dave is an 80 year old male admitted to [facility] on 08/28/21 with a right femoral neck fracture. P: Anticipate Dave will return home when medically cleared. His S/O, Sheyla, will drive him home via private vehicle. He will follow up with Ortho, his PCP and discharge plan of care. CM will continue to follow.
[2021-08-30] MEDS: Magnesium Oxide 400 MG TAB PO (21:46)
[2021-08-30] MEDS: oxyCODONE 5 mg/Acetaminophen 325 mg TAB PO (21:46)
[2021-08-31 01:18] VITALS: BP 111/69; PULSE 103; RESP 17; TEMP 36.5; O2SAT 94
[2021-08-31] MEDS: oxyCODONE 5 mg/Acetaminophen 325 mg TAB PO ×2 (04:41→11:43)
[2021-08-31] MEDS: Naproxen 250 MG TAB PO ×2 (04:41→15:09)
[2021-08-31 07:10] VITALS: BP 102/62; PULSE 85; RESP 15; TEMP 36.2; O2SAT 96
[2021-08-31] MEDS: Acetaminophen 325 MG TAB PO ×2 (07:50→15:09)
[2021-08-31] MEDS: Omeprazole 20 MG CAPCR PO (07:51)
[2021-08-31] MEDS: Tamsulosin 0.4 MG CAPCR PO (07:51)
[2021-08-31] MEDS: Lisinopril 10 MG TAB 30 MG PO (07:51)
--- NOTE | 2021-08-31 09:35 | PT.INDS ---
Date of service: 08/31/21 Time of Service: 09:35 PT Notes Visit Reasons: Right Femoral Neck Fracture Physical Therapy Inpatient Discharge Summary Date: 08/31/2021 Dates of service: 08/30/2021 through 08/31/2021 physical Therapy Inpatient Discharge Summary Referring Doctor: Jose Bunn MD PT Orders: PT CONSULT: Status post Ortho surgery. WBAT with assistive device. Precautions: Fall. Standard. WBAT on right LE with AD. On hip precautions: no deep hip flexion with internal rotation and/or adduction for 8 weeks. [place]. Patient Profile/Admitting Diagnosis: Dave is an 80-year-old male who presented to the ED on 08/28/2021 due to a fall at home. Patient is diagnosed with right displaced femoral neck fracture and is status post right hip hemiarthroplasty on postoperative day 2. 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) Irregular heart beat (Acute) Elevated alkaline phosphatase level (Acute) Insomnia (Acute) Tobacco abuse (Acute) Peripheral vascular disease (Chronic 07/28/14) Essential hypertension (Chronic 07/10/13) Chronic obstructive pulmonary disease (COPD) (Chronic 07/28/14) Benign prostate hyperplasia (Chronic 07/28/14) Medical History BPH (benign prostatic hyperplasia) HTN (hypertension) Neck pain (07/11/13) 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 Has 13 steps to the basement which patient states he does not need to use. Equipment Owned/DME: FWW Subjective: Agreeable to today's session. Pleasant and cooperative. Objective: General Observation: Mepilex Ag over surgical incision. Mental Status: Alert and oriented as to person, place, time, and purpose. Appeared exhausted and in mild distress due to pain level and lack of sleep. Pain: Denies Vital Signs: Within normal limits as monitored by nursing staff ROM: Right Upper Extremity: Shoulder Flexion WFL. Shoulder abduction WFL. Elbow flexion WFL. Wrist flexion WFL. Functional opening and closing of hand WFL. Left Upper Extremity: Shoulder Flexion WFL. Shoulder abduction WFL. Elbow flexion WFL. Wrist flexion WFL. Functional opening and closing of hand WFL. Right Lower Extremity: Hip flexion allows up to 90 degrees, limited due to movement precautions. Hip abduction WFL. Able to adduct to midline, limited by movement precautions. HIp IR to neutral only due to movement precaution. Knee flexion WFL. Ankle dorsiflexion to neutral only. Ankle plantarflexion WFL. Left Lower Extremity: Hip flexion WFL. Hip abduction WFL. Knee flexion WFL. Ankle dorsiflexion to neutral only. Ankle plantarflexion WFL. Strength: Right Upper Extremity: Shoulder flexors 4-/5. Shoulder abductors 4-/5. Elbow flexors 4-/5. Elbow extensors 4-/5. Food Service Hotel Runner strong. Left Upper Extremity: Shoulder flexors 4-/5. Shoulder abductors 4-/5. Elbow flexors 4-/5. Elbow extensors 4-/5. [employer] Service Hotel Runner strong. Right Lower Extremity: Hip flexors NT due to pain. Hip abductors NT due to pain. Knee flexors 5/5. Knee extensors NT due to pain. Ankle dorsiflexors 4-/5. Ankle plantarflexors 4-/5. Left Lower Extremity: Hip flexors 3+/5. Hip abductors 3+/5. Knee flexors 3+5/5. Knee extensors 3+5. Ankle dorsiflexors 3-/5. Ankle plantarflexors 3-/5. Bed Mobility/Transfers: Rolling supervision Supine to sit supervision Sit to supine supervision Sit to stand supervision Stand to sit supervision Bed to reclining chair supervision Gait: Instructed patient with level surface ambulation of 100 feet requiring contact guard assist. Gisselle decreased. Step height on the R decreased. Step length on the R decreased. Gait antalgic. Reported mild dizziness towards the end of ambulation that resolved with rest. Balance: Static Sitting: Good Dynamic Sitting: Fair Static Standing: Fair Dynamic Standing: Fair Assessment: Dave continues to require the use of the front-wheeled walker for all functional mobility performance, decreased strength, and increased risk for falls. Patient presents with clinical signs and symptoms consistent with current/admitting diagnoses that have resulted to mobility limitations, gait instability, generalized weakness, and overall ADL decline as demonstrated by the following impairment level findings: 1. Decreased strength to B UE/LE major muscle groups 2. Impaired sitting/standing balance 3. Impaired activity tolerance 4. Limitation of joint range of motion in R hip and knee Impairments are contributing to the following functional limitations: 1. Decline in bed mobility skills 2. Decline in transfer skills 3. Difficulty with ambulation without assistive device and physical assistance 4. Increased completion time for mobility ADL performance 5. Increased risk for falls 6. Difficulty with managing steps alone safely Goals: Goals X1 week 1. Supine-Sit independent NOT MET 2. Sit-Supine independent NOT MET 3. Sit-Stand independent NOT MET 4. Stand-Sit independent with FWW NOT MET 5. Bed-Chair independent with FWW NOT MET 6. Chair-Bed independent with FWW NOT MET 7. Independent gait on level surface with use of FWW for at least 300 feet without report of pain nor dyspnea NOT MET 8. Independent stair negotiation while holding onto B rails for at least 10 steps without report of pain nor dyspnea NOT MET 9. Good static and dynamic standing balance/tolerance NOT MET [] Home with no services [] [X] Home with services. Patient will benefit from home health PT services in order to progress mobility level using least restrictive assistive ambulatory device, assess home safety, identify additional equipment needs, and establish a functional maintenance program that will increase ability of patient to remain at home. Will need FWW at home. [] Home with outpatient PT [] [] SNF for continued rehabilitation [] [] [facility] [] [] SNF versus LTC based on ability to participate and progress [] TREATMENT CODE/TIME: 48766 x 26 minutes at 9:35 AM. Thank you for the opportunity to participate in the care of this patient. Abeba Cates PT, DPT, CLT [facility] [place], [place]
--- NOTE | 2021-08-31 14:33 | W.PM.DS.N ---
Date of service: 08/31/21 Time of Service: 14:33 DS: Diagnosis Discharge Diagnosis (1) Closed fracture of neck of right femur: Status: Deleted (2) Peripheral vascular disease: Status: Chronic (3) Essential hypertension: Status: Chronic (4) Chronic obstructive pulmonary disease (COPD): Status: Chronic (5) Benign prostate hyperplasia: Status: Chronic (6) Tobacco abuse: Status: Acute Discharge Plan Disposition Patient Disposition: HOME W/HOME HEALTH SERVICE Condition: Stable Discharge Details Reason For Visit: Right Femoral Neck Fracture Admit Date/Time: 08/28/21 16:29 Admit Provider: Foster Calixto Attending Provider: Foster Calixto Primary Care Provider: Adina Mcallister Hospital Course Hospital Course: This is a 80 year old male who experienced a mechanical fall at home with fracture to right hip. He underwent a right posterior hip hemiarthroplasty on 08/29 with no postoperative complications. He remained hemodynamically stable, not evidence of active bleeding, stable respiratory status and pain managed. He was reambulated safely with PT and deemed safe for discharge to home. He did decline inpatient rehabilitation prior to discharge home. case management following. Home health services referral placed. discharge discussed with DR Calixto Home Meds and New Rx's Prescriptions: New Acetaminophen [Tylenol] 650 - 1,000 mg PO Q4H PRN PRNQty: 0 RF: 0 naproxen 250 mg Tablet 250 - 500 mg PO BID PRN PRNQty: 0 RF: 0 oxycodone-acetaminophen 5-325 mg Tablet 1 - 2 tab PO Q4H PRN PRNQty: 12 RF: 0 aspirin 81 mg capsule 81 mg PO BID Qty: 60 RF: 0 Continued furosemide 20 mg tablet 20 mg PO DAILY Qty: 90 RF: 4 tamsulosin [Flomax] 0.4 mg capsule 0.4 mg PO DAILY Qty: 90 RF: 4 lisinopril 30 mg tablet 30 mg PO DAILY Qty: 90 RF: 4 Discharge Instructions Instructions: Hip Fracture (ED) Additional Instructions: Physical therapy ordered: Weightbearing as tolerated with assist device. Avoid deep hip flexion with internal rotation and/or adduction for 8 weeks. Chemical DVT prophylaxis: Aspirin 81 mg twice daily x30 days Stand Alone Forms: Nursing Discharge Form Referrals: Adina Mcallister NP [Primary Care Provider] - 09/15/21 11:40 am Jose Bunn MD [ [facility] STAFF PHYSICIAN] - 09/20/21 1:00 pm (2-3 weeks) Activity:: Activity as Tolerated Equipment/Supplies:: Walker Diet:: As Tolerated Discharge Orders Discharge Orders: Discharge Order (Routine); Ordered 08/31/21 Ordered By: Nohemy Sullivan Discharge Data Discharge Date/Time-TO BE ENTERED AT DEPARTURE: 08/31/21 15:58 DS: Summary Time Spent with Patient providing and/or coordinating discharge services: Greater than 30 minutes Status at Discharge Functional status at discharge: uses cane/walker Overall status at discharge: patient is progressing back to baseline Mental Status: mental status grossly normal Speech and Movement: speech and movement normal Mood: congruent mood Affect: normal affect Exam Const General: cooperative and frail appearing Orientation: alert, awake and oriented x3 Eyes Eyelids: eyelids normal Pupils: PERRL EOM: EOM intact bilaterally Neck Neck: normal visual inspection and no JVD Lymphatic: no lymphadenopathy noted Resp Effort & Inspection: normal respiratory effort Auscultation: clear to auscultation bilaterally Cardio Jugular venous pressure: no JVD Rhythm: regular rhythm Heart Sounds: S1 normal GI Auscultation: normal bowel sounds General: No CVA tenderness and deferred Skin Lesions: other (surgical wound not visualized, dressing intact, no surrounding erythema) Rashes: no rashes Neuro General: patient alert, patient awake and patient oriented x3 Cognition: normal cognition Speech: speech normal Gait: normal gait Extrem General: normal to inspection and no pedal edema Right lower extremity: full ROM Psych Mental Status: mental status grossly normal Speech and Movement: speech and movement normal Mood: congruent mood Affect: normal affect DS: Data Vitals/I&O Vitals and I&O: Vital Signs Temperature 36.2 C L 08/31/21 07:10 Temperature Source Tympanic 08/31/21 07:10 Pulse 85 08/31/21 07:10 Pulse Rhythm Regular 08/31/21 10:08 Pulse 98 H 08/28/21 18:01 Respiratory Rate 15 08/31/21 07:10 Respiratory Effort 08/31/21 10:08 Respiratory Depth Normal 08/31/21 10:08 Respiratory Pattern Normal 08/31/21 10:08 Blood Pressure 102/62 08/31/21 07:10 Blood Pressure Mean 100 08/28/21 18:01 Blood Pressure Position Sitting 08/28/21 14:31 Pulse Oximetry 96 08/31/21 07:10 Respiratory End-tidal CO2 32 08/29/21 15:05 Oxygen Delivery Method Room Air 08/31/21 07:10 Oxygen Flow Rate 0 08/31/21 07:10 Pain Level 3 08/31/21 12:43 Comment 08/30/21 23:40 Intake & Output 08/30/21 08/31/21 08/31/21 23:59 11:59 23:59 Intake Total 240 / 810 Output Total 125 / 425 Balance 115 / 385 Intake: Oral 240 / 240 Output: Urine 125 / 425 Other: Urine Color Straw Yellow Urine Appearance Hematuria Clear Urine Odor Normal Comment small amount of urine, urine slightly bloody Voiding Methods Toilet Toilet Toilet PFSH All Active Problems (Updated 08/29/21 @ 13:59 by Jose Bunn MD) DVT prophylaxis (Acute) Discharge planning issues (Acute) Fracture of femoral neck, right (Acute 08/28/21) Diarrhea (Acute) Weight loss (Acute) 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) Irregular heart beat (Acute) Elevated alkaline phosphatase level (Acute) Insomnia (Acute) Tobacco abuse (Acute) Peripheral vascular disease (Chronic 07/28/14) Essential hypertension (Chronic 07/10/13) Chronic obstructive pulmonary disease (COPD) (Chronic 07/28/14) Benign prostate hyperplasia (Chronic 07/28/14) Medical History BPH (benign prostatic hyperplasia) HTN (hypertension) Neck pain (07/11/13) 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 Social History Smoking/Tobacco Use Status: Current every day Tobacco Type: cigarettes Quit status: considering quitting Smoking risk assessment performed?: Yes Alcohol Intake: current Alcohol Intake frequency: 0-2 drinks per day Alcohol type: beer Drug use: Never Substance use type: painkillers Details: 2 beers a day. Household members: significant other Communication Needs: Hard of Hearing Pets and animals: No Sexually active: No Current gender identity: decline to answer What is your relationship status?: living with partner How often do you talk on the phone with friends or family?: decline to answer How often do you get together with friends or relatives?: decline to answer How often do you attend hinduism or cheondoism services?: decline to answer Do you belong to any clubs or organized social groups?: decline to answer Panel score (0-1 are the most socially isolated patients): 1 What type of physical activity do you participate in: decline to answer Duration: decline to answer Frequency: decline to answer Tiffany/Baptist: None Special tiffany needs: No Seatbelt use: always Drive intox or ride w/intox commercial front load driver: No Do you feel safe at home: Yes Do you feel safe in your relationship?: Yes
--- NOTE | 2021-08-31 18:35 | PDOC.CMDIS ---
- If Service Date Differs Date of service: 08/31/21 Time of Service: 18:35 LACE Index Scoring Tool - Questions: Length of Stay (in days): 3 Acuity (Admit via E.D.?): Yes Comorbidities: Chronic Pulmonary Disease E.D. Visits: 1 - Answers: Total Score: 9 Risk of Readmission: Low Risk Care Management Discharge Reason for Hospitalization: right femoral neck fracture Discharge Plan: Dave returned home today with new orders for HH PT, OT. His drove him home via private vehicle. He will follow up with his PCP and discharge plan of care. He was happy to be going home. Patient/Family Education Needs: Review discharge instructions regarding activity levels and medications, discussion of self care needs including ask me three. Services Needed at Discharge: Home Health Care Services (HH PT, OT)
--- NOTE | 2021-09-01 12:39 | PDOC.HHF2F ---
Home Health Certification Home Health Certification: 1. Encounter Date and Reason I certify that Dave Simms III was seen by Nohemy Sullivan on 09/01/21 and that I had a [id number] encounter with this patient that meets the physician face to face encounter requirements. 2. Clinical Findings Supporting Skilled Need and Homebound Status I certify that home health services are medically necessary, include either intermittent retirement and/or physical/speech therapy, and that this patient is homebound in that absences from the home require considerable and taxing effort and are infrequent or of short duration, or are attributable to the need to receive medical care. [X] (a) Attached documentation from encounter provides clinical findings supporting skilled need and homebound status (including what assistance patient requires to leave the home). The encounter with the patient was in whole, or in part, for the following medical condition, which is the primary reason for home health care: Right Femoral Neck Fracture Physical and Occupational Therapy: routine evaluation and treatment Homebound: patient is unable to safely leave the unassisted at this time d/t gait instability, pain, deconditioning. 3. Certification and Authentication I certify that I composed the above information based on my clinical judgement relating to this patient's medical condition and, if applicable, clinical findings communicated to me by the NPP or inpatient physician who performed the Home Health Referral. All further orders will be obtained through (Community Based Physician - PCP)
== END 2021-08-31 15:58 | disposition home health service (06) | DRG 522 ==
LOC: ER 16:31 → MS 18:05
PROVIDERS: Nurse Practitioner Family; Physician Assistant; Student in an Organized Health Care Education/Training Program; Admitting Provider Family Medicine; Emergency Provider Registered Nurse Emergency; PCP Nurse Practitioner; Visit Provider Family Medicine
PROC: 0SRR0JZ Replacement of Right Hip Joint, Femoral Surface with Synthetic Substitute, Open Approach (ICD-10-PCS; CPT 27125; principal; 2021-08-29 11:00)
DX: S72.001A Fracture of unspecified part of neck of right femur, initial encounter for closed fracture (principal); I73.9 Peripheral vascular disease, unspecified; J43.9 Emphysema, unspecified; N40.0 Benign prostatic hyperplasia without lower urinary tract symptoms; F17.210 Nicotine dependence, cigarettes, uncomplicated; I10 Essential (primary) hypertension; W18.30XA Fall on same level, unspecified, initial encounter
CPT/HCPCS: 27236; 36415; 73552; 80048; 80053; 82550; 87635; 93005; 96361; 96374; 96375; 96376; 97110; 97162; 97530; 99222; 99291; 70450; 71045; 72170; 72192; 73502; 83735; 84484; 85025; 85610; 85730; 93010; 99223; 99231; 99233; 99239; J0690; J1100; J2270; J2405; J3475